=== PATIENT | male | born 1955 | race Caucasian/White ===

== ENCOUNTER → 2018-02-03 | Outpatient (CLI) | payer BC ==
[2018-02-03 14:57] LABS: HCT 47.7 % (39.0-53.0); HGB 15.4 gm/dL (13.0-17.5); MCH 27.3 pg (25.0-35.0); MCHC 32.2 g/dL (31.0-37.0); MCV 84.7 fL (80.0-100.0); Mean Platelet Volume 6.7; Platelet Count 230 k/uL (150-450); RBC 5.63 m/uL (4.30-5.90); RDW 15.1 % (11.5-15.5); WBC 6.8 k/uL (3.8-10.6)
[2018-02-03 15:07] LABS: Anion Gap 13 mmol/L; Blood Urea Nitrogen 19 mg/dL (9-20); Carbon Dioxide 24 mmol/L (22-30); Chloride 100 mmol/L (98-107); Potassium 4.9 mmol/L (3.5-5.1); Sodium 137 mmol/L (137-145)
== END ==
LOC: LABPAT 13:29
PROVIDERS: ATTEND Internal Medicine Interventional Cardiology
DX: Z01.812 Encounter for preprocedural laboratory examination (principal); I25.10 Atherosclerotic heart disease of native coronary artery without angina pectoris; I10 Essential (primary) hypertension; E78.1 Pure hyperglyceridemia
CPT/HCPCS: 36415; 80051; 82565; 84520; 85027

== ENCOUNTER → 2018-02-20 | Day surgery (SDC) | payer BC, MEDICARE ==
[2018-02-09 18:28] VITALS: BMI 29.4
[~2018-02-20] MED LIST: ALPRAZolam 0.25 MG TAB PO PRN; ALPRAZolam 0.5 MG TAB PO PRN; ASPIRIN 325 MG TAB PO STA; ATORVASTATIN 80 MG TAB PO STA; HYDROmorphone 1 MG/ML 1 ML SYRINGE IVP ONE; INSULIN ASPART 100 UNIT/ML 1 ML 10 ML VIAL SQ SCH; IOPAMIDOL-370 125ML BTL INJ ONE; METOPROLOL TARTRATE 5 MG/5 ML VIAL IVP ONE; MIDAZOLAM 2 MG/2 ML VIAL IV ONE; NITROGLYCERIN SL TABS 0.4 MG TAB SUBLINGUAL PRN; RX INFO: IV CONTRAST WAS GIVEN 1 EACH MISC MISCELLANE PRN; SODIUM CHLORIDE 0.9% 1,000 ML IV SCH; SODIUM CHLORIDE 0.9% 1,000 ML in EMPTY BAG 1 BAG IV ONE; fentaNYL (PF) 50 MCG/ML 2 ML AMP IV ONE
[2018-02-20 10:59] VITALS: RESP 18; TEMP 97.8
[2018-02-20 11:06] LABS: Glucose,Whole Blood 227 mg/dL (75-99)
[2018-02-20] MEDS: LIDOCAINE 1% INJ 10MG/ML (20 ML MDV) SQ ONE ×2 (13:18→13:41)
--- NOTE | 2018-02-20 17:04 | CC ---
CARDIAC CATHETERIZATION REPORT DATE OF SERVICE: February 20, 2018 PERFORMING PHYSICIAN: Federico Estrada MD, socially responsible investment adviser. PROCEDURE PERFORMED: 1. Selective right and left coronary angiogram. 2. Left heart catheterization. INDICATION: This is a pleasant 62-year-old gentleman with known history of coronary artery disease as well as peripheral arterial disease as well as diabetes, hypertension, dyslipidemia, who underwent recently an echocardiogram showed cardiomyopathy with EF of 40%. Subsequently underwent a myocardial perfusion imaging stress test and that showed moderate area of ischemia involving the lateral wall of the LV. Because of that, he was scheduled today to undergo a heart catheterization. APPROACH: Right brachial artery. COMPLICATION: None. LEVEL OF SEDATION: Moderate with sedation length of 36 minutes. PROCEDURE DESCRIPTION: After obtaining an informed consent, the patient was brought to the cardiac brick and blocker aid labor. Initially I attempted accessing the right radial artery but I was not able to feel a good pulse. At that time, I did access the right brachial artery using micropuncture technique, under ultrasound guidance, the micropuncture wire passed easily. Then I did place a 5-Slovenian sheath in the right brachial artery. I gave the patient 8000 units of heparin IV. I did after that selective right and left coronary angiogram using JR4 and JL3.5 catheter. Left heart catheterization was performed using 5-Slovenian pigtail catheter. The procedure was completed without any complication. SELECTIVE CORONARY ANGIOGRAM: 1. The right coronary artery is chronically occluded in the stented segment. The RCA fills by collaterals from the left coronary system. 2. The left main is angiographically normal. It bifurcates into the circumflex and left anterior descending artery. 3. The left circumflex is a large caliber vessel and it is a nondominant vessel. The proximal circumflex appeared to be angiographically normal and gives rise into a large OM branch which appeared to be angiographically normal. The mid circumflex is chronically occluded. There was ipsilateral collaterals [id number] collateral filling the distal circumflex and distal right coronary artery. 4. The left anterior descending coronary artery: The proximal LAD appeared to be angiographically normal. It gives rise into a large diagonal branch which appeared to be angiographically normal. The mid LAD and distal LAD appear to have mild disease only. CONCLUSION: 1. Chronic total occlusion of the mid right coronary artery and mid left circumflex. These finding are known from before. 2. Mild disease involving the left anterior descending artery. POSTPROCEDURE MANAGEMENT: Given the unchanging above findings, I did recommend maximized medical treatment and follow up with the patient. MMODL / IJN: [id number] /
--- NOTE | 2018-02-20 17:13 | LTR ---
February 20, 2018 To: Dr. Juanito Gibbs Re: Kurt Yeager (53) Dear. Dr. Gibbs, Mr. Kurt Yeager underwent heart catheterization and was found to have chronic total occlusion of the right coronary artery and chronic total occlusion of the left circumflex. Both findings are known from before. The LAD appears to have mild disease only. Given the unchanged findings, I did recommend maximizing medical treatment and followup with the patient. I want to thank you for allowing me to participate in his care. Please do not hesitate to call if you have any question or concern. Sincerely, Federico Estrada M.D. MARGE / ZEESHAN: [id number] /
[2018-02-20 18:55] VITALS: BP 135/90; PULSE 82
== END ==
LOC: CATHCVL 10:16
PROVIDERS: ATTEND Internal Medicine Interventional Cardiology
DX: I25.110 Atherosclerotic heart disease of native coronary artery with unstable angina pectoris (principal); I25.82 Chronic total occlusion of coronary artery; R94.39 Abnormal result of other cardiovascular function study; E11.51 Type 2 diabetes mellitus with diabetic peripheral angiopathy without gangrene; I10 Essential (primary) hypertension; I48.91 Unspecified atrial fibrillation; E78.5 Hyperlipidemia, unspecified; E78.1 Pure hyperglyceridemia; E78.00 Pure hypercholesterolemia, unspecified; L97.829 Non-pressure chronic ulcer of other part of left lower leg with unspecified severity; Z89.611 Acquired absence of right leg above knee
CPT/HCPCS: 93458; 85347; C1769 ×2; C1894; J2250; J2001; J3010; J1170; J1644; Q9967

== ENCOUNTER → 2018-03-17 | Outpatient (CLI) | payer MEDICARE ==
--- NOTE | 2018-03-17 10:54 | US ---
EXAMINATION TYPE: US scrotum with doppler. Grayscale and color Doppler Duplex imaging performed of jaymie amezcua scrotum. DATE OF EXAM: 03/17/2018 COMPARISON: NONE CLINICAL HISTORY: R39.89 Enlarged Testicular. Patient has AK amputation with prosthesis; stated has r ight testicular swelling x 3 weeks post cardiac/peripheral catheterization; PVOD, CAD EXAM MEASUREMENTS: TESTICLES: Right Testicle: 4.0 x 2.8 x 3.1 cm Left Testicle: 4.2 x 2.2 x 2.2 cm EPIDIDYMIS HEAD: Right Epididymis: 0.9 x 0.9 x 2.2 cm Left Epididymis: 2.3 x 2.7 x 1.8 cm PW and color flow Doppler was performed to assess for testicular vascularity; good bilateral color f low and waveforms are seen. There is no evidence of testicular torsion. Presence of hydroceles: yes, in right scrotal sac = 4.0 x 4.5 x 3.6cm and in left scrotal sac = 3.8 x 2.7 x 1.4cm Presence of varicoceles: prominent left epididymal head vessels but less than 2.5mm. Prominent epididymis is noted bilaterally. IMPRESSION: 1. Consider right-sided epididymitis. 2. Right greater than left hydroceles. 3. Left-sided varicocele.
== END | disposition home or self-care (01) ==
LOC: RADUSWWP 10:06
PROVIDERS: ATTEND Family Medicine
DX: N43.3 Hydrocele, unspecified (principal); I86.1 Scrotal varices
CPT/HCPCS: 76870; 93975

== ENCOUNTER 2019-12-13 06:38 | Day surgery (SDC) | payer MEDICARE ==
[2019-12-10 09:09] VITALS: BMI 30.5
[~2019-12-13 06:38] MED LIST changes: -ALPRAZolam 0.25 MG TAB PO PRN; -ALPRAZolam 0.5 MG TAB PO PRN; -ASPIRIN 325 MG TAB PO STA; -ATORVASTATIN 80 MG TAB PO STA; -HYDROmorphone 1 MG/ML 1 ML SYRINGE IVP ONE; -INSULIN ASPART 100 UNIT/ML 1 ML 10 ML VIAL SQ SCH; -IOPAMIDOL-370 125ML BTL INJ ONE; +LACTATED RINGERS 1,000 ML IV SCH; +LIDOCAINE 1% (10MG/ML) FOR IV START INTRADERMA PRN; -METOPROLOL TARTRATE 5 MG/5 ML VIAL IVP ONE; -MIDAZOLAM 2 MG/2 ML VIAL IV ONE; -NITROGLYCERIN SL TABS 0.4 MG TAB SUBLINGUAL PRN; -RX INFO: IV CONTRAST WAS GIVEN 1 EACH MISC MISCELLANE PRN; -SODIUM CHLORIDE 0.9% 1,000 ML IV SCH; -SODIUM CHLORIDE 0.9% 1,000 ML in EMPTY BAG 1 BAG IV ONE; -fentaNYL (PF) 50 MCG/ML 2 ML AMP IV ONE
[2019-12-13 06:58] VITALS: TEMP 97.8
[2019-12-13] MEDS ORDERED: LACTATED RINGERS 1,000 ML IV ONE (06:59)
[2019-12-13 07:08] LABS: Glucose,Whole Blood 151 mg/dL (75-99)
[2019-12-13] MEDS ORDERED: PROPOFOL 10 MG/ML 20 ML VIAL IV ONE (07:41)
--- NOTE | 2019-12-13 08:10 | P.PCN ---
Date of Procedure: 12/13/19 Description of Procedure: BRIEF HISTORY: Patient is a 64-year-old female presenting for outpatient colonoscopy for screening for malignant neoplasm of the colon. Patient has a history of colon polyps in the past. He denies any change in bowel habits, blood per rectum or abdominal pain. PROCEDURE PERFORMED: Colonoscopy with polypectomy. PREOPERATIVE DIAGNOSIS: Screening for malignant neoplasm of the colon, last colonoscopy 5 years ago, personal history of colon polyps. ESTIMATED BLOOD LOSS: Minimal. IV sedation per Anesthesia. PROCEDURE: After informed consent was obtained, the patient, was brought into the endoscopy unit. IV sedation was administered by Anesthesia under continuous monitoring. Digital rectal examination was normal. Initially the Olympus CF-190 flexible video colonoscope was then inserted in the rectum, gradually advanced into the cecum without any difficulty. Careful examination was performed as the scope was gradually being withdrawn. Ileocecal valve and the appendiceal orifice were visualized and appeared normal. Prep was excellent. Mucosa of the cecum, ascending colon, transverse colon, descending colon, sigmoid colon, and rectum appeared normal. Multiple scattered diverticula throughout the colon. 2 diminutive sigmoid polyps removed with cold forcep polypectomy. Retroflexion was performed in the rectum and no lesions were seen, low-grade internal hemorrhoids. The patient tolerated the procedure well. IMPRESSION: 2 diminutive sigmoid polyps removed with cold forcep polypectomy. Mild sigmoid diverticulosis. Internal hemorrhoids. RECOMMENDATIONS: Findings of this examination were discussed with the patient and his . Okay to resume diet. Okay to resume medications. Await pathology from polypectomies. Would recommend repeat colonoscopy in 7 years for colon polyps pending pathology from polypectomies.
[2019-12-13 08:36] VITALS: BP 139/81; PULSE 83; RESP 16
== END 2019-12-13 08:39 | disposition home or self-care (01) ==
LOC: ORWHC2ENDO 06:38
PROVIDERS: ATTEND Internal Medicine
DX: Z12.11 Encounter for screening for malignant neoplasm of colon (principal); K63.5 Polyp of colon; K57.30 Diverticulosis of large intestine without perforation or abscess without bleeding; K64.8 Other hemorrhoids; Z86.010 Personal history of colon polyps; Z87.891 Personal history of nicotine dependence; I25.10 Atherosclerotic heart disease of native coronary artery without angina pectoris; I10 Essential (primary) hypertension; E78.5 Hyperlipidemia, unspecified; E11.51 Type 2 diabetes mellitus with diabetic peripheral angiopathy without gangrene; I25.2 Old myocardial infarction; Z98.890 Other specified postprocedural states; Z79.01 Long term (current) use of anticoagulants; Z79.02 Long term (current) use of antithrombotics/antiplatelets; Z79.82 Long term (current) use of aspirin; Z79.4 Long term (current) use of insulin; Z79.1 Long term (current) use of non-steroidal anti-inflammatories (NSAID); Z79.899 Other long term (current) drug therapy; I48.91 Unspecified atrial fibrillation; Z88.8 Allergy status to other drugs, medicaments and biological substances
CPT/HCPCS: 88305; 45380; J2704

== ENCOUNTER 2021-08-05 20:25 | Emergency (ER) | payer MEDICARE ==
[2021-08-05 21:48] VITALS: BP 159/88; PULSE 85; RESP 18; TEMP 98.2
[2021-08-05] MEDS ORDERED: LIDOCAINE 1% PF 10 MG/ML (5 ML AMP) SQ ONE (22:39)
[2021-08-05] MEDS ORDERED: DIPH,PERTUS(ACELL)TETVAC-LF 0.5 ML VIAL IM ONE (22:40)
--- NOTE | 2021-08-05 23:25 | ED ---
General Adult HPI - General Chief complaint: Wound/Laceration Stated complaint: finger lac Time Seen by Provider: 08/05/21 22:44 Source: patient, RN notes reviewed Mode of arrival: wheelchair Limitations: no limitations - History of Present Illness Initial comments: Patient is a 66-year-old male presents to the emergency room after cutting the tip of his left second digit on a table saw earlier today. He has a past medical history significant for diabetes, recurrent vascular ulcers with an AKA. He has a left lower extremity prosthesis. 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 He is unsure when his last tetanus was. He denies any other complaints or concerns at this time. - Related Data Home Medications Medication Instructions Recorded Confirmed Atorvastatin [Lipitor] 40 mg PO DAILY 11/07/13 12/12/19 lisinopriL [Zestril] 2.5 mg PO 1200 07/24/14 12/12/19 Pentoxifylline [TRENtal] 400 mg PO TID 02/09/18 12/12/19 Gabapentin [Neurontin] 600 mg PO DAILY PRN 12/10/19 12/12/19 Ibuprofen 400 mg PO DIRECTED PRN 12/10/19 12/12/19 Rivaroxaban [Xarelto] 20 mg PO DAILY 12/10/19 12/12/19 Spironolactone 12.5 mg PO DAILY 12/10/19 12/12/19 carvediloL [Coreg] 6.25 mg PO BID 12/10/19 12/12/19 metFORMIN HCL [Glucophage] 1,000 mg PO BID 12/10/19 12/12/19 Insulin NPH Hum/Reg Insulin Hm 35 unit SQ QAM 12/12/19 12/12/19 [NovoLIN 70-30 100 UNIT/ML VIAL] Insulin NPH Hum/Reg Insulin Hm 17 unit SQ HS 12/12/19 12/12/19 [Novolin 70-30 Flexpen] Previous Rx's Medication Instructions Recorded Aspirin EC [Ecotrin Low Dose] 81 mg PO DAILY #30 tablet. 10/06/13 Sulfamethox-Tmp 800-160Mg [Bactrim 1 tab PO Q12HR 5 Days #10 tab 08/05/21 DS 800-160 mg] Allergies Allergy/AdvReac Type Severity Reaction Status Date / Time empagliflozin AdvReac Unknown joints ache Verified 08/05/21 21:48 [From Jardiance] Review of Systems ROS Statement: Those systems with pertinent positive or pertinent negative responses have been documented in the HPI. ROS Other: All systems not noted in ROS Statement are negative. Past Medical History Past Medical History: Diabetes Mellitus, Deep Vein Thrombosis (DVT), Hyperlipidemia, Hypertension, Myocardial Infarction ([place]), Sleep Apnea/CPAP/BIPAP, Vascular Disorder Additional Past Medical History / Comment(s): HX OF DVT'S 2013 (legs & arm)., PAD, Hx DIABETIC ULCERS, LEFT ANKLE WOUND THAT IS HEALING, HX OF SLEEP APNEA(RESOLVED WITH WT LOSS)., RIGHT AKA WITH PHANTHOM FOOT PAIN., WEARS PRO STHESIS. Last Myocardial Infarction Date:: 2001 History of Any Multi-Drug Resistant Organisms: None Reported Past Surgical History: Heart Catheterization With Stent, Hernia Repair Additional Past Surgical History / Comment(s): right FEMPOP BYPASS by Dr. Orozco on 11/15/13, STENTS TO MARIANELA GROINS DONE AT [facility] in 2006, RIGHT ABOVE KNEE AMPUTATION 11/2013. AMPUTATION 4TH TOES LT FOOT Past Anesthesia/Blood Transfusion Reactions: No Reported Reaction Date of Last Stent Placement:: 2001 & 2006 Past Psychological History: No Psychological Hx Reported Smoking Status: Former smoker Past Alcohol Use History: Rare Past Drug Use History: None Reported - Past Family History Father Family Medical History: CVA/TIA, Diabetes Mellitus, Vascular Disorder Additional Family Medical History / Comment(s): leg amputation, in long term d/t diabetic cx. Mother Family Medical History: Cancer, Coronary Artery Disease (CAD) Additional Family Medical History / Comment(s): LYMPHOMA Sister(s) Family Medical History: Cancer General Exam Limitations: no limitations General appearance: alert, in no apparent distress Head exam: Present: atraumatic, normocephalic, normal inspection Eye exam: Present: normal appearance, PERRL, EOMI. Absent: scleral icterus, conjunctival injection, periorbital swelling ENT exam: Present: normal exam, mucous membranes moist Left Hand Wrist exam: Present: full ROM, tenderness, laceration. Absent: nail avulsion Vascular: Absent: vascular compromise Course Vital Signs 08/05/21 21:44 Temperature 98.2 F Pulse Rate 85 Respiratory 18 Rate Blood Pressure 159/88 O2 Sat by Pulse 96 Oximetry Procedures - Laceration Laceration #1 Consent Obtained: verbal consent Indication: laceration Site: other (left second digit) Description: linear Depth: simple, single layer Anesthetic Used: lidocaine 1% Anesthesia Technique: local infiltration Pre-repair: irrigated extensively Type of Sutures: nylon Size of Sutures: 4-0 Number of Sutures: 3 Technique: simple, interrupted Complications: bleeding (Minimal) Patient Tolerated Procedure: well, no complications Medical Decision Making - Medical Decision Making No indication for diagnostic imaging. Sutures 3 placed to the distal tip of left second digit. Tolerated well. Tetanus will be given due to unknown last tetanus. Will give empiric antibiotics due to extensive past medical history and diabetic history. Case reviewed with Dr. Yepez Disposition Clinical Impression: Laceration Disposition: HOME SELF-CARE Condition: Fair Instructions (If sedation given, give patient instructions): Laceration (ED), Care For Your Stitches (ED) Additional Instructions: Please keep wound clean and dry. If needed keep covered. Complete course of empiric antibiotics and monitor for signs and symptoms of infection. Please have sutures removed in 7-10 days. Utilize Tylenol as needed for pain. Avoid ibuprofen with Pradaxa. Please return to the Emergency Department if symptoms worsen or any other concerns. Prescriptions: Sulfamethox-Tmp 800-160Mg [Bactrim DS 800-160 mg] 1 tab PO Q12HR 5 Days #10 tab Is patient prescribed a controlled substance at d/c from ED?: No Referrals: Ember Almonte DO [Primary Care Provider] - 1-2 days Time of Disposition: 23:30
== END 2021-08-05 23:33 | disposition home or self-care (01) ==
LOC: EC 20:25
DX: S61.211A Laceration without foreign body of left index finger without damage to nail, initial encounter (principal); E11.9 Type 2 diabetes mellitus without complications; I10 Essential (primary) hypertension; I25.2 Old myocardial infarction; E78.5 Hyperlipidemia, unspecified; Z86.718 Personal history of other venous thrombosis and embolism; Z87.891 Personal history of nicotine dependence; Z79.4 Long term (current) use of insulin; Z79.84 Long term (current) use of oral hypoglycemic drugs; Z79.01 Long term (current) use of anticoagulants; Z79.82 Long term (current) use of aspirin; Z79.899 Other long term (current) drug therapy; W27.0XXA Contact with workbench tool, initial encounter
CPT/HCPCS: 12001; 99282

== ENCOUNTER 2021-09-19 15:47 | Emergency (ER) | payer MEDICARE ==
--- NOTE | 2021-09-19 16:05 | ED ---
General Adult HPI - General Chief complaint: Urogenital Stated complaint: blood in urine Time Seen by Provider: 09/19/21 15:52 Source: patient, RN notes reviewed Mode of arrival: ambulatory Limitations: no limitations - History of Present Illness Initial comments: Patient is a pleasant 66-year-old male presenting to the emergency department with concerns with hematuria. Onset of symptoms was this morning. Patient has had around 3 episodes today. No dysuria. No frequency. No abdominal or flank pain. No history of similar symptoms previously. Patient does take several to secondary to history of previous DVTs. No chest pain or dyspnea. - Related Data Home Medications Medication Instructions Recorded Confirmed Atorvastatin [Lipitor] 40 mg PO DAILY 11/07/13 12/12/19 lisinopriL [Zestril] 2.5 mg PO 1200 07/24/14 12/12/19 Pentoxifylline [TRENtal] 400 mg PO TID 02/09/18 12/12/19 Gabapentin [Neurontin] 600 mg PO DAILY PRN 12/10/19 12/12/19 Ibuprofen 400 mg PO DIRECTED PRN 12/10/19 12/12/19 Rivaroxaban [Xarelto] 20 mg PO DAILY 12/10/19 12/12/19 Spironolactone 12.5 mg PO DAILY 12/10/19 12/12/19 carvediloL [Coreg] 6.25 mg PO BID 12/10/19 12/12/19 metFORMIN HCL [Glucophage] 1,000 mg PO BID 12/10/19 12/12/19 Insulin NPH Hum/Reg Insulin Hm 35 unit SQ QAM 12/12/19 12/12/19 [NovoLIN 70-30 100 UNIT/ML VIAL] Insulin NPH Hum/Reg Insulin Hm 17 unit SQ HS 12/12/19 12/12/19 [Novolin 70-30 Flexpen] Previous Rx's Medication Instructions Recorded Aspirin EC [Ecotrin Low Dose] 81 mg PO DAILY #30 tablet. 10/06/13 Sulfamethox-Tmp 800-160Mg [Bactrim 1 tab PO Q12HR 5 Days #10 tab 08/05/21 DS 800-160 mg] Cephalexin [Keflex] 500 mg PO TID #21 cap 09/19/21 Allergies Allergy/AdvReac Type Severity Reaction Status Date / Time empagliflozin AdvReac Unknown joints ache Verified 09/19/21 15:51 [From Jardiance] Review of Systems ROS Statement: Those systems with pertinent positive or pertinent negative responses have been documented in the HPI. ROS Other: All systems not noted in ROS Statement are negative. Constitutional: Denies: fever Eyes: Denies: eye pain ENT: Denies: ear pain Respiratory: Denies: cough, dyspnea Cardiovascular: Denies: chest pain Endocrine: Denies: fatigue Gastrointestinal: Denies: abdominal pain, vomiting Genitourinary: Reports: hematuria. Denies: urgency, dysuria, frequency, discharge, testicular pain, testicular mass Musculoskeletal: Denies: back pain Past Medical History Past Medical History: Diabetes Mellitus, Deep Vein Thrombosis (DVT), Hyperlipidemia, Hypertension, Myocardial Infarction ([place]), Sleep Apnea/CPAP/BIPAP, Vascular Disorder Additional Past Medical History / Comment(s): HX OF DVT'S 2013 (legs & arm)., PAD, Hx DIABETIC ULCERS, LEFT ANKLE WOUND THAT IS HEALING, HX OF SLEEP APNEA(RESOLVED WITH WT LOSS)., RIGHT AKA WITH PHANTHOM FOOT PAIN., WEARS PROSTHESIS. Last Myocardial Infarction Date:: 2001 History of Any Multi-Drug Resistant Organisms: None Reported Past Surgical History: Heart Catheterization With Stent, Hernia Repair Additional Past Surgical History / Comment(s): right FEMPOP BYPASS by Dr. Orozco on 11/15/13, STENTS TO MARIANELA GROINS DONE AT [facility] in 2006, RIGHT ABOVE KNEE AMPUTATION 11/2013. AMPUTATION 4TH TOES LT FOOT Past Anesthesia/Blood Transfusion Reactions: No Reported Reaction Date of Last Stent Placement:: 2001 & 2006 Past Psychological History: No Psychological Hx Reported Smoking Status: Former smoker Past Alcohol Use History: Rare Past Drug Use History: None Reported - Past Family History Father Family Medical History: CVA/TIA, Diabetes Mellitus, Vascular Disorder Additional Family Medical History / Comment(s): leg amputation, in senior living d/t diabetic cx. Mother Family Medical History: Cancer, Coronary Artery Disease (CAD) Additional Family Medical History / Comment(s): LYMPHOMA Sister(s) Family Medical History: Cancer General Exam Limitations: no limitations General appearance: alert, in no apparent distress Head exam: Present: normocephalic Eye exam: Present: normal appearance Neck exam: Present: normal inspection Respiratory exam: Present: normal lung sounds bilaterally Cardiovascular Exam: Present: regular rate, normal rhythm GI/Abdominal exam: Present: soft. Absent: tenderness exam: Present: normal inspection. Absent: testicular tenderness, urethral d ischarge, scrotal swelling Extremities exam: Present: other (Right leg amputation) Neurological exam: Present: alert Psychiatric exam: Present: normal affect, normal mood Skin exam: Present: normal color Course Vital Signs 09/19/21 15:49 Temperature 97.2 F L Pulse Rate 94 Respiratory 20 Rate Blood Pressure 137/76 O2 Sat by Pulse 96 Oximetry Medical Decision Making - Medical Decision Making Patient reevaluated. Patient and family updated - Lab Data Result diagrams: 09/19/21 16:12 09/19/21 16:12 Lab Results 09/19/21 09/19/21 09/19/21 Range/Units 16:12 16:12 16:12 WBC 4.7 (3.8-10.6) k/uL RBC 5.21 (4.30-5.90) m/uL Hgb 15.3 (13.0-17.5) gm/dL Hct 45.9 (39.0-53.0) % MCV 88.0 (80.0-100.0) fL MCH 29.4 (25.0-35.0) pg MCHC 33.4 (31.0-37.0) g/dL RDW 14.1 (11.5-15.5) % Plt Count 167 (150-450) k/uL MPV 7.6 Neutrophils % 48 % Lymphocytes % 41 % Monocytes % 6 % Eosinophils % 2 % Basophils % 1 % Neutrophils # 2.2 (1.3-7.7) k/uL Lymphocytes # 1.9 (1.0-4.8) k/uL Monocytes # 0.3 (0-1.0) k/uL Eosinophils # 0.1 (0-0.7) k/uL Basophils # 0.1 (0-0.2) k/uL PT 10.6 (9.0-12.0) sec INR 1.0 (<1.2) APTT 25.5 (22.0-30.0) sec Sodium (137-145) mmol/L Potassium (3.5-5.1) mmol/L Chloride (98-107) mmol/L Carbon Dioxide (22-30) mmol/L Anion Gap mmol/L BUN (9-20) mg/dL Creatinine (0.66-1.25) mg/dL Est GFR (CKD-EPI)AfAm (>60 ml/min/1.73 sqM) Est GFR (CKD-EPI)NonAf (>60 ml/min/1.73 sqM) Glucose (74-99) mg/dL Calcium (8.4-10.2) mg/dL Total Bilirubin (0.2-1.3) mg/dL AST (17-59) U/L ALT (4-49) U/L Alkaline Phosphatase (38-126) U/L Total Protein (6.3-8.2) g/dL Albumin (3.5-5.0) g/dL Urine Color Red Urine Appearance Turbid (Clear) Urine pH 5.5 (5.0-8.0) Ur Specific [place] 1.021 (1.001-1.035) Urine Protein 2+ H (Negative) Urine Glucose (UA) 1+ H (Negative) Urine Ketones Trace H (Negative) Urine Blood Large H (Negative) Urine Nitrite Negative (Negative) Urine Bilirubin Negative (Negative) Urine Urobilinogen <2.0 (<2.0) mg/dL Ur Leukocyte Esterase Trace H (Negative) Urine RBC >182 H (0-5) /hpf 09/19/21 Range/Units 16:12 WBC (3.8-10.6) k/uL RBC (4.30-5.90) m/uL Hgb (13.0-17.5) gm/dL Hct (39.0-53.0) % MCV (80.0-100.0) fL MCH (25.0-35.0) pg MCHC (31.0-37.0) g/dL RDW (11.5-15.5) % Plt Count (150-450) k/uL MPV Neutrophils % % Lymphocytes % % Monocytes % % Eosinophils % % Basophils % % Neutrophils # (1.3-7.7) k/uL Lymphocytes # (1.0-4.8) k/uL Monocytes # (0-1.0) k/uL Eosinophils # (0-0.7) k/uL Basophils # (0-0.2) k/uL PT (9.0-12.0) sec INR (<1.2) APTT (22.0-30.0) sec Sodium 140 (137-145) mmol/L Potassium 4.3 (3.5-5.1) mmol/L Chloride 107 (98-107) mmol/L Carbon Dioxide 22 (22-30) mmol/L Anion Gap 11 mmol/L BUN 14 (9-20) mg/dL Creatinine 0.72 (0.66-1.25) mg/dL Est GFR (CKD-EPI)AfAm >90 (>60 ml/min/1.73 sqM) Est GFR (CKD-EPI)NonAf >90 (>60 ml/min/1.73 sqM) Glucose 219 H (74-99) mg/dL Calcium 9.5 (8.4-10.2) mg/dL Total Bilirubin 0.4 (0.2-1.3) mg/dL AST 21 (17-59) U/L ALT 24 (4-49) U/L Alkaline Phosphatase 64 (38-126) U/L Total Protein 6.6 (6.3-8.2) g/dL Albumin 4.0 (3.5-5.0) g/dL Urine Color Urine Appearance (Clear) Urine pH (5.0-8.0) Ur Specific [place] (1.001-1.035) Urine Protein (Negative) Urine Glucose (UA) (Negative) Urine Ketones (Negative) Urine Blood (Negative) Urine Nitrite (Negative) Urine Bilirubin (Negative) Urine Urobilinogen (<2.0) mg/dL Ur Leukocyte Esterase (Negative) Urine RBC (0-5) /hpf - Radiology Data Radiology results: image reviewed (KUB shows possible left renal calculi) Disposition Clinical Impression: Hematuria Disposition: HOME SELF-CARE Condition: Stable Instructions (If sedation given, give patient instructions): Hematuria (ED) Additional Instructions: Please follow-up with primary care physician Tuesday. Have primary care physician further direct use of Xarelto. Hold Xarelto through the weekend. Please also follow-up with urology in the next couple days for recheck, number provided. Return for other areas of bleeding, pain, fever, unable to pass urine, worsening symptoms or other concerns. Prescription for antibiotics sent to pharmacy Prescriptions: Cephalexin [Keflex] 500 mg PO TID #21 cap Is patient prescribed a controlled substance at d/c from ED?: No Referrals: Ember Almonte DO [Primary Care Provider] - 1-2 days Paras Arango MD [STAFF PHYSICIAN] - 1-2 days Time of Disposition: 17:39
[2021-09-19 16:31] LABS: Basophils # (A) 0.1 k/uL (0-0.2); Basophils % (A) 1 %; Eosinophils # (A) 0.1 k/uL (0-0.7); Eosinophils % (A) 2 %; HCT 45.9 % (39.0-53.0); HGB 15.3 gm/dL (13.0-17.5); Lymphocytes # (A) 1.9 k/uL (1.0-4.8); Lymphocytes % (A) 41 %; MCH 29.4 pg (25.0-35.0); MCHC 33.4 g/dL (31.0-37.0); Mean Platelet Volume 7.6; Monocytes # (A) 0.3 k/uL (0-1.0); Monocytes % (A) 6 %; Neutrophils # (A) 2.2 k/uL (1.3-7.7); Neutrophils % (A) 48 %; Platelet Count 167 k/uL (150-450); RBC 5.21 m/uL (4.30-5.90); RDW 14.1 % (11.5-15.5); WBC 4.7 k/uL (3.8-10.6)
[2021-09-19 16:42] LABS: Partial Thromboplastin Time 25.5 sec (22.0-30.0); Prothrombin Time 10.6 sec (9.0-12.0)
[2021-09-19 16:49] LABS: ALT 24 U/L (4-49); AST 21 U/L (17-59); African American GFR (CKD) >90 (>60 ml/min/1.73 sqM); Alkaline Phosphatase 64 U/L (38-126); Anion Gap 11 mmol/L; Blood Urea Nitrogen 14 mg/dL (9-20); Calcium 9.5 mg/dL (8.4-10.2); Carbon Dioxide 22 mmol/L (22-30); Chloride 107 mmol/L (98-107); Glucose 219 mg/dL (74-99); Non-African American GFR(CKD) >90 (>60 ml/min/1.73 sqM); Potassium 4.3 mmol/L (3.5-5.1); Sodium 140 mmol/L (137-145); Total Bilirubin 0.4 mg/dL (0.2-1.3); Total Protein 6.6 g/dL (6.3-8.2)
--- NOTE | 2021-09-19 17:09 | XR ---
EXAMINATION TYPE: XR KUB DATE OF EXAM: 09/19/2021 COMPARISON: 11/18/2013 HISTORY: Abdominal pain TECHNIQUE: FINDINGS: 2 views upright were obtained. No sign of intestinal obstruction or pneumoperitoneum. Fecal pattern is normal. No evidence of a mass. There is possible 4 mm calculus over the left kidney. IMPRESSION: Nonacute abdomen. Possible left renal calculus.
[2021-09-19 17:10] LABS: RBC,Urine >182 /hpf (0-5)
[2021-09-19 17:21] LABS: Appearance,Urine Turbid (Clear); Bilirubin,Urine Negative (Negative); Blood,Urine Large (Negative); Color,Urine Red; Glucose,Urine (UA) 1+ (Negative); Ketones,Urine Trace (Negative); Leukocyte Esterase,Urine Trace (Negative); Nitrite,Urine Negative (Negative); PH, Urine 5.5 (5.0-8.0); Protein,Urine 2+ (Negative); Specific Gravity,Urine 1.021 (1.001-1.035); Urobilinogen,Urine <2.0 mg/dL (<2.0)
[2021-09-19 17:58] VITALS: BP 139/68; PULSE 79; RESP 16; TEMP 98
== END 2021-09-19 17:58 | disposition home or self-care (01) ==
LOC: EC 15:47
DX: R31.9 Hematuria, unspecified (principal); E11.9 Type 2 diabetes mellitus without complications; Z87.891 Personal history of nicotine dependence; Z88.8 Allergy status to other drugs, medicaments and biological substances
CPT/HCPCS: 36415; 74018; 80053; 81001; 85025; 85610; 85730; 99283

== ENCOUNTER → 2021-10-14 | Outpatient (CLI) | payer MEDICARE ==
[2021-10-14 14:07] LABS: African American GFR (CKD) >90 (>60 ml/min/1.73 sqM); Blood Urea Nitrogen 15 mg/dL (9-20); Non-African American GFR(CKD) >90 (>60 ml/min/1.73 sqM)
--- NOTE | 2021-10-14 17:31 | CT ---
EXAMINATION TYPE: CT urogram wo/w con DATE OF EXAM: 10/14/2021 COMPARISON: None HISTORY: Gross hematuria CT DLP: 4191 mGycm Automated exposure control for dose reduction was used. Contrast: None Technique: Axial images 3 mm thick sections. Early and delayed post contrast imaging is performed. Th ree-D reconstructed images performed by the technologist are reviewed. FINDINGS: Renal calyces infundibula and renal pelves appear normal. Ureters were visualized following normal ca liber course and contour to the urinary bladder. The urinary bladder may have a defect near the inser tion of the left ureter. Diffuse wall thickening is present with a more focal nodular thickening. Add itional workup for urinary bladder wall neoplasm is recommended. Note is made of a 0.8 cm nonobstructing inferior pole left renal stone. Limited CT sections are obtained from the lung bases which are clear CT ABDOMEN: Liver has mild fatty infiltration. Spleen and pancreas as visualized are unremarkable. Th e gallbladder is unremarkable. Adrenal glands are normal. Kidneys appear normal without masses cysts or hydronephrosis. Vascular calcifications within the aorta. There is an aortic stent anterior to the aorta which extends to the femoral arteries. Prostate is prominent. Lateral wall abnormality is les s well-visualized on the axial plane images. IMPRESSION: 1. 4.0 X 1.3 CM NODULAR WALL THICKENING ALONG THE LEFT LATERAL URINARY BLADDER WALL NEAR THE INSERTIO N OF THE URETER SUSPICIOUS FOR UNDERLYING MASS. ADDITIONAL WORKUP FOR NEOPLASM IS RECOMMENDED. 2. NONOBSTRUCTING 0.8 CM INFERIOR POLE LEFT RENAL STONE
== END | disposition home or self-care (01) ==
LOC: RADCTMAIN 13:05
PROVIDERS: ATTEND Urology
DX: N32.89 Other specified disorders of bladder (principal); R31.0 Gross hematuria
CPT/HCPCS: 82565; 84520; 74178; 36415; 74400; Q9967

== ENCOUNTER → 2021-11-30 | Outpatient (CLI) | payer MEDICARE ==
--- NOTE | 2021-11-30 15:18 | NM ---
EXAMINATION TYPE: NM bone scan whole body DATE OF EXAM: 11/30/2021 COMPARISON: NONE HISTORY: Bladder cancer. Delayed whole-body scanning was performed following the injection of 22.7 mCi Tc 99m MDP. Images acq uired 3 hours post injection. FINDINGS: There is increased uptake within the bilateral shoulder, sacroiliac joints , left knee, and left ankl e/foot consistent with degenerative changes. Focal increased uptake within the sternum severity relat ed to degenerative changes. No other photopenic areas or areas of increased activity are identified. Physiologic radiotracer activity is demonstrated within the kidneys and bladder. IMPRESSION: No definitive uptake to suggest metastatic disease.
== END | disposition home or self-care (01) ==
LOC: RADNMMAIN 09:35
PROVIDERS: ATTEND Urology
DX: C67.9 Malignant neoplasm of bladder, unspecified (principal)
CPT/HCPCS: 78306; A9503

== ENCOUNTER 2022-05-07 08:57 | Day surgery (SDC) | payer MEDICARE ==
[~2022-05-07 08:57] MED LIST changes: +ACETAMINOPHEN TAB 500 MG TAB PO PRN; +HEPARIN SODIUM,PORCINE/PF 5,000 UNIT/0.5 ML SYRINGE SQ PRN; -LACTATED RINGERS 1,000 ML IV SCH; -LIDOCAINE 1% (10MG/ML) FOR IV START INTRADERMA PRN
[2022-05-07] MEDS ORDERED: LACTATED RINGERS 1,000 ML IV ONE (09:17)
[2022-05-07 09:34] VITALS: TEMP 97.5
[2022-05-07 09:34] LABS: Glucose,Whole Blood 285 mg/dL (70-110)
--- NOTE | 2022-05-07 09:42 | P.GSHP ---
History of Present Illness H&P Date: 05/07/22 Chief Complaint: Bladder cancer 66-year-old male here for Port-A-Cath removal. Patient with history of bladder cancer. He required Port-A-Cath placement earlier this year. Unfortunately the patient's catheter developed a fibrin sheath limiting the usage of the catheter. He is no longer utilizing the port and oncology is advising removal. Past Medical History Past Medical History: Cancer, Diabetes Mellitus, Deep Vein Thrombosis (DVT), Hyperlipidemia, Hypertension, Myocardial Infarction ([place]), Sleep Apnea/CPAP/BIPAP, Vascular Disorder Additional Past Medical History / Comment(s): HX OF DVT'S 2013 (legs & arm)., PAD, Hx DIABETIC ULCERS, LEFT ANKLE WOUND THAT IS HEALING, HX OF SLEEP APNEA(RESOLVED WITH WT LOSS)., RIGHT AKA , WEARS PROSTHESIS. bladder cancer get injections to his eyes for diabetic retinopathy approx q 6 weeks Last Myocardial Infarction Date:: 2001 History of Any Multi-Drug Resistant Organisms: None Reported Past Surgical History: Bladder Surgery, Heart Catheterization With Stent, Hernia Repair Additional Past Surgical History / Comment(s): right FEMPOP BYPASS by Dr. Orozco on 11/15/13, STENTS TO MARIANELA GROINS DONE AT [facility] in 2006, RIGHT ABOVE KNEE AMPUTATION 11/2013. AMPUTATION 4TH TOES LT FOOT, "BLADDER SCRAPING" X2 AT [facility], URETHRAL STENT PLACMENT AND REMOVAL. amputation revision feb 2021 Past Anesthesia/Blood Transfusion Reactions: No Reported Reaction Additional Past Anesthesia/Blood Transfusion Reaction / Comment(s): PT STATES HE FELT REALLY "POORLY" AFTER ONE OF HIS RECENT SURGERIES AT [facility] Date of Last Stent Placement:: 2001 & 2006 Smoking Status: Former smoker - Past Family History Father Family Medical History: CVA/TIA, Diabetes Mellitus, Vascular Disorder Additional Family Medical History / Comment(s): leg amputation, in residential d/t diabetic cx. Mother Family Medical History: Cancer, Coronary Artery Disease (CAD) Additional Family Medical History / Comment(s): LYMPHOMA Sister(s) Family Medical History: Cancer Medications and Allergies Home Medications Medication Instructions Recorded Confirmed Type Aspirin EC [Ecotrin Low Dose] 81 mg PO DAILY #30 tablet. 10/06/13 05/07/22 Rx Atorvastatin [Lipitor] 40 mg PO DAILY 11/07/13 05/07/22 History lisinopriL [Zestril] 2.5 mg PO DAILY 07/24/14 05/07/22 History Pentoxifylline [TRENtal] 400 mg PO TID 02/09/18 05/07/22 History Gabapentin [Neurontin] 300 mg PO QID PRN 12/10/19 05/07/22 History Ibuprofen 200 mg PO BID 12/10/19 05/07/22 History Rivaroxaban [Xarelto] 20 mg PO DAILY 12/10/19 05/07/22 History Spironolactone 12.5 mg PO DAILY 12/10/19 05/07/22 History carvediloL [Coreg] 12.5 mg PO BID 12/10/19 05/07/22 History metFORMIN HCL [Glucophage] 1,000 mg PO BID 12/10/19 05/07/22 History Insulin NPH Hum/Reg Insulin Hm 50 unit SQ BID 12/12/19 05/07/22 History [Novolin 70-30 Flexpen] Loratadine 10 mg PO DAILY 03/11/22 05/07/22 History Allergies Allergy/AdvReac Type Severity Reaction Status Date / Time empagliflozin AdvReac Unknown joints ache Verified 05/07/22 09:22 [From Jardiance] Surgical - Exam Vital Signs Temp Pulse Resp BP Pulse Ox 97.5 F L 106 H 15 168/77 98 05/07/22 09:32 05/07/22 09:32 05/07/22 09:32 05/07/22 09:32 05/07/22 09:32 Physical exam: General: Well-developed, well-nourished HEENT: Normocephalic, sclerae nonicteric Abdomen: Nontender, nondistended Extremities: No edema Neuro: Alert and oriented Results - Labs Abnormal Lab Results - Last 24 Hours (Table) 05/07/22 Range/Units 09:32 POC Glucose (mg/dL) 285 H (70-110) mg/dL Assessment and Plan (1) Bladder cancer Narrative/Plan: Will proceed with Port-A-Cath removal at this time. Current Visit: No Status: Acute Code(s): C67.9 - MALIGNANT NEOPLASM OF BLADDER, UNSPECIFIED SNOMED Code(s): 553951129
[2022-05-07] MEDS ORDERED: LIDOCAINE 1% INJ 10MG/ML (5 ML VIAL-PF) SQ ONE ×2 (10:44→11:10)
[2022-05-07] MEDS ORDERED: MIDAZOLAM 2 MG/2 ML VIAL ONE (10:50)
[2022-05-07] MEDS ORDERED: PROPOFOL 10 MG/ML 20 ML VIAL IV ONE (10:50)
[2022-05-07] MEDS ORDERED: fentaNYL (PF) 50 MCG/ML 2 ML AMP ONE (10:50)
[2022-05-07] MEDS ORDERED: NALOXONE 0.4 MG/ML 1 ML VIAL IV PRN (11:36)
--- NOTE | 2022-05-07 11:39 | P.OP ---
Date of Procedure: 05/07/22 Procedure(s) Performed: PREOPERATIVE DIAGNOSIS: Bladder cancer POSTOPERATIVE DIAGNOSIS: Same PROCEDURE: Port-A-Cath removal SURGEON: Tammy EBL: Minimal ANESTHESIA: Sedation COMPLICATIONS: None OPERATIVE PROCEDURE: Patient was placed in the supine position. The patient was sedated per anesthesia that time. The chest was prepped and draped in the usual sterile fashion. The skin was localized with Marcaine solution. The previous incision was re-incised using a scalpel. The port was easily excised using accommodation of blunt dissection sharp dissection and electrocautery. The subcutaneous tissues were reapproximated using 3-0 Vicryl sutures. The skin was reapproximated using 4-0 Monocryl sutures. Skin glue was then applied. DISPOSITION: Stable to recovery room
[2022-05-07 11:44] LABS: Glucose,Whole Blood 259 mg/dL (70-110)
[2022-05-07 11:57] VITALS: BP 147/88; PULSE 94; RESP 20
== END 2022-05-07 12:13 | disposition home or self-care (01) ==
LOC: OR 08:57
PROVIDERS: ATTEND Surgery
DX: C67.9 Malignant neoplasm of bladder, unspecified (principal); Z45.2 Encounter for adjustment and management of vascular access device; E11.9 Type 2 diabetes mellitus without complications; E78.5 Hyperlipidemia, unspecified; I10 Essential (primary) hypertension; I25.2 Old myocardial infarction; G47.30 Sleep apnea, unspecified; I25.10 Atherosclerotic heart disease of native coronary artery without angina pectoris; Z89.611 Acquired absence of right leg above knee; Z98.890 Other specified postprocedural states; Z86.718 Personal history of other venous thrombosis and embolism; Z85.51 Personal history of malignant neoplasm of bladder; Z95.5 Presence of coronary angioplasty implant and graft; Z87.891 Personal history of nicotine dependence; Z82.3 Family history of stroke; Z83.3 Family history of diabetes mellitus; Z82.49 Family history of ischemic heart disease and other diseases of the circulatory system; Z88.8 Allergy status to other drugs, medicaments and biological substances; Z79.82 Long term (current) use of aspirin; Z79.1 Long term (current) use of non-steroidal anti-inflammatories (NSAID); Z79.01 Long term (current) use of anticoagulants; Z79.84 Long term (current) use of oral hypoglycemic drugs; Z79.4 Long term (current) use of insulin; Z79.899 Other long term (current) drug therapy
CPT/HCPCS: 36590; J2250; J0690; J2001; J3010; J2704; J1644

== ENCOUNTER 2022-06-24 15:13 | Inpatient (IN) | payer MEDICARE ==
[2022-06-24] MEDS ORDERED: SODIUM CHLORIDE 0.9% 1,000 ML IV STA ×3 (15:48→17:10)
[2022-06-24] MEDS ORDERED: MORPHINE SULFATE 4 MG/ML SYRINGE IV STA (15:48)
[2022-06-24] MEDS ORDERED: ONDANSETRON 4 MG/2 ML VIAL IVP STA (15:48)
[2022-06-24] MEDS ORDERED: KETOROLAC 15 MG/ML 1 ML VIAL IVP STA (15:49)
[2022-06-24] MEDS ORDERED: ACETAMINOPHEN IV (For NPO) 1,000 MG in EMPTY BAG 1 BAG IVPB STA (15:49)
--- NOTE | 2022-06-24 15:49 | ED ---
Weakness HPI - General Chief complaint: Arrhythmia/Palpitations Stated complaint: Weakness Time Seen by Provider: 06/24/22 15:16 Source: patient, EMS, RN notes reviewed, old records reviewed Mode of arrival: EMS Limitations: no limitations - History of Present Illness Initial comments: This is a 66-year-old male to the emergency department for evaluation. Patient comes in significant distress tachycardic lightheaded dizzy and generalized lower extremity swelling. Back pain with nausea vomiting and diarrhea for the last 4 days, increasing. Patient feels weak lightheaded dizzy and feels like he has palpitations. Patient feels significantly diaphoretic, sweaty, and like he may pass out. Patient has multiple medical issues with chronic comorbid medical conditions. MD Complaint: generalized weakness, lack of energy -: days(s) Location: generalized Severity: severe Severity scale (1-10): 9 Consistency: constant Improves with: none Worsens with: none Context: recent illness, history of similar Associated Symptoms: confusion, diaphoresis, loss of appetite, nausea/vomiting - Related Data Home Medications Medication Instructions Recorded Confirmed Atorvastatin [Lipitor] 40 mg PO DAILY 11/07/13 06/24/22 lisinopriL [Zestril] 2.5 mg PO DAILY 07/24/14 06/24/22 Pentoxifylline [TRENtal] 400 mg PO TID 02/09/18 06/24/22 Gabapentin [Neurontin] 300 mg PO QID PRN 12/10/19 06/24/22 Ibuprofen 200 mg PO BID 12/10/19 06/24/22 Rivaroxaban [Xarelto] 20 mg PO DAILY 12/10/19 06/24/22 carvediloL [Coreg] 12.5 mg PO BID 12/10/19 06/24/22 Insulin NPH Hum/Reg Insulin Hm 50 unit SQ BID 12/12/19 06/24/22 [Novolin 70-30 Flexpen] Loratadine 10 mg PO DAILY 03/11/22 06/24/22 Acetaminophen Tab [Tylenol Tab] 1,000 mg PO Q6HR PRN 06/24/22 06/24/22 Phenazopyridine [Pyridium] 200 mg PO TID PRN 06/24/22 06/24/22 Prevalite 1 scoop PO DAILY 06/24/22 06/24/22 Spironolactone [Aldactone] 12.5 mg PO DAILY 06/24/22 06/24/22 Tamsulosin HCl [Flomax] 0.4 mg PO DAILY 06/24/22 06/24/22 metFORMIN HCL ER [Glucophage XR] 1,000 mg PO BID 06/24/22 06/24/22 oxyBUTYnin chloride [Ditropan XL] 10 mg PO DAILY 06/24/22 06/24/22 Previous Rx's Medication Instructions Recorded Aspirin EC [Ecotrin Low Dose] 81 mg PO DAILY #30 tablet. 10/06/13 Allergies Allergy/AdvReac Type Severity Reaction Status Date / Time empagliflozin AdvReac Unknown joints ache Verified 06/24/22 18:04 [From Jardiance] Review of Systems ROS Statement: Those systems with pertinent positive or pertinent negative responses have been documented in the HPI. ROS Other: All systems not noted in ROS Statement are negative. Past Medical History Past Medical History: Cancer, Diabetes Mellitus, Deep Vein Thrombosis (DVT), Hyperlipidemia, Hypertension, Myocardial Infarction ([place]), Sleep Apnea/CPAP/BIPAP, Vascular Disorder Additional Past Medical History / Comment(s): HX OF DVT'S 2013 (legs & arm)., PAD, Hx DIABETIC ULCERS, LEFT ANKLE WOUND THAT IS HEALING, HX OF SLEEP APNEA(RES OLVED WITH WT LOSS)., RIGHT AKA , WEARS PROSTHESIS. bladder cancer get injections to his eyes for diabetic retinopathy approx q 6 weeks Last Myocardial Infarction Date:: 2001 History of Any Multi-Drug Resistant Organisms: None Reported Past Surgical History: Bladder Surgery, Heart Catheterization With Stent, Hernia Repair Additional Past Surgical History / Comment(s): right FEMPOP BYPASS by Dr. 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 AMPUTATION 4TH TOES LT FOOT, "BLADDER SCRAPING" X2 AT [facility], URETHRAL STENT PLACMENT AND REMOVAL. amputation revision feb 2021 Past Anesthesia/Blood Transfusion Reactions: No Reported Reaction Additional Past Anesthesia/Blood Transfusion Reaction / Comment(s): PT STATES HE FELT REALLY "POORLY" AFTER ONE OF HIS RECENT SURGERIES AT [facility] Date of Last Stent Placement:: 2001 & 2006 Past Psychological History: No Psychological Hx Reported Smoking Status: Former smoker Past Alcohol Use History: None Reported Past Drug Use History: None Reported - Past Family History Father Family Medical History: CVA/TIA, Diabetes Mellitus, Vascular Disorder Additional Family Medical History / Comment(s): leg amputation, in long-term d/t diabetic cx. Mother Family Medical History: Cancer, Coronary Artery Disease (CAD) Additional Family Medical History / Comment(s): LYMPHOMA Sister(s) Family Medical History: Cancer General Exam General appearance: alert, anxious, lethargic, in distress, obese Head exam: Present: atraumatic, normocephalic, normal inspection Eye exam: Present: normal appearance, PERRL, EOMI. Absent: scleral icterus, conjunctival injection, periorbital swelling ENT exam: Present: normal exam, mucous membranes dry Neck exam: Present: normal inspection. Absent: tenderness, meningismus, lymphadenopathy Respiratory exam: Present: normal lung sounds bilaterally. Absent: respiratory distress, wheezes, rales, rhonchi, stridor Cardiovascular Exam: Present: tachycardia, normal heart sounds. Absent: systolic murmur, diastolic murmur, rubs, gallop, clicks GI/Abdominal exam: Present: soft, normal bowel sounds. Absent: distended, tenderness, guarding, rebound, rigid Extremities exam: Present: normal inspection, full ROM, normal capillary refill. Absent: tenderness, pedal edema, joint swelling, calf tenderness Back exam: Present: normal inspection Neurological exam: Present: alert, oriented X3, CN II-XII intact Psychiatric exam: Present: normal affect, normal mood Skin exam: Present: warm, dry, intact, normal color. Absent: rash Course Vital Signs 06/24/22 06/24/22 06/24/22 15:36 15:55 16:00 Temperature 99.6 F Pulse Rate 140 H 137 H 137 H Respiratory 18 30 H 8 L Rate Blood Pressure 105/65 115/83 O2 Sat by Pulse 94 L 98 Oximetry 06/24/22 06/24/22 06/24/22 16:30 17:00 17:30 Temperature Pulse Rate 133 H 123 H 116 H Respiratory 12 Rate Blood Pressure 130/67 O2 Sat by Pulse Oximetry 06/24/22 06/24/22 06/24/22 18:00 18:30 19:00 Temperature Pulse Rate 111 H 103 H 106 H Respiratory 22 24 13 Rate Blood Pressure 109/70 O2 Sat by Pulse 100 Oximetry 06/24/22 06/24/22 06/24/22 19:30 20:00 20:30 Temperature Pulse Rate 106 H 109 H 105 H Respiratory 15 18 18 Rate Blood Pressure 109/70 94/59 92/58 O2 Sat by Pulse 97 97 96 Oximetry 06/24/22 06/24/22 06/24/22 21:00 21:14 22:00 Temperature Pulse Rate 103 H 103 H 104 H Respiratory 20 22 11 L Rate Blood Pressure 92/58 115/86 115/86 O2 Sat by Pulse Oximetry 06/25/22 06/25/22 06/25/22 00:00 01:00 02:36 Temperature Pulse Rate 111 H 118 H 128 H Respiratory 14 16 35 H Rate Blood Pressure 103/42 119/62 158/69 O2 Sat by Pulse 97 100 94 L Oximetry 06/25/22 06/25/22 06/25/22 02:38 02:40 02:47 Temperature Pulse Rate 128 H 128 H 126 H Respiratory 35 H 36 H 34 H Rate Blood Pressure 158/69 158/69 158/69 O2 Sat by Pulse 94 L 96 95 Oximetry 06/25/22 06/25/22 06/25/22 02:48 02:51 02:52 Temperature Pulse Rate 126 H 125 H 125 H Respiratory 34 H 34 H 34 H Rate Blood Pressure 158/69 158/69 158/69 O2 Sat by Pulse 95 92 L 92 L Oximetry 06/25/22 06/25/22 06/25/22 02:56 02:58 03:02 Temperature Pulse Rate 126 H 126 H 129 H Respiratory 37 H 37 H 39 H Rate Blood Pressure 158/69 158/69 165/69 O2 Sat by Pulse 98 98 96 Oximetry 06/25/22 06/25/22 06/25/22 03:04 03:30 03:50 Temperature Pulse Rate 129 H 130 H Respiratory 28 H 39 H 46 H Rate Blood Pressure 165/69 165/69 O2 Sat by Pulse 96 93 L Oximetry 06/25/22 06/25/22 06/25/22 04:00 04:01 04:15 Temperature 103 F H Pulse Rate 129 H 126 H Respiratory 42 H 42 H Rate Blood Pressure 160/98 164/81 O2 Sat by Pulse 92 L 97 Oximetry 06/25/22 06/25/22 06/25/22 05:00 05:15 05:30 Temperature 101.7 F H Pulse Rate 123 H 125 H 123 H Respiratory 20 19 20 Rate Blood Pressure 109/65 151/73 109/65 O2 Sat by Pulse 96 95 95 Oximetry 06/25/22 06/25/22 06/25/22 05:45 06:00 06:21 Temperature 98.5 F Pulse Rate 115 H 117 H Respiratory 20 20 Rate Blood Pressure 116/65 117/73 O2 Sat by Pulse 92 L 66 L Oximetry 06/25/22 06/25/22 06/25/22 07:00 07:39 08:00 Temperature 98.3 F 98.2 F Pulse Rate 123 H 128 H Respiratory 20 20 Rate Blood Pressure 127/62 127/62 O2 Sat by Pulse 100 100 100 Oximetry 06/25/22 06/25/22 06/25/22 08:30 08:50 09:26 Temperature 100.8 F H 105.9 F H 104 F H Pulse Rate 134 H Respiratory 40 H Rate Blood Pressure O2 Sat by Pulse 98 Oximetry 06/25/22 06/25/22 06/25/22 10:41 12:02 12:37 Temperature 101.3 F H 98.4 F 100.9 F H Pulse Rate 121 H Respiratory 28 H Rate Blood Pressure 100/79 O2 Sat by Pulse 98 Oximetry - Reevaluation(s) Reevaluation #1: 06/24/22 19:10 Medical record is reviewed Reevaluation #2: 06/24/22 19:10 Patient has significant improvement here in the ER Reevaluation #3: 06/24/22 19:10 Patient informed results questions answered Reevaluation #4: 06/24/22 19:10 Was pt. sent in by a medical professional or institution? @ -no Did you speak to anyone other than the patient for history? @ -no Did you review nursing and triage notes? @ -agree Were old charts reviewed? @ -no Differential Diagnosis? @ -prior EKG interpreted by me (3pts min.)? @ -yes X-rays interpreted by me (1pt min.)? @ -yes CT interpreted by me (1pt min.)? @ -no U/S interpreted by me (1pt. min.)? @ -no What testing was considered but not performed? (CT, X-rays, U/S, labs)? Why? @ -no What meds were considered but not given? Why? @ -no Did you discuss the management of the patient with other professionals? @ -no Did you reconcile home meds? @ -yes Was smoking cessation discussed for >3mins.? @ -no Was critical care preformed (if so, how long)? @ -yes 31 Were there social determinants of health that impacted care today? How? (Homelessness, low income, unemployed, alcoholism, drug addiction, transportation, low edu. Level, literacy, decrease access to med. care, fpc, rehab)? @ -no Was there de-escalation of care discussed even if they declined? (Discuss DNR or withdrawal of care, Hospice)? @ -no What co-morbidities impacted this encounter? (DM, HTN, Smoking, COPD, CAD, Cancer, CVA, Hep., AIDS, mental health diagnosis, sleep apnea, morbid obesity)? @ -all Was patient admitted / discharged? @ -admit Undiagnosed new problem with uncertain prognosis? @ -no Drug Therapy requiring intensive monitoring for toxicity (Heparin, Nitro, Insulin, Cardizem)? @ -no Were any procedures done? @ -no Diagnosis/symptom? @ -Lactic acidosis, dehydration, weakness, nausea vomiting diarrhea Acute, or Chronic, or Acute on Chronic? @ -Acute Uncomplicated (without systemic symptoms) or Complicated (systemic symptoms)? @ -complicated Side effects of treatment? @ -no Exacerbation, Progression, or Severe Exacerbation] @ -no Poses a threat to life or bodily function? @ -no Reevaluation #5: 06/24/22 19:10 Differential Weakness: Hypoglycemia, shock, sepsis, hyponatremia, anemia, infection, [place], ETOH, adverse medicine reaction, overdose, stroke, this is not meant to be an all-inclusive list. - Consultations Consultation #1: spoke beth lozada for admission EKG Findings - EKG Comments: EKG Findings:: EKG shows atrial tachycardia rate 140 PRR 143 QRS 106 QTc 378 Medical Decision Making - Medical Decision Making 66 male to the emergency department for evaluation patient presents today to the ER for evaluation regards to weakness, tachycardia, nausea vomiting and clive rrhea. Patient is significantly dehydrated with significant lactic acidosis. Patient will be admitted for continued supportive care and hydration - Lab Data Result diagrams: 06/26/22 03:50 06/26/22 03:50 Lab Results 06/24/22 06/24/22 06/24/22 Range/Units 16:13 16:13 16:13 WBC 9.0 (3.8-10.6) k/uL RBC 4.54 (4.30-5.90) m/uL Hgb 13.7 (13.0-17.5) gm/dL Hct 40.3 (39.0-53.0) % MCV 88.9 (80.0-100.0) fL MCH 30.2 (25.0-35.0) pg MCHC 33.9 (31.0-37.0) g/dL RDW 17.3 H (11.5-15.5) % Plt Count 210 (150-450) k/uL MPV 8.0 Neutrophils % 86 % Lymphocytes % 7 % Monocytes % 5 % Eosinophils % 1 % Basophils % 1 % Neutrophils # 7.7 (1.3-7.7) k/uL Lymphocytes # 0.6 L (1.0-4.8) k/uL Monocytes # 0.4 (0-1.0) k/uL Eosinophils # 0.1 (0-0.7) k/uL Basophils # 0.1 (0-0.2) k/uL Poikilocytosis Slight Anisocytosis Slight PT 10.6 (9.0-12.0) sec INR 1.0 (<1.2) APTT 17.7 L (22.0-30.0) sec Sodium (137-145) mmol/L Potassium (3.5-5.1) mmol/L Chloride (98-107) mmol/L Carbon Dioxide (22-30) mmol/L Anion Gap mmol/L BUN (9-20) mg/dL Creatinine (0.66-1.25) mg/dL Est GFR (CKD-EPI)AfAm (>60 ml/min/1.73 sqM) Est GFR (CKD-EPI)NonAf (>60 ml/min/1.73 sqM) Glucose (74-99) mg/dL Lactic Ac Sepsis Rflx Plasma Lactic Acid Jeremiah (0.7-2.0) mmol/L Calcium (8.4-10.2) mg/dL Phosphorus (2.5-4.5) mg/dL Magnesium (1.6-2.3) mg/dL Total Bilirubin (0.2-1.3) mg/dL AST (17-59) U/L ALT (4-49) U/L Alkaline Phosphatase (38-126) U/L CK-MB (CK-2) (0.0-2.4) ng/mL Troponin I (0.000-0.034) ng/mL NT-Pro-B Natriuret Pep pg/mL Total Protein (6.3-8.2) g/dL Albumin (3.5-5.0) g/dL Urine Color Yellow Urine Appearance Cloudy (Clear) Urine pH 5.0 (5.0-8.0) Ur Specific Shiner 1.022 (1.001-1.035) Urine Protein 1+ H (Negative) Urine Glucose (UA) Trace H (Negative) Urine Ketones Trace H (Negative) Urine Blood Negative (Negative) Urine Nitrite Negative (Negative) Urine Bilirubin Negative (Negative) Urine Urobilinogen 2.0 (<2.0) mg/dL Ur Leukocyte Esterase Negative (Negative) Urine RBC 1 (0-5) /hpf Urine WBC 2 (0-5) /hpf Ur Squamous Epith Cells <1 (0-4) /hpf Hyaline Casts 9 H (0-2) /lpf Urine Mucus Rare H (None) /hpf 06/24/22 06/24/22 06/24/22 Range/Units 16:13 16:13 16:13 WBC (3.8-10.6) k/uL RBC (4.30-5.90) m/uL Hgb (13.0-17.5) gm/dL Hct (39.0-53.0) % MCV (80.0-100.0) fL MCH (25.0-35.0) pg MCHC (31.0-37.0) g/dL RDW (11.5-15.5) % Plt Count (150-450) k/uL MPV Neutrophils % % Lymphocytes % % Monocytes % % Eosinophils % % Basophils % % Neutrophils # (1.3-7.7) k/uL Lymphocytes # (1.0-4.8) k/uL Monocytes # (0-1.0) k/uL Eosinophils # (0-0.7) k/uL Basophils # (0-0.2) k/uL Poikilocytosis Anisocytosis PT (9.0-12.0) sec INR (<1.2) APTT (22.0-30.0) sec Sodium 140 (137-145) mmol/L Potassium 4.7 (3.5-5.1) mmol/L Chloride 101 (98-107) mmol/L Carbon Dioxide 19 L (22-30) mmol/L Anion Gap 20 mmol/L BUN 23 H (9-20) mg/dL Creatinine 1.21 (0.66-1.25) mg/dL Est GFR (CKD-EPI)AfAm 71 (>60 ml/min/1.73 sqM) Est GFR (CKD-EPI)NonAf 62 (>60 ml/min/1.73 sqM) Glucose 282 H (74-99) mg/dL Lactic Ac Sepsis Rflx Plasma Lactic Acid Jeremiah 5.4 H* (0.7-2.0) mmol/L Calcium 9.6 (8.4-10.2) mg/dL Phosphorus 2.0 L (2.5-4.5) mg/dL Magnesium 1.4 L (1.6-2.3) mg/dL Total Bilirubin 0.9 (0.2-1.3) mg/dL AST 39 (17-59) U/L ALT 26 (4-49) U/L Alkaline Phosphatase 81 (38-126) U/L CK-MB (CK-2) (0.0-2.4) ng/mL Troponin I 0.042 H* (0.000-0.034) ng/mL NT-Pro-B Natriuret Pep pg/mL Total Protein 7.8 (6.3-8.2) g/dL Albumin 4.7 (3.5-5.0) g/dL Urine Color Urine Appearance (Clear) Urine pH (5.0-8.0) Ur Specific Shiner (1.001-1.035) Urine Protein (Negative) Urine Glucose (UA) (Negative) Urine Ketones (Negative) Urine Blood (Negative) Urine Nitrite (Negative) Urine Bilirubin (Negative) Urine Urobilinogen (<2.0) mg/dL Ur Leukocyte Esterase (Negative) Urine RBC (0-5) /hpf Urine WBC (0-5) /hpf Ur Squamous Epith Cells (0-4) /hpf Hyaline Casts (0-2) /lpf Urine Mucus (None) /hpf 06/24/22 06/24/22 06/24/22 Range/Units 16:13 17:07 17:35 WBC (3.8-10.6) k/uL RBC (4.30-5.90) m/uL Hgb (13.0-17.5) gm/dL Hct (39.0-53.0) % MCV (80.0-100.0) fL MCH (25.0-35.0) pg MCHC (31.0-37.0) g/dL RDW (11.5-15.5) % Plt Count (150-450) k/uL MPV Neutrophils % % Lymphocytes % % Monocytes % % Eosinophils % % Basophils % % Neutrophils # (1.3-7.7) k/uL Lymphocytes # (1.0-4.8) k/uL Monocytes # (0-1.0) k/uL Eosinophils # (0-0.7) k/uL Basophils # (0-0.2) k/uL Poikilocytosis Anisocytosis PT (9.0-12.0) sec INR (<1.2) APTT (22.0-30.0) sec Sodium (137-145) mmol/L Potassium (3.5-5.1) mmol/L Chloride (98-107) mmol/L Carbon Dioxide (22-30) mmol/L Anion Gap mmol/L BUN (9-20) mg/dL Creatinine (0.66-1.25) mg/dL Est GFR (CKD-EPI)AfAm (>60 ml/min/1.73 sqM) Est GFR (CKD-EPI)NonAf (>60 ml/min/1.73 sqM) Glucose (74-99) mg/dL Lactic Ac Sepsis Rflx Y Plasma Lactic Acid Jeremiah (0.7-2.0) mmol/L Calcium (8.4-10.2) mg/dL Phosphorus (2.5-4.5) mg/dL Magnesium (1.6-2.3) mg/dL Total Bilirubin (0.2-1.3) mg/dL AST (17-59) U/L ALT (4-49) U/L Alkaline Phosphatase (38-126) U/L CK-MB (CK-2) 2.4 (0.0-2.4) ng/mL Troponin I (0.000-0.034) ng/mL NT-Pro-B Natriuret Pep 251 pg/mL Total Protein (6.3-8.2) g/dL Albumin (3.5-5.0) g/dL Urine Color Urine Appearance (Clear) Urine pH (5.0-8.0) Ur Specific Shiner (1.001-1.035) Urine Protein (Negative) Urine Glucose (UA) (Negative) Urine Ketones (Negative) Urine Blood (Negative) Urine Nitrite (Negative) Urine Bilirubin (Negative) Urine Urobilinogen (<2.0) mg/dL Ur Leukocyte Esterase (Negative) Urine RBC (0-5) /hpf Urine WBC (0-5) /hpf Ur Squamous Epith Cells (0-4) /hpf Hyaline Casts (0-2) /lpf Urine Mucus (None) /hpf - Radiology Data Radiology results: report reviewed (Chest x-ray shows pulmonary edema), image reviewed Critical Care Time Critical Care Time: Yes Total Critical Care Time: 31 Disposition Clinical Impression: Palpitations, Tachycardia, Nausea and vomiting, Diarrhea, Lactic acidosis, Dehydration, Weakness, Colitis Disposition: ADMITTED IP TO THIS [facility] Condition: Fair Is patient prescribed a controlled substance at d/c from ED?: No Time of Disposition: 19:00
[2022-06-24 16:51] LABS: Albumin 4.7 g/dL (3.5-5.0); Calcium 9.6 mg/dL (8.4-10.2); Magnesium 1.4 mg/dL (1.6-2.3); Potassium 4.7 mmol/L (3.5-5.1); Total Bilirubin 0.9 mg/dL (0.2-1.3); Total Protein 7.8 g/dL (6.3-8.2)
[2022-06-24 17:05] LABS: Prothrombin Time 10.6 sec (9.0-12.0)
[2022-06-24 17:10] LABS: Anisocytosis Slight; Basophils # (A) 0.1 k/uL (0-0.2); Basophils % (A) 1 %; Eosinophils # (A) 0.1 k/uL (0-0.7); Eosinophils % (A) 1 %; HCT 40.3 % (39.0-53.0); HGB 13.7 gm/dL (13.0-17.5); Lymphocytes # (A) 0.6 k/uL (1.0-4.8); Lymphocytes % (A) 7 %; MCH 30.2 pg (25.0-35.0); MCHC 33.9 g/dL (31.0-37.0); MCV 88.9 fL (80.0-100.0); Monocytes # (A) 0.4 k/uL (0-1.0); Monocytes % (A) 5 %; Neutrophils # (A) 7.7 k/uL (1.3-7.7); Neutrophils % (A) 86 %; Platelet Count 210 k/uL (150-450); Poikilocytosis Slight; RBC 4.54 m/uL (4.30-5.90); RDW 17.3 % (11.5-15.5)
[2022-06-24 17:11] LABS: Partial Thromboplastin Time 17.7 sec (22.0-30.0)
--- NOTE | 2022-06-24 17:14 | XR ---
EXAMINATION: XR chest 1V portable DATE AND TIME: 06/24/2022 4:54 PM CLINICAL INDICATION: PHH; cp. TECHNIQUE: AP upright portable COMPARISON: 03/16/2022 FINDINGS: The lungs are hypoinflated compared to the prior study. There is silhouetting of the pulmonary vascul ature of the mid and lower lung zones bilaterally reticular pattern of increased attenuation, finding s which can correlate with a clinical diagnosis of interstitial phase pulmonary edema. In addition, t here are bibasilar ill-defined added opacities which are consistent with atelectasis; concurrent infe ction can only be excluded on clinical grounds. The pleural spaces are negative. The cardiac silhouette is not enlarged. The skeletal structures and soft tissues are negative for acute findings. IMPRESSION: Pulmonary findings as discussed.
[2022-06-24] MEDS ORDERED: NALOXONE 0.4 MG/ML 1 ML VIAL IV PRN (19:02)
[2022-06-24] MEDS ORDERED: ACETAMINOPHEN TAB 325 MG TAB PO PRN (19:02)
[2022-06-24] MEDS ORDERED: ONDANSETRON 4 MG/2 ML VIAL IVP PRN (19:02)
[2022-06-24 19:22] LABS: Appearance,Urine Cloudy (Clear); Bilirubin,Urine Negative (Negative); Blood,Urine Negative (Negative); Color,Urine Yellow; Glucose,Urine (UA) Trace (Negative); Hyaline Casts,Urine 9 /lpf (0-2); Ketones,Urine Trace (Negative); Leukocyte Esterase,Urine Negative (Negative); Mucus,Urine Rare /hpf; Nitrite,Urine Negative (Negative); Protein,Urine 1+ (Negative); RBC,Urine 1 /hpf (0-5); Specific Gravity,Urine 1.022 (1.001-1.035); Squamous Epithelial Cell,Urine <1 /hpf (0-4); WBC,Urine 2 /hpf (0-5)
[2022-06-24] MEDS: SODIUM CHLORIDE 0.9% 1,000 ML IV SCH (19:24)
[2022-06-24] MEDS: MORPHINE SULFATE 4 MG/ML SYRINGE IV PRN (23:58)
[2022-06-25] MEDS: SODIUM CHLORIDE 0.9% 1,000 ML IV SCH ×3 (02:36→10:54)
[2022-06-25 03:36] LABS: Albumin 3.7 g/dL (3.5-5.0); Calcium 7.6 mg/dL (8.4-10.2); Phosphorus 2.2 mg/dL (2.5-4.5); Potassium 5.3 mmol/L (3.5-5.1); Total Bilirubin 0.8 mg/dL (0.2-1.3); Total Protein 6.2 g/dL (6.3-8.2)
[2022-06-25 03:38] LABS: Glucose,Whole Blood 208 mg/dL (70-110)
[2022-06-25] MEDS: MAGNESIUM SULFATE-D5W PMX 1 GM in DEXTROSE/WATER 1 100ML.BAG IVPB SCH ×6 (04:04→23:00)
[2022-06-25 04:05] LABS: ABG Base Excess -5.2 mmol/L; ABG HCO3 19 mmol/L (21-25); ABG Oxygen Saturation 92.8 % (94-97); ABG PCO2 31 mmHg (35-45); ABG PH 7.41 (7.35-7.45); ABG PO2 60 mmHg (83-108); ABG TCO2 20 mmol/L (19-24); Allen Test Performed? Yes
[2022-06-25] MEDS: ACETAMINOPHEN IV (For NPO) 1,000 MG in EMPTY BAG 1 BAG IVPB PRN ×3 (04:05→20:42)
[2022-06-25 04:22] LABS: Anisocytosis Slight; Basophils % (A) 0 %; Eosinophils % (A) 0 %; HCT 34.7 % (39.0-53.0); HGB 11.5 gm/dL (13.0-17.5); Lymphocytes # (A) 0.3 k/uL (1.0-4.8); Lymphocytes % (A) 6 %; MCH 30.3 pg (25.0-35.0); MCV 91.8 fL (80.0-100.0); Mean Platelet Volume 8.1; Monocytes # (A) 0.4 k/uL (0-1.0); Monocytes % (A) 6 %; Neutrophils # (A) 4.8 k/uL (1.3-7.7); Neutrophils % (A) 85 %; Platelet Count 129 k/uL (150-450); Poikilocytosis Slight; RBC 3.78 m/uL (4.30-5.90); RDW 17.4 % (11.5-15.5); WBC 5.6 k/uL (3.8-10.6)
--- NOTE | 2022-06-25 04:25 | XR ---
EXAM: XR Chest, 1 View CLINICAL HISTORY: ITS.REASON XR Reason: Resp distress TECHNIQUE: Frontal view of the chest. COMPARISON: 06/24/2022 FINDINGS: Lungs: Mild bilateral perihilar reticular opacities. No consolidation. Pleural space: Unremarkable. No pneumothorax. Heart: Borderline cardiomegaly. Mediastinum: Unremarkable. Bones/joints: Unremarkable. IMPRESSION: 1. Improved aeration and decreased bibasilar atelectasis compared to prior study. 2. Unchanged mild bilateral perihilar reticular opacities compatible with interstitial pulmonary edema.
--- NOTE | 2022-06-25 04:56 | CT ---
EXAM: CT Head Without Intravenous Contrast CLINICAL HISTORY: AMS TECHNIQUE: Axial computed tomography images of the head/brain without intravenous contrast. CTDI is 47.1 mGy and DLP is 1339.4 mGy-cm. This CT exam was performed using one or more of the following dose reduction techniques: automated exposure control, adjustment of the mA and/or kV according to patient size, and/or use of iterative reconstruction technique. COMPARISON: No relevant prior studies available. FINDINGS: Brain: No acute stroke. No hemorrhage. No abnormal extra-axial fluid collection. No significant white matter disease. Ventricles: No hydrocephalus. No midline shift. Bones/joints: Unremarkable. No acute fracture. Soft tissues: Unremarkable. Sinuses: Unremarkable as visualized. No acute sinusitis. IMPRESSION: No acute abnormality.
--- NOTE | 2022-06-25 05:19 | CT ---
EXAM: CT Abdomen and Pelvis Without Intravenous Contrast CLINICAL HISTORY: Diarrhea with fever TECHNIQUE: Axial computed tomography images of the abdomen and pelvis without intravenous contrast. CTDI is 50 mGy and DLP is 3246 mGy-cm. This CT exam was performed using one or more of the following dose reduction techniques: automated exposure control, adjustment of the mA and/or kV according to patient size, and/or use of iterative reconstruction technique. COMPARISON: 06/21/2022. FINDINGS: Lung bases: Bibasilar atelectasis. Punctate right basilar calcification/granuloma. ABDOMEN: Liver: Unremarkable. Gallbladder and bile ducts: Mildly distended. No calcified stones. No ductal dilation. Pancreas: Unremarkable. No ductal dilation. Spleen: Unremarkable. No splenomegaly. Adrenals: Unremarkable. No mass. Kidneys and ureters: Unremarkable. No obstructing stones. No hydronephrosis. Stomach and bowel: No obstruction or ileus. Sigmoid colon wall thickening. Scattered colonic diverticuli without evidence for diverticulitis. PELVIS: Appendix: No findings to suggest acute appendicitis. Bladder: Partially contracted with marked diffuse wall thickening. No stones. Reproductive: Unremarkable as visualized. ABDOMEN and PELVIS: Intraperitoneal space: No free air. No free fluid. Bones/joints: No acute fracture. Degenerative changes of the spine. Soft tissues: Unremarkable. Vasculature: Redemonstrated distal aortoiliac stents diffuse atherosclerotic allocations. Evaluation limited by lack of intravenous contrast material. No abdominal aortic aneurysm. Lymph nodes: Unremarkable. No enlarged lymph nodes. IMPRESSION: Sigmoid colon wall thickening consistent with colitis. Scattered colonic diverticuli without focal changes to suggest diverticulitis. Contracted gallbladder with marked thickening consistent with cystitis. Well-distended gallbladder without gallstones. Redemonstrated aortoiliac vascular bypass grafts. Lack of intravenous contrast material limits evaluation.
[2022-06-25] MEDS ORDERED: ACETAMINOPHEN IV (For NPO) 1,000 MG in EMPTY BAG 1 BAG IVPB ONE (09:07)
[2022-06-25 09:19] LABS: Glucose,Whole Blood 191 mg/dL (70-110)
--- NOTE | 2022-06-25 10:15 | P.CRDCN ---
History of Present Illness Consult date: 06/25/22 Consult reason: non-Q-wave DC History of present illness: History of present illness: This is a 66-year-old male patient follows with Dr. Estrada in the office with past medical history of coronary artery disease, ischemic cardiomyopathy, peripheral artery disease status post [id number] amputation and history of DVT, hypertension, dyslipidemia, diabetes mellitus type 2. We have been asked to evaluate the patient for non-ST elevated myocardial infarction. Patient is a very poor historian. According to the ER notes, patient was brought into the hospital due to lightheadedness dizziness edema and tachycardia. Patient also had back pain with nausea vomiting and diarrhea for the past 4 days and worsening. Patient denies having any chest pain. Patient was given 3 L of IV fluid, morphine, magnesium IV, IV Tylenol and Toradol in the emergency center. Patient is seen today in the emergency center waiting for a bed on the cardiac stepdown unit. Patient has been febrile with a rectal temperature of 105.9, heart rate in the 120s 130s and blood pressure 127/62, pulse ox 98% on 6 L nasal cannula. EKG sinus tachycardia 109-138 bpm, multiple EKGs reviewed Chest x-ray: Correlate for interstitial phase pulmonary edema Repeat chest x-ray reveals improved aeration and decreased bibasilar atelectasis. Unchanged mild bilateral perihilar reticular opacities compatible with interstitial pulmonary edema CAT scan of the brain revealed no acute abnormalities CAT scan of the abdomen and pelvis revealed sigmoid colon thickening consistent with colitis. Scattered colonic diverticuli without diverticulitis. Contracted gallbladder with marked thickening consistent with cystitis. Well distended gallbladder without stones. Redemonstrated aortoiliac vascular bypass grafts. WBC 5.6, hemoglobin 11.5, platelet count 129. D-dimer 3.97. INR 1. Sodium 133, potassium 5.3, CO2 17, BUN 23 creatinine 1.25. Lactic acid 5.4 now 2.8. Troponin 0.042. ProBNP 251. Recent lipid panel revealed HDL 35, LDL 56. Home cardiac medications: Aspirin 81 mg daily, atorvastatin 40 mg daily, Coreg 12.5 mg twice daily, lisinopril 2.5 mg daily, Xarelto 20 mg daily, Aldactone 12.5 mg daily Cardiac catheterization 02/2018 revealed chronic total occlusion of the mid RCA and mid left circumflex. Mild disease involving the LAD. Echocardiogram 01/2021: EF 25%, mild TR, mild MR Review Of Systems: At the time of my evaluation: Constitutional: Documented fever, reports weakness, reports fatigue noted lethargy. EENT: No headache. Reports dizziness. Lungs: Reports shortness of breath, cough, no sputum production. No wheezing. Cardiovascular: No chest pain, + lower extremity edema. Reports lightheadedness or dizziness. Abdominal: Reported abdominal pain. Reported nausea, vomiting, diarrhea. Musculoskeletal: + muscle weakness. Integumentary: + wounds. Neurologic: No aphasia. No facial droop. Noted change in mentation. Physical examination: Gen: This is a 66-year-old male. He is resting on the ER stretcher, lethargic, no acute respiratory distress noted VS: reviewed HEENT: Head is atraumatic, normocephalic. Pupils equal, round. Sclerae is anicteric. NECK: Supple. No JVD. LUNGS: Clear to auscultation. No wheezes or rhonchi. No intercostal retractions. HEART: Regular rate and rhythm. No murmur. ABDOMEN: Obese, Cutler catheter in place. EXTREMITIES: + pedal edema. Right [id number] amputation, amputation fourth toe left foot, chronic wound to the left medial ankle. NEUROLOGICAL: Patient is awake. Assessment: Sepsis Thrombocytopenia Lactic acidosis Nausea vomiting diarrhea Sinus tachycardia Elevated troponin secondary to sepsis, tachycardia Coronary artery disease Ischemic cardiomyopathy Hypertension Hyperlipidemia History of DVT Peripheral artery disease status post amputations Chronic wound to the left ankle Plan: Continue patient's home cardiac medications Resume patient's home cardiac medications Obtain 2-D echocardiogram and Doppler study to assess cardiac structure and function Further recommendations to follow based upon clinical course Thank you kindly for this consultation. Nurse practitioner note has been reviewed, I agree with documented findings and plan of care. Patient was seen and examined. Past Medical History Past Medical History: Cancer, Diabetes Mellitus, Deep Vein Thrombosis (DVT), Hyperlipidemia, Hypertension, Myocardial Infarction (DC), Sleep Apnea/CPAP/BIPAP, Vascular Disorder Additional Past Medical History / Comment(s): HX OF DVT'S 2013 (legs & arm)., PAD, Hx DIABETIC ULCERS, LEFT ANKLE WOUND THAT IS HEALING, HX OF SLEEP APNEA(RESOLVED WITH WT LOSS)., RIGHT AKA , WEARS PROSTHESIS. bladder cancer get injections to his eyes for diabetic retinopathy approx q 6 weeks Last Myocardial Infarction Date:: 2001 History of Any Multi-Drug Resistant Organisms: None Reported Past Surgical History: Bladder Surgery, Heart Catheterization With Stent, Hernia Repair Additional Past Surgical History / Comment(s): right FEMPOP BYPASS by Dr. Orozco on 11/15/13, STENTS TO MARIANELA GROINS DONE AT [facility] in 2006, RIGHT ABOVE KNEE AMPUTATION 11/2013. AMPUTATION 4TH TOES LT FOOT, "BLADDER SCRAPING" X2 AT [facility], URETHRAL STENT PLACMENT AND REMOVAL. amputation revision feb 2021 Past Anesthesia/Blood Transfusion Reactions: No Reported Reaction Additional Past Anesthesia/Blood Transfusion Reaction / Comment(s): PT STATES HE FELT REALLY "POORLY" AFTER ONE OF HIS RECENT SURGERIES AT [facility] Date of Last Stent Placement:: 2001 & 2006 Past Psychological History: No Psychological Hx Reported Smoking Status: Former smoker Past Alcohol Use History: None Reported Past Drug Use History: None Reported - Past Family History Father Family Medical History: CVA/TIA, Diabetes Mellitus, Vascular Disorder Additional Family Medical History / Comment(s): leg amputation, in longterm d/t diabetic cx. Mother Family Medical History: Cancer, Coronary Artery Disease (CAD) Additional Family Medical History / Comment(s): LYMPHOMA Sister(s) Family Medical History: Cancer Medications and Allergies Home Medications Medication Instructions Recorded Confirmed Type Aspirin EC [Ecotrin Low Dose] 81 mg PO DAILY #30 tablet. 10/06/13 06/24/22 Rx Atorvastatin [Lipitor] 40 mg PO DAILY 11/07/13 06/24/22 History lisinopriL [Zestril] 2.5 mg PO DAILY 07/24/14 06/24/22 History Pentoxifylline [TRENtal] 400 mg PO TID 02/09/18 06/24/22 History Gabapentin [Neurontin] 300 mg PO QID PRN 12/10/19 06/24/22 History Ibuprofen 200 mg PO BID 12/10/19 06/24/22 History Rivaroxaban [Xarelto] 20 mg PO DAILY 12/10/19 06/24/22 History carvediloL [Coreg] 12.5 mg PO BID 12/10/19 06/24/22 History Insulin NPH Hum/Reg Insulin Hm 50 unit SQ BID 12/12/19 06/24/22 History [Novolin 70-30 Flexpen] Loratadine 10 mg PO DAILY 03/11/22 06/24/22 History Acetaminophen Tab [Tylenol Tab] 1,000 mg PO Q6HR PRN 06/24/22 06/24/22 History Oxybutynin Chloride [Ditropan XL] 10 mg PO DAILY 06/24/22 06/24/22 History Phenazopyridine [Pyridium] 200 mg PO TID PRN 06/24/22 06/24/22 History Prevalite 1 scoop PO DAILY 06/24/22 06/24/22 History Spironolactone [Aldactone] 12.5 mg PO DAILY 06/24/22 06/24/22 History Tamsulosin HCl [Flomax] 0.4 mg PO DAILY 06/24/22 06/24/22 History metFORMIN HCL ER [Glucophage XR] 1,000 mg PO BID 06/24/22 06/24/22 History Allergies Allergy/AdvReac Type Severity Reaction Status Date / Time empagliflozin AdvReac Unknown joints ache Verified 06/24/22 18:04 [From Jardiance] Physical Exam Vitals: Vital Signs Temp Pulse Resp BP Pulse Ox 06/25/22 06:21 98.5 F 06/25/22 06:00 117 H 20 117/73 66 L 06/25/22 05:45 115 H 20 116/65 92 L 06/25/22 05:30 123 H 20 109/65 95 06/25/22 05:15 125 H 19 151/73 95 06/25/22 05:00 101.7 F H 123 H 20 109/65 96 06/25/22 04:15 126 H 42 H 164/81 97 06/25/22 04:01 103 F H 06/25/22 04:00 129 H 42 H 160/98 92 L 06/25/22 03:50 46 H 06/25/22 03:30 130 H 39 H 165/69 93 L 06/25/22 03:04 129 H 28 H 165/69 96 06/25/22 03:02 129 H 39 H 165/69 96 06/25/22 02:58 126 H 37 H 158/69 98 06/25/22 02:56 126 H 37 H 158/69 98 06/25/22 02:52 125 H 34 H 158/69 92 L 06/25/22 02:51 125 H 34 H 158/69 92 L 06/25/22 02:48 126 H 34 H 158/69 95 06/25/22 02:47 126 H 34 H 158/69 95 06/25/22 02:40 128 H 36 H 158/69 96 06/25/22 02:38 128 H 35 H 158/69 94 L 06/25/22 02:36 128 H 35 H 158/69 94 L 06/25/22 01:00 118 H 16 119/62 100 06/25/22 00:00 111 H 14 103/42 97 06/24/22 22:00 104 H 11 L 115/86 06/24/22 21:14 103 H 22 115/86 06/24/22 21:00 103 H 20 92/58 06/24/22 20:30 105 H 18 92/58 96 06/24/22 20:00 109 H 18 94/59 97 06/24/22 19:30 106 H 15 109/70 97 06/24/22 19:00 106 H 13 109/70 100 06/24/22 18:30 103 H 24 06/24/22 18:00 111 H 22 06/24/22 17:30 116 H 06/24/22 17:00 123 H 06/24/22 16:30 133 H 12 130/67 06/24/22 16:00 137 H 8 L 115/83 98 06/24/22 15:55 137 H 30 H 06/24/22 15:36 99.6 F 140 H 18 105/65 94 L Intake and Output 06/24/22 06/25/22 06/25/22 22:59 06:59 14:59 Other: Weight 101.151 kg Results 06/25/22 03:03 06/25/22 03:03 Cardiac Enzymes 06/24/22 06/24/22 06/24/22 Range/Units 16:13 16:13 17:35 AST 39 (17-59) U/L CK-MB (CK-2) 2.4 (0.0-2.4) ng/mL Troponin I 0.042 H* (0.000-0.034) ng/mL 06/25/22 Range/Units 03:03 AST 134 H (17-59) U/L CK-MB (CK-2) (0.0-2.4) ng/mL Troponin I (0.000-0.034) ng/mL Coagulation 06/24/22 Range/Units 16:13 PT 10.6 (9.0-12.0) sec APTT 17.7 L (22.0-30.0) sec CBC 06/24/22 06/25/22 Range/Units 16:13 03:03 WBC 9.0 5.6 (3.8-10.6) k/uL RBC 4.54 3.78 L (4.30-5.90) m/uL Hgb 13.7 11.5 L (13.0-17.5) gm/dL Hct 40.3 34.7 L (39.0-53.0) % Plt Count 210 129 L (150-450) k/uL Comprehensive Metabolic Panel 06/24/22 06/25/22 Range/Units 16:13 03:03 Sodium 140 133 L (137-145) mmol/L Potassium 4.7 5.3 H (3.5-5.1) mmol/L Chloride 101 103 (98-107) mmol/L Carbon Dioxide 19 L 17 L (22-30) mmol/L BUN 23 H 23 H (9-20) mg/dL Creatinine 1.21 1.25 (0.66-1.25) mg/dL Glucose 282 H 208 H (74-99) mg/dL Calcium 9.6 7.6 L (8.4-10.2) mg/dL AST 39 134 H (17-59) U/L ALT 26 30 (4-49) U/L Alkaline Phosphatase 81 50 (38-126) U/L Total Protein 7.8 6.2 L (6.3-8.2) g/dL Albumin 4.7 3.7 (3.5-5.0) g/dL Current Medications Generic Name Dose Route Start Last Admin Trade Name Freq PRN Reason Stop Dose Admin Acetaminophen 650 mg 06/24/22 19:02 Acetaminophen Tab 325 Mg Tab PO Q6HR PRN Mild Pain or Fever > 100.5 Sodium Chloride 1,000 mls @ 130 mls/hr 06/24/22 19:15 06/25/22 06:32 Saline 0.9% IV 130 mls/hr .[id number] SHASHI Administration Acetaminophen 1,000 mg/ IV 100 mls @ 400 mls/hr 06/25/22 04:00 06/25/22 04:05 Solution IVPB 06/26/22 04:01 400 mls/hr Q6H PRN Administration Fever >102 Morphine Sulfate 4 mg 06/24/22 19:02 06/24/22 23:58 Morphine Sulfate 4 Mg/Ml Syringe IV 4 mg Q4HR PRN Administration Severe Pain (Scale 7 to 10) Naloxone HCl 0.2 mg 06/24/22 19:02 06/25/22 03:50 Naloxone 0.4 Mg/Ml 1 Ml Vial IV 0.2 mg Q2M PRN Administration Opioid Reversal Ondansetron HCl 4 mg 06/24/22 19:02 Ondansetron 4 Mg/2 Ml Vial IVP Q8HR PRN Nausea And Vomiting Intake and Output 06/24/22 06/25/22 06/25/22 22:59 06:59 14:59 Other: Weight 101.151 kg 06/25/22 03:03 06/25/22 03:03
[2022-06-25] MEDS: PIPERACILLIN-TAZOBACTAM 3.375 GM in SODIUM CHLORIDE 0.9% 100 ML IVPB SCH ×3 (10:53→23:58)
[2022-06-25] MEDS: ATORVASTATIN 40 MG TAB PO SCH (11:38)
[2022-06-25] MEDS: RIVAROXABAN 20 MG TAB PO SCH (11:38)
[2022-06-25] MEDS: MORPHINE SULFATE 4 MG/ML SYRINGE IV PRN (11:39)
--- NOTE | 2022-06-25 12:01 | P.CONS ---
History of Present Illness - Reason for Consult Consult date: 06/25/22 Colitis, febrile, sepsis Requesting physician: Karissa Reyna - Chief Complaint Palpitations, nausea and vomiting - History of Present Illness This is a 66-year-old male with multiple comorbidities who presented to the emergency department yesterday afternoon with complaints of heart racing, dizziness and lightheaded, diaphoresis, back pain nausea and vomiting. Past me dical history includes diabetes mellitus, coronary artery disease, ischemic cardiomyopathy, peripheral arterial disease with chronic wounds with history of hmyma-vsg-mpjz amputation and history of DVTs, hypertension, dyslipidemia, and recent diagnosis of bladder cancer with radiation and chemotherapy which was finished about 6 weeks ago. At this time most of the HPI is obtained from as patient is quite ill appearing. states patient had multiple episodes of vomiting yesterday morning, denied any hematemesis, he then became diaphoretic with complaints of chills and was shaking uncontrollably. Patient's states she did take his temperature but he did not have a fever. She reports that he has chronic diarrhea from his metformin but was recently started on a medication to help with the diarrhea. She states he did have some loose stool yesterday but no more than his normal. She denied any blood in his stool. He had no abdominal pain yesterday at home, however did complain of some abdominal pain yesterday evening in the emergency department and underwent a CAT scan of the abdomen and pelvis without IV contrast that reported sigmoid colon wall thickening consistent with colitis. Scattered colonic diverticuli without focal changes to suggest diverticulitis. Gastroenterology was consulted for colitis. This morning patient was noted to have a max temp of 105.9, he is currently on a cooling blanket. IV antibiotics Flagyl and Zosyn have been ordered. As well as multiple consultants including infectious disease and general surgery. Patient and deny any previous history of colitis. His last colonoscopy was 12/13/[address] Montiel for screening colonoscopy with 2 sigmoid polyps status post polypectomy with recommendation of repeat in 7 years. Currently denying any abdominal pain, he has not had any further nausea or vomiting since he came to the emergency department. Patient appears very ill, weak and lethargic. Workup CAT scan of the abdomen and pelvis without IV contrast that reported sigmoid colon wall thickening consistent with colitis. Scattered colonic diverticuli without focal changes to suggest diverticulitis. Contracted gallbladder with marked thickening consistent with cystitis. Will distended gallbladder without gallstones. Redemonstrated aortoiliac vascular bypass graft. Labs WBC 5.6 hemoglobin 11.5 hematocrit 34 platelet count 129,000 INR 1.0 d-dimer 3.97 sodium 133 potassium 5.3 BUN 23 creatinine 1.25 glucose 208 lactic acid 2.8 magnesium 1.0 total bilirubin 0.8 AST 134 ALT 30 alkaline phosphatase 50 troponin 0.119 Review of Systems REVIEW OF SYSTEMS: CARDIOPULMONARY: No reports of chest pain, however complained of tachycardia. No shortness of breath. Gastrointestinal: No abdominal pain. Nausea and vomiting multiple times yesterday, subsided once he came to the emergency department. None today. No hematemesis, coffee-ground emesis. Chronic loose stools. No rectal bleeding, or melena. GENITOURINARY: No dysuria or hematuria. MUSCULOSKELETAL: Right nuadg-mge-jaez amputation, chronic pain. Left calf pain and swelling. SKIN: No rashes. No jaundice. ENDOCRINE: Fevers and chills.. No excessive weight gain or loss. No polydipsia or polyuria. PSYCHIATRIC: Unremarkable. NEUROLOGY: Dizziness, fatigue. ENT: Vision unremarkable. CONSTITUTIONAL: No recent weight loss. Fever, chills, body aches. Past Medical History Past Medical History: Cancer, Diabetes Mellitus, Deep Vein Thrombosis (DVT), Hyperlipidemia, Hypertension, Myocardial Infarction (MS), Sleep Apnea/CPAP/BIPAP, Vascular Disorder Additional Past Medical History / Comment(s): HX OF DVT'S 2013 (legs & arm)., PAD, Hx DIABETIC ULCERS, LEFT ANKLE WOUND THAT IS HEALING, HX OF SLEEP APNEA(RESOLVED WITH WT LOSS)., RIGHT AKA , WEARS PROSTHESIS. bladder cancer get injections to his eyes for diabetic retinopathy approx q 6 weeks Last Myocardial Infarction Date:: 2001 History of Any Multi-Drug Resistant Organisms: None Reported Past Surgical History: Bladder Surgery, Heart Catheterization With Stent, Hernia Repair Additional Past Surgical History / Comment(s): right FEMPOP BYPASS by Dr. Orozco on 11/15/13, STENTS TO MARIANELA GROINS DONE AT [facility] in 2006, RIGHT ABOVE KNEE AMPUTATION 11/2013. AMPUTATION 4TH TOES LT FOOT, "BLADDER SCRAPING" X2 AT [facility], URETHRAL STENT PLACMENT AND REMOVAL. amputation revision feb 2021 Past Anesthesia/Blood Transfusion Reactions: No Reported Reaction Additional Past Anesthesia/Blood Transfusion Reaction / Comm: PT STATES HE FELT REALLY "POORLY" AFTER ONE OF HIS RECENT SURGERIES AT [facility] Date of Last Stent Placement:: 2001 & 2006 Past Psychological History: No Psychological Hx Reported Smoking Status: Former smoker Past Alcohol Use History: None Reported Past Drug Use History: None Reported - Past Family History Father Family Medical History: CVA/TIA, Diabetes Mellitus, Vascular Disorder Additional Family Medical History / Comment(s): leg amputation, in senior living d/t diabetic cx. Mother Family Medical History: Cancer, Coronary Artery Disease (CAD) Additional Family Medical History / Comment(s): LYMPHOMA Sister(s) Family Medical History: Cancer Medications and Allergies Home Medications Medication Instructions Recorded Confirmed Type Aspirin EC [Ecotrin Low Dose] 81 mg PO DAILY #30 tablet. 10/06/13 06/24/22 Rx Atorvastatin [Lipitor] 40 mg PO DAILY 11/07/13 06/24/22 History lisinopriL [Zestril] 2.5 mg PO DAILY 07/24/14 06/24/22 History Pentoxifylline [TRENtal] 400 mg PO TID 02/09/18 06/24/22 History Gabapentin [Neurontin] 300 mg PO QID PRN 12/10/19 06/24/22 History Ibuprofen 200 mg PO BID 12/10/19 06/24/22 History Rivaroxaban [Xarelto] 20 mg PO DAILY 12/10/19 06/24/22 History carvediloL [Coreg] 12.5 mg PO BID 12/10/19 06/24/22 History Insulin NPH Hum/Reg Insulin Hm 50 unit SQ BID 12/12/19 06/24/22 History [Novolin 70-30 Flexpen] Loratadine 10 mg PO DAILY 03/11/22 06/24/22 History Acetaminophen Tab [Tylenol Tab] 1,000 mg PO Q6HR PRN 06/24/22 06/24/22 History Oxybutynin Chloride [Ditropan XL] 10 mg PO DAILY 06/24/22 06/24/22 History Phenazopyridine [Pyridium] 200 mg PO TID PRN 06/24/22 06/24/22 History Prevalite 1 scoop PO DAILY 06/24/22 06/24/22 History Spironolactone [Aldactone] 12.5 mg PO DAILY 06/24/22 06/24/22 History Tamsulosin HCl [Flomax] 0.4 mg PO DAILY 06/24/22 06/24/22 History metFORMIN HCL ER [Glucophage XR] 1,000 mg PO BID 06/24/22 06/24/22 History Allergies Allergy/AdvReac Type Severity Reaction Status Date / Time empagliflozin AdvReac Unknown joints ache Verified 06/24/22 18:04 [From Jardiance] Physical Exam Vitals: Vital Signs Temp Pulse Resp BP Pulse Ox 06/25/22 10:41 101.3 F H 121 H 28 H 100/79 98 06/25/22 09:26 104 F H 06/25/22 08:50 105.9 F H 134 H 40 H 98 06/25/22 08:30 100.8 F H 06/25/22 08:00 98.2 F 128 H 20 127/62 100 06/25/22 07:39 100 06/25/22 07:00 98.3 F 123 H 20 127/62 100 06/25/22 06:21 98.5 F 06/25/22 06:00 117 H 20 117/73 66 L 06/25/22 05:45 115 H 20 116/65 92 L 06/25/22 05:30 123 H 20 109/65 95 06/25/22 05:15 125 H 19 151/73 95 06/25/22 05:00 101.7 F H 123 H 20 109/65 96 06/25/22 04:15 126 H 42 H 164/81 97 06/25/22 04:01 103 F H 06/25/22 04:00 129 H 42 H 160/98 92 L 06/25/22 03:50 46 H 06/25/22 03:30 130 H 39 H 165/69 93 L 06/25/22 03:04 129 H 28 H 165/69 96 06/25/22 03:02 129 H 39 H 165/69 96 06/25/22 02:58 126 H 37 H 158/69 98 06/25/22 02:56 126 H 37 H 158/69 98 06/25/22 02:52 125 H 34 H 158/69 92 L 06/25/22 02:51 125 H 34 H 158/69 92 L 06/25/22 02:48 126 H 34 H 158/69 95 06/25/22 02:47 126 H 34 H 158/69 95 06/25/22 02:40 128 H 36 H 158/69 96 06/25/22 02:38 128 H 35 H 158/69 94 L 06/25/22 02:36 128 H 35 H 158/69 94 L 06/25/22 01:00 118 H 16 119/62 100 06/25/22 00:00 111 H 14 103/42 97 06/24/22 22:00 104 H 11 L 115/86 06/24/22 21:14 103 H 22 115/86 06/24/22 21:00 103 H 20 92/58 06/24/22 20:30 105 H 18 92/58 96 06/24/22 20:00 109 H 18 94/59 97 06/24/22 19:30 106 H 15 109/70 97 06/24/22 19:00 106 H 13 109/70 100 06/24/22 18:30 103 H 24 06/24/22 18:00 111 H 22 06/24/22 17:30 116 H 06/24/22 17:00 123 H 06/24/22 16:30 133 H 12 130/67 06/24/22 16:00 137 H 8 L 115/83 98 06/24/22 15:55 137 H 30 H 06/24/22 15:36 99.6 F 140 H 18 105/65 94 L Intake and Output 06/24/22 06/25/22 06/25/22 22:59 06:59 14:59 Other: Weight 101.151 kg General appearance: The patient is alert, oriented, appears in no acute distress. HET: Head is normocephalic and atraumatic. Conjunctiva pink. Sclera anicteric. Neck: Supple without lymphadenopathy. Trachea midline. Heart: Regular. Tachycardic. Lungs: Equal expansion. Abdomen: Soft, nontender, nondistended with bowel sounds. No guarding or rigidity. Skin: No rashes. No jaundice. Extremities: Right zhnix-yvg-pvsb amputation. Left lower extremity with edema, venous dermatitis and chronic wound to medial aspect of ankle. Neurological: No focal deficits. Awake and alert. Results CBC & Chem 7: 06/25/22 03:03 06/25/22 03:03 Labs: Abnormal Lab Results - Last 24 Hours (Table) 06/24/22 06/24/22 06/24/22 Range/Units 16:13 16:13 16:13 RBC (4.30-5.90) m/uL Hgb (13.0-17.5) gm/dL Hct (39.0-53.0) % RDW 17.3 H (11.5-15.5) % Plt Count (150-450) k/uL Lymphocytes # 0.6 L (1.0-4.8) k/uL APTT 17.7 L (22.0-30.0) sec D-Dimer (<0.60) mg/L FEU ABG pCO2 (35-45) mmHg ABG pO2 (83-108) mmHg ABG HCO3 (21-25) mmol/L ABG O2 Saturation (94-97) % Sodium (137-145) mmol/L Potassium (3.5-5.1) mmol/L Carbon Dioxide (22-30) mmol/L BUN (9-20) mg/dL Glucose (74-99) mg/dL POC Glucose (mg/dL) (70-110) mg/dL Plasma Lactic Acid Jeremiah (0.7-2.0) mmol/L Calcium (8.4-10.2) mg/dL Phosphorus (2.5-4.5) mg/dL Magnesium (1.6-2.3) mg/dL AST (17-59) U/L Troponin I (0.000-0.034) ng/mL Total Protein (6.3-8.2) g/dL Urine Protein 1+ H (Negative) Urine Glucose (UA) Trace H (Negative) Urine Ketones Trace H (Negative) Hyaline Casts 9 H (0-2) /lpf Urine Mucus Rare H (None) /hpf 06/24/22 06/24/22 06/24/22 Range/Units 16:13 16:13 16:13 RBC (4.30-5.90) m/uL Hgb (13.0-17.5) gm/dL Hct (39.0-53.0) % RDW (11.5-15.5) % Plt Count (150-450) k/uL Lymphocytes # (1.0-4.8) k/uL APTT (22.0-30.0) sec D-Dimer (<0.60) mg/L FEU ABG pCO2 (35-45) mmHg ABG pO2 (83-108) mmHg ABG HCO3 (21-25) mmol/L ABG O2 Saturation (94-97) % Sodium (137-145) mmol/L Potassium (3.5-5.1) mmol/L Carbon Dioxide 19 L (22-30) mmol/L BUN 23 H (9-20) mg/dL Glucose 282 H (74-99) mg/dL POC Glucose (mg/dL) (70-110) mg/dL Plasma Lactic Acid Jeremiah 5.4 H* (0.7-2.0) mmol/L Calcium (8.4-10.2) mg/dL Phosphorus 2.0 L (2.5-4.5) mg/dL Magnesium 1.4 L (1.6-2.3) mg/dL AST (17-59) U/L Troponin I 0.042 H* (0.000-0.034) ng/mL Total Protein (6.3-8.2) g/dL Urine Protein (Negative) Urine Glucose (UA) (Negative) Urine Ketones (Negative) Hyaline Casts (0-2) /lpf Urine Mucus (None) /hpf 06/24/22 06/24/22 06/25/22 Range/Units 19:36 23:05 03:03 RBC 3.78 L (4.30-5.90) m/uL Hgb 11.5 L (13.0-17.5) gm/dL Hct 34.7 L (39.0-53.0) % RDW 17.4 H (11.5-15.5) % Plt Count 129 L (150-450) k/uL Lymphocytes # 0.3 L (1.0-4.8) k/uL APTT (22.0-30.0) sec D-Dimer (<0.60) mg/L FEU ABG pCO2 (35-45) mmHg ABG pO2 (83-108) mmHg ABG HCO3 (21-25) mmol/L ABG O2 Saturation (94-97) % Sodium (137-145) mmol/L Potassium (3.5-5.1) mmol/L Carbon Dioxide (22-30) mmol/L BUN (9-20) mg/dL Glucose (74-99) mg/dL POC Glucose (mg/dL) (70-110) mg/dL Plasma Lactic Acid Jeremiah 3.1 H* 3.8 H* (0.7-2.0) mmol/L Calcium (8.4-10.2) mg/dL Phosphorus (2.5-4.5) mg/dL Magnesium (1.6-2.3) mg/dL AST (17-59) U/L Troponin I (0.000-0.034) ng/mL Total Protein (6.3-8.2) g/dL Urine Protein (Negative) Urine Glucose (UA) (Negative) Urine Ketones (Negative) Hyaline Casts (0-2) /lpf Urine Mucus (None) /hpf 06/25/22 06/25/22 06/25/22 Range/Units 03:03 03:03 03:37 RBC (4.30-5.90) m/uL Hgb (13.0-17.5) gm/dL Hct (39.0-53.0) % RDW (11.5-15.5) % Plt Count (150-450) k/uL Lymphocytes # (1.0-4.8) k/uL APTT (22.0-30.0) sec D-Dimer (<0.60) mg/L FEU ABG pCO2 (35-45) mmHg ABG pO2 (83-108) mmHg ABG HCO3 (21-25) mmol/L ABG O2 Saturation (94-97) % Sodium 133 L (137-145) mmol/L Potassium 5.3 H (3.5-5.1) mmol/L Carbon Dioxide 17 L (22-30) mmol/L BUN 23 H (9-20) mg/dL Glucose 208 H (74-99) mg/dL POC Glucose (mg/dL) 208 H (70-110) mg/dL Plasma Lactic Acid Jeremiah 3.7 H* (0.7-2.0) mmol/L Calcium 7.6 L (8.4-10.2) mg/dL Phosphorus 2.2 L (2.5-4.5) mg/dL Magnesium 1.0 L (1.6-2.3) mg/dL AST 134 H (17-59) U/L Troponin I (0.000-0.034) ng/mL Total Protein 6.2 L (6.3-8.2) g/dL Urine Protein (Negative) Urine Glucose (UA) (Negative) Urine Ketones (Negative) Hyaline Casts (0-2) /lpf Urine Mucus (None) /hpf 06/25/22 06/25/22 06/25/22 Range/Units 04:03 04:15 08:48 RBC (4.30-5.90) m/uL Hgb (13.0-17.5) gm/dL Hct (39.0-53.0) % RDW (11.5-15.5) % Plt Count (150-450) k/uL Lymphocytes # (1.0-4.8) k/uL APTT (22.0-30.0) sec D-Dimer 3.97 H (<0.60) mg/L FEU ABG pCO2 31 L (35-45) mmHg ABG pO2 60 L (83-108) mmHg ABG HCO3 19 L (21-25) mmol/L ABG O2 Saturation 92.8 L (94-97) % Sodium (137-145) mmol/L Potassium (3.5-5.1) mmol/L Carbon Dioxide (22-30) mmol/L BUN (9-20) mg/dL Glucose (74-99) mg/dL POC Glucose (mg/dL) (70-110) mg/dL Plasma Lactic Acid Jeremiah 2.8 H* (0.7-2.0) mmol/L Calcium (8.4-10.2) mg/dL Phosphorus (2.5-4.5) mg/dL Magnesium (1.6-2.3) mg/dL AST (17-59) U/L Troponin I (0.000-0.034) ng/mL Total Protein (6.3-8.2) g/dL Urine Protein (Negative) Urine Glucose (UA) (Negative) Urine Ketones (Negative) Hyaline Casts (0-2) /lpf Urine Mucus (None) /hpf 06/25/22 06/25/22 Range/Units 08:48 09:17 RBC (4.30-5.90) m/uL Hgb (13.0-17.5) gm/dL Hct (39.0-53.0) % RDW (11.5-15.5) % Plt Count (150-450) k/uL Lymphocytes # (1.0-4.8) k/uL APTT (22.0-30.0) sec D-Dimer (<0.60) mg/L FEU ABG pCO2 (35-45) mmHg ABG pO2 (83-108) mmHg ABG HCO3 (21-25) mmol/L ABG O2 Saturation (94-97) % Sodium (137-145) mmol/L Potassium (3.5-5.1) mmol/L Carbon Dioxide (22-30) mmol/L BUN (9-20) mg/dL Glucose (74-99) mg/dL POC Glucose (mg/dL) 191 H (70-110) mg/dL Plasma Lactic Acid Jeremiah (0.7-2.0) mmol/L Calcium (8.4-10.2) mg/dL Phosphorus (2.5-4.5) mg/dL Magnesium (1.6-2.3) mg/dL AST (17-59) U/L Troponin I 0.119 H* (0.000-0.034) ng/mL Total Protein (6.3-8.2) g/dL Urine Protein (Negative) Urine Glucose (UA) (Negative) Urine Ketones (Negative) Hyaline Casts (0-2) /lpf Urine Mucus (None) /hpf Assessment and Plan (1) Colitis Narrative/Plan: 66-year-old male who presented with nausea and vomiting several times yesterday early afternoon, weakness tachycardia fevers and chills. Patient with next temp of 105.9, with lactic acidosis concerns for sepsis underwent a CT of the abdomen and pelvis for complaints of nausea vomiting diarrhea and abdominal pain. CT abdomen and pelvis reported sigmoid colon wall thickening consistent with colitis with scattered colonic diverticuli without focal changes to suggest diverticulitis. No prior history of colitis, colonoscopies up to date with last one being 2019 with findings of colon polyps status post polypectomy. Patient no longer having any abdominal pain, no further nausea vomiting since he's been hospitalized and weighs states diarrhea is chronic with no change and no blood in his stool. No reported hematemesis or coffee-ground emesis. Likely dealing with an infectious colitis, however patient also has CT findings concerning for possible cholecystitis. Either way patient has been started on IV Flagyl and IV Zosyn. Multiple consultants on case. No plans on endoscopic evaluation, continue with symptomatic care. Current Visit: Yes Status: Acute Code(s): K52.9 - NONINFECTIVE GASTROENTERITIS AND COLITIS, UNSPECIFIED SNOMED Code(s): 94509758 (2) Chronic diarrhea Narrative/Plan: Long-standing history of chronic diarrhea from metformin recently started on Prevalite with improvement in symptoms. Current Visit: Yes Status: Acute Code(s): K52.9 - NONINFECTIVE GASTROENTERITIS AND COLITIS, UNSPECIFIED SNOMED Code(s): 662711852 (3) Lactic acidosis Current Visit: Yes Status: Acute Code(s): E87.20 - ACIDOSIS, UNSPECIFIED SNOMED Code(s): 56668303 (4) Nausea and vomiting Current Visit: Yes Status: Acute Code(s): R11.2 - NAUSEA WITH VOMITING, UNSPECIFIED SNOMED Code(s): 26864777 (5) Diabetes Current Visit: No Status: Acute Code(s): E11.9 - TYPE 2 DIABETES MELLITUS WITHOUT COMPLICATIONS SNOMED Code(s): 31013156 (6) HTN (hypertension) Current Visit: No Status: Acute Code(s): I10 - ESSENTIAL (PRIMARY) HYPERTENSION SNOMED Code(s): 48136205 Plan: 1. Continue symptomatic and supportive care 2. Continue with IV antibiotics as ordered 3. Protonix 40 mg daily for GI prophylaxis 4. Antiemetics as needed 5. Clear liquid diet, advance as tolerated 6. Multiple consultants on case, continue with recommendations 7. Continue medical management per primary medical team 8. No plans on endoscopic evaluation at this time Thank you for this consultation, there will be no GI services through the weekend. GI services will return on Tuesday in follow-up. Dr. Radha Das I agree with the dictator's note, documented as a scribe by Tamra Del Toro.
[2022-06-25] MEDS: metroNIDAZOLE-NS PMX 500 MG in SALINE 1 100ML.BAG IVPB SCH ×3 (12:34→23:58)
--- NOTE | 2022-06-25 12:48 | US ---
EXAMINATION TYPE: US venous doppler duplex LE LT DATE OF EXAM: 06/25/2022 12:38 PM COMPARISON: Bilateral ultrasound venous mapping 10/04/2013., Bilateral extremity venous ultrasound 08/15 CLINICAL INDICATION: Male, 66 years old with history of leg pain; SIDE PERFORMED: Left TECHNIQUE: The lower extremity deep venous system is examined utilizing real time linear array sonog val with graded compression, doppler sonography and color-flow sonography. VESSELS IMAGED: Common Femoral Vein Deep Femoral Vein Greater Saphenous Vein * Femoral Vein Popliteal Vein Small Saphenous Vein * Proximal Calf Veins (* superficial vessels) Left Leg: Positive for DVT that appears chronic throughout entire left venous system from groin to p irineo calf veins. There is stranding seen with thready flow and partial compression. IMPRESSION: Redemonstration of chronic deep venous thrombosis throughout the left lower extremity from ultrasound 09/11/2013.
--- NOTE | 2022-06-25 13:50 | P.GSCN ---
History of Present Illness Consult date: 06/25/22 Reason for Consult: colitis, cholecystitis History of present illness: this is a 66-year-old male with multiple medical problems. Patient was admitted through the emergency room was admitted through the emergency room Patient's CAT scan shows evidence of possible chronic cholecystitis as well as possible colitis. Patient denies any significant abdominal pain currently. He has an extensive medical history with multiple vascular procedures. He has a right above-knee amputation. The patient was obtunded earlier this morning. However currently he is appropriate. He denies any significant abdominal pain. He is complaining of the Cutler catheter. He is also complaining of some shoulder pain. Past Medical History Past Medical History: Cancer, Diabetes Mellitus, Deep Vein Thrombosis (DVT), Hyperlipidemia, Hypertension, Myocardial Infarction (ME), Sleep Apnea/CPAP/BIPAP, Vascular Disorder Additional Past Medical History / Comment(s): HX OF DVT'S 2013 (legs & arm)., PAD, Hx DIABETIC ULCERS, LEFT ANKLE WOUND THAT IS HEALING, HX OF SLEEP APNEA(RESOLVED WITH WT LOSS)., RIGHT AKA , WEARS PROSTHESIS. bladder cancer get injections to his eyes for diabetic retinopathy approx q 6 weeks Last Myocardial Infarction Date:: 2001 History of Any Multi-Drug Resistant Organisms: None Reported Past Surgical History: Bladder Surgery, Heart Catheterization With Stent, Hernia Repair Additional Past Surgical History / Comment(s): right FEMPOP BYPASS by Dr. Orozco on 11/15/13, STENTS TO MARIANELA GROINS DONE AT [facility] in 2006, RIGHT ABOVE KNEE AMPUTATION 11/2013. AMPUTATION 4TH TOES LT FOOT, "BLADDER SCRAPING" X2 AT [facility], URETHRAL STENT PLACMENT AND REMOVAL. amputation revision feb 2021 Past Anesthesia/Blood Transfusion Reactions: No Reported Reaction Additional Past Anesthesia/Blood Transfusion Reaction / Comm: PT STATES HE FELT REALLY "POORLY" AFTER ONE OF HIS RECENT SURGERIES AT [facility] Date of Last Stent Placement:: 2001 & 2006 Past Psychological History: No Psychological Hx Reported Smoking Status: Former smoker Past Alcohol Use History: None Reported Past Drug Use History: None Reported - Past Family History Father Family Medical History: CVA/TIA, Diabetes Mellitus, Vascular Disorder Additional Family Medical History / Comment(s): leg amputation, in intermediate d/t diabetic cx. Mother Family Medical History: Cancer, Coronary Artery Disease (CAD) Additional Family Medical History / Comment(s): LYMPHOMA Sister(s) Family Medical History: Cancer Medications and Allergies Home Medications Medication Instructions Recorded Confirmed Type Aspirin EC [Ecotrin Low Dose] 81 mg PO DAILY #30 tablet. 10/06/13 06/24/22 Rx Atorvastatin [Lipitor] 40 mg PO DAILY 11/07/13 06/24/22 History lisinopriL [Zestril] 2.5 mg PO DAILY 07/24/14 06/24/22 History Pentoxifylline [TRENtal] 400 mg PO TID 02/09/18 06/24/22 History Gabapentin [Neurontin] 300 mg PO QID PRN 12/10/19 06/24/22 History Ibuprofen 200 mg PO BID 12/10/19 06/24/22 History Rivaroxaban [Xarelto] 20 mg PO DAILY 12/10/19 06/24/22 History carvediloL [Coreg] 12.5 mg PO BID 12/10/19 06/24/22 History Insulin NPH Hum/Reg Insulin Hm 50 unit SQ BID 12/12/19 06/24/22 History [Novolin 70-30 Flexpen] Loratadine 10 mg PO DAILY 03/11/22 06/24/22 History Acetaminophen Tab [Tylenol Tab] 1,000 mg PO Q6HR PRN 06/24/22 06/24/22 History Oxybutynin Chloride [Ditropan XL] 10 mg PO DAILY 06/24/22 06/24/22 History Phenazopyridine [Pyridium] 200 mg PO TID PRN 06/24/22 06/24/22 History Prevalite 1 scoop PO DAILY 06/24/22 06/24/22 History Spironolactone [Aldactone] 12.5 mg PO DAILY 06/24/22 06/24/22 History Tamsulosin HCl [Flomax] 0.4 mg PO DAILY 06/24/22 06/24/22 History metFORMIN HCL ER [Glucophage XR] 1,000 mg PO BID 06/24/22 06/24/22 History Allergies Allergy/AdvReac Type Severity Reaction Status Date / Time empagliflozin AdvReac Unknown joints ache Verified 06/24/22 18:04 [From Jardiance] Surgical - Exam Vital Signs Temp Pulse Resp BP Pulse Ox 99.6 F 140 H 18 105/65 94 L 06/24/22 15:36 06/24/22 15:36 06/24/22 15:36 06/24/22 15:36 06/24/22 15:36 - General moderate distress - Eyes PERRL - ENT normal pinna - Neck no masses - Respiratory normal expansion - Cardiovascular Rhythm: regular - Abdomen Mildly distended Abdomen: soft, non tender Results - Labs 06/25/22 03:03 06/25/22 03:03 Abnormal Lab Results - Last 24 Hours (Table) 06/24/22 06/24/22 06/24/22 Range/Units 16:13 16:13 16:13 RBC (4.30-5.90) m/uL Hgb (13.0-17.5) gm/dL Hct (39.0-53.0) % RDW 17.3 H (11.5-15.5) % Plt Count (150-450) k/uL Lymphocytes # 0.6 L (1.0-4.8) k/uL APTT 17.7 L (22.0-30.0) sec D-Dimer (<0.60) mg/L FEU ABG pCO2 (35-45) mmHg ABG pO2 (83-108) mmHg ABG HCO3 (21-25) mmol/L ABG O2 Saturation (94-97) % Sodium (137-145) mmol/L Potassium (3.5-5.1) mmol/L Carbon Dioxide (22-30) mmol/L BUN (9-20) mg/dL Glucose (74-99) mg/dL POC Glucose (mg/dL) (70-110) mg/dL Plasma Lactic Acid Jeremiah (0.7-2.0) mmol/L Calcium (8.4-10.2) mg/dL Phosphorus (2.5-4.5) mg/dL Magnesium (1.6-2.3) mg/dL AST (17-59) U/L Troponin I (0.000-0.034) ng/mL C-Reactive Protein (<1.0) mg/dL Total Protein (6.3-8.2) g/dL Urine Protein 1+ H (Negative) Urine Glucose (UA) Trace H (Negative) Urine Ketones Trace H (Negative) Hyaline Casts 9 H (0-2) /lpf Urine Mucus Rare H (None) /hpf 06/24/22 06/24/22 06/24/22 Range/Units 16:13 16:13 16:13 RBC (4.30-5.90) m/uL Hgb (13.0-17.5) gm/dL Hct (39.0-53.0) % RDW (11.5-15.5) % Plt Count (150-450) k/uL Lymphocytes # (1.0-4.8) k/uL APTT (22.0-30.0) sec D-Dimer (<0.60) mg/L FEU ABG pCO2 (35-45) mmHg ABG pO2 (83-108) mmHg ABG HCO3 (21-25) mmol/L ABG O2 Saturation (94-97) % Sodium (137-145) mmol/L Potassium (3.5-5.1) mmol/L Carbon Dioxide 19 L (22-30) mmol/L BUN 23 H (9-20) mg/dL Glucose 282 H (74-99) mg/dL POC Glucose (mg/dL) (70-110) mg/dL Plasma Lactic Acid Jeremiah 5.4 H* (0.7-2.0) mmol/L Calcium (8.4-10.2) mg/dL Phosphorus 2.0 L (2.5-4.5) mg/dL Magnesium 1.4 L (1.6-2.3) mg/dL AST (17-59) U/L Troponin I 0.042 H* (0.000-0.034) ng/mL C-Reactive Protein (<1.0) mg/dL Total Protein (6.3-8.2) g/dL Urine Protein (Negative) Urine Glucose (UA) (Negative) Urine Ketones (Negative) Hyaline Casts (0-2) /lpf Urine Mucus (None) /hpf 06/24/22 06/24/22 06/25/22 Range/Units 19:36 23:05 03:03 RBC 3.78 L (4.30-5.90) m/uL Hgb 11.5 L (13.0-17.5) gm/dL Hct 34.7 L (39.0-53.0) % RDW 17.4 H (11.5-15.5) % Plt Count 129 L (150-450) k/uL Lymphocytes # 0.3 L (1.0-4.8) k/uL APTT (22.0-30.0) sec D-Dimer (<0.60) mg/L FEU ABG pCO2 (35-45) mmHg ABG pO2 (83-108) mmHg ABG HCO3 (21-25) mmol/L ABG O2 Saturation (94-97) % Sodium (137-145) mmol/L Potassium (3.5-5.1) mmol/L Carbon Dioxide (22-30) mmol/L BUN (9-20) mg/dL Glucose (74-99) mg/dL POC Glucose (mg/dL) (70-110) mg/dL Plasma Lactic Acid Jeremiah 3.1 H* 3.8 H* (0.7-2.0) mmol/L Calcium (8.4-10.2) mg/dL Phosphorus (2.5-4.5) mg/dL Magnesium (1.6-2.3) mg/dL AST (17-59) U/L Troponin I (0.000-0.034) ng/mL C-Reactive Protein (<1.0) mg/dL Total Protein (6.3-8.2) g/dL Urine Protein (Negative) Urine Glucose (UA) (Negative) Urine Ketones (Negative) Hyaline Casts (0-2) /lpf Urine Mucus (None) /hpf 06/25/22 06/25/22 06/25/22 Range/Units 03:03 03:03 03:37 RBC (4.30-5.90) m/uL Hgb (13.0-17.5) gm/dL Hct (39.0-53.0) % RDW (11.5-15.5) % Plt Count (150-450) k/uL Lymphocytes # (1.0-4.8) k/uL APTT (22.0-30.0) sec D-Dimer (<0.60) mg/L FEU ABG pCO2 (35-45) mmHg ABG pO2 (83-108) mmHg ABG HCO3 (21-25) mmol/L ABG O2 Saturation (94-97) % Sodium 133 L (137-145) mmol/L Potassium 5.3 H (3.5-5.1) mmol/L Carbon Dioxide 17 L (22-30) mmol/L BUN 23 H (9-20) mg/dL Glucose 208 H (74-99) mg/dL POC Glucose (mg/dL) 208 H (70-110) mg/dL Plasma Lactic Acid Jeremiah 3.7 H* (0.7-2.0) mmol/L Calcium 7.6 L (8.4-10.2) mg/dL Phosphorus 2.2 L (2.5-4.5) mg/dL Magnesium 1.0 L (1.6-2.3) mg/dL AST 134 H (17-59) U/L Troponin I (0.000-0.034) ng/mL C-Reactive Protein (<1.0) mg/dL Total Protein 6.2 L (6.3-8.2) g/dL Urine Protein (Negative) Urine Glucose (UA) (Negative) Urine Ketones (Negative) Hyaline Casts (0-2) /lpf Urine Mucus (None) /hpf 06/25/22 06/25/22 06/25/22 Range/Units 04:03 04:15 08:48 RBC (4.30-5.90) m/uL Hgb (13.0-17.5) gm/dL Hct (39.0-53.0) % RDW (11.5-15.5) % Plt Count (150-450) k/uL Lymphocytes # (1.0-4.8) k/uL APTT (22.0-30.0) sec D-Dimer 3.97 H (<0.60) mg/L FEU ABG pCO2 31 L (35-45) mmHg ABG pO2 60 L (83-108) mmHg ABG HCO3 19 L (21-25) mmol/L ABG O2 Saturation 92.8 L (94-97) % Sodium (137-145) mmol/L Potassium (3.5-5.1) mmol/L Carbon Dioxide (22-30) mmol/L BUN (9-20) mg/dL Glucose (74-99) mg/dL POC Glucose (mg/dL) (70-110) mg/dL Plasma Lactic Acid Jeremiah 2.8 H* (0.7-2.0) mmol/L Calcium (8.4-10.2) mg/dL Phosphorus (2.5-4.5) mg/dL Magnesium (1.6-2.3) mg/dL AST (17-59) U/L Troponin I (0.000-0.034) ng/mL C-Reactive Protein (<1.0) mg/dL Total Protein (6.3-8.2) g/dL Urine Protein (Negative) Urine Glucose (UA) (Negative) Urine Ketones (Negative) Hyaline Casts (0-2) /lpf Urine Mucus (None) /hpf 06/25/22 06/25/22 06/25/22 Range/Units 08:48 09:17 10:32 RBC (4.30-5.90) m/uL Hgb (13.0-17.5) gm/dL Hct (39.0-53.0) % RDW (11.5-15.5) % Plt Count (150-450) k/uL Lymphocytes # (1.0-4.8) k/uL APTT (22.0-30.0) sec D-Dimer (<0.60) mg/L FEU ABG pCO2 (35-45) mmHg ABG pO2 (83-108) mmHg ABG HCO3 (21-25) mmol/L ABG O2 Saturation (94-97) % Sodium (137-145) mmol/L Potassium (3.5-5.1) mmol/L Carbon Dioxide (22-30) mmol/L BUN (9-20) mg/dL Glucose (74-99) mg/dL POC Glucose (mg/dL) 191 H (70-110) mg/dL Plasma Lactic Acid Jeremiah (0.7-2.0) mmol/L Calcium (8.4-10.2) mg/dL Phosphorus (2.5-4.5) mg/dL Magnesium (1.6-2.3) mg/dL AST (17-59) U/L Troponin I 0.119 H* (0.000-0.034) ng/mL C-Reactive Protein 14.3 H (<1.0) mg/dL Total Protein (6.3-8.2) g/dL Urine Protein (Negative) Urine Glucose (UA) (Negative) Urine Ketones (Negative) Hyaline Casts (0-2) /lpf Urine Mucus (None) /hpf 06/25/22 06/25/22 Range/Units 11:39 11:39 RBC (4.30-5.90) m/uL Hgb (13.0-17.5) gm/dL Hct (39.0-53.0) % RDW (11.5-15.5) % Plt Count (150-450) k/uL Lymphocytes # (1.0-4.8) k/uL APTT (22.0-30.0) sec D-Dimer (<0.60) mg/L FEU ABG pCO2 (35-45) mmHg ABG pO2 (83-108) mmHg ABG HCO3 (21-25) mmol/L ABG O2 Saturation (94-97) % Sodium (137-145) mmol/L Potassium (3.5-5.1) mmol/L Carbon Dioxide (22-30) mmol/L BUN (9-20) mg/dL Glucose (74-99) mg/dL POC Glucose (mg/dL) (70-110) mg/dL Plasma Lactic Acid Jeremiah 3.6 H* (0.7-2.0) mmol/L Calcium (8.4-10.2) mg/dL Phosphorus (2.5-4.5) mg/dL Magnesium (1.6-2.3) mg/dL AST (17-59) U/L Troponin I 0.112 H* (0.000-0.034) ng/mL C-Reactive Protein (<1.0) mg/dL Total Protein (6.3-8.2) g/dL Urine Protein (Negative) Urine Glucose (UA) (Negative) Urine Ketones (Negative) Hyaline Casts (0-2) /lpf Urine Mucus (None) /hpf Diabetes panel 06/24/22 06/25/22 Range/Units 16:13 03:03 Sodium 140 133 L (137-145) mmol/L Potassium 4.7 5.3 H (3.5-5.1) mmol/L Chloride 101 103 (98-107) mmol/L Carbon Dioxide 19 L 17 L (22-30) mmol/L BUN 23 H 23 H (9-20) mg/dL Creatinine 1.21 1.25 (0.66-1.25) mg/dL Glucose 282 H 208 H (74-99) mg/dL Calcium 9.6 7.6 L (8.4-10.2) mg/dL AST 39 134 H (17-59) U/L ALT 26 30 (4-49) U/L Alkaline Phosphatase 81 50 (38-126) U/L Total Protein 7.8 6.2 L (6.3-8.2) g/dL Albumin 4.7 3.7 (3.5-5.0) g/dL Calcium panel 06/24/22 06/25/22 Range/Units 16:13 03:03 Calcium 9.6 7.6 L (8.4-10.2) mg/dL Phosphorus 2.0 L 2.2 L (2.5-4.5) mg/dL Albumin 4.7 3.7 (3.5-5.0) g/dL Pituitary panel 06/24/22 06/25/22 Range/Units 16:13 03:03 Sodium 140 133 L (137-145) mmol/L Potassium 4.7 5.3 H (3.5-5.1) mmol/L Chloride 101 103 (98-107) mmol/L Carbon Dioxide 19 L 17 L (22-30) mmol/L BUN 23 H 23 H (9-20) mg/dL Creatinine 1.21 1.25 (0.66-1.25) mg/dL Glucose 282 H 208 H (74-99) mg/dL Calcium 9.6 7.6 L (8.4-10.2) mg/dL Adrenal panel 06/24/22 06/25/22 Range/Units 16:13 03:03 Sodium 140 133 L (137-145) mmol/L Potassium 4.7 5.3 H (3.5-5.1) mmol/L Chloride 101 103 (98-107) mmol/L Carbon Dioxide 19 L 17 L (22-30) mmol/L BUN 23 H 23 H (9-20) mg/dL Creatinine 1.21 1.25 (0.66-1.25) mg/dL Glucose 282 H 208 H (74-99) mg/dL Calcium 9.6 7.6 L (8.4-10.2) mg/dL Total Bilirubin 0.9 0.8 (0.2-1.3) mg/dL AST 39 134 H (17-59) U/L ALT 26 30 (4-49) U/L Alkaline Phosphatase 81 50 (38-126) U/L Total Protein 7.8 6.2 L (6.3-8.2) g/dL Albumin 4.7 3.7 (3.5-5.0) g/dL - Imaging CT scan - abdomen: report reviewed ( sigmoid colon colitis, possible cholecystitis) Assessment and Plan Plan: the patient is lactic acid 3.6. The patient will be admitted to the ICU for fluid resuscitation. Clinically his abdomen is soft. We will follow with you.
[2022-06-25 13:51] LABS: Glucose,Whole Blood 177 mg/dL (70-110)
[2022-06-25] MEDS ORDERED: VANCOMYCIN IV PER PHARMACY 1 EACH MISC MISCELLANE PRN (13:53)
[2022-06-25] MEDS ORDERED: VANCOMYCIN 1,750 MG in SODIUM CHLORIDE 0.9% 500 ML 500 ML IVPB SCH (14:00)
--- NOTE | 2022-06-25 14:06 | P.GSCN ---
History of Present Illness Consult date: 06/25/22 Reason for Consult: Cool left lower extremity Requesting physician: Artemio Stacy History of present illness: This is a 66-year-old male with multiple comorbidities who presented to the emergency department yesterday afternoon with complaints of heart racing, dizziness and lightheaded, diaphoresis, back pain nausea and vomiting. Past medical history includes diabetes mellitus, coronary artery disease, ischemic cardiomyopathy, peripheral arterial disease with chronic wounds with history of [id number] amputation and history of DVTs, hypertension, dyslipidemia, and recent diagnosis of bladder cancer with radiation and chemotherapy which was finished about 6 weeks ago. At this time most of the HPI is obtained from as patient is quite ill appearing. states patient had multiple episodes of vomiting yesterday morning, denied any hematemesis, he then became diaphoretic with complaints of chills and was shaking uncontrollably. Patient's states she did take his temperature but he did not have a fever. She reports that he has chronic diarrhea from his metformin but was recently started on a medication to help with the diarrhea. This morning patient was noted to have a max temp of 105.9, he is currently on a cooling blanket. IV antibiotics Flagyl and Zosyn have been ordered. As well as multiple consultants including infectious disease, cardiology, gastroenterology and general surgery. He has a significant long history of peripheral vascular disease, venous stasis, venous and diabetic wounds for which he has seen Dr. Orozco and Dr. Yates in the past. He had been been referred to [facility] and had been seeing a vascular surgeon there until he retired. Has not established with a new vascular surgeon in the area. Patient admitted for sepsis. Vascular surgery was consulted for cool left lower extremity. Patient did have a positive d-dimer, venous duplex of left lower extremity pending. Prior right [id number] amputation in 2013 well-healed. History of fem-pop bypass and aorto iliac bypass grafts. Has a chronic wound to the left medial aspect of ankle without any redness or drainage. Currently not undergoing any formal wound care. Patient's stated that Dr. Yates recommended a left lower extremity amputation however patient declined and states he would continue to live with wounds. Patient is a NO CODE. He is drifting in and out of sleep and unable to answer anymore questions. CT abdomen and pelvis without contrast reported sigmoid colon wall thickening consistent with colitis. Scattered colonic diverticuli without focal changes to suggest diverticulitis. Contracted gallbladder with marked thickening consistent with cystitis. Well distended gallbladder without gallstones. Redemonstrated aorto biiliac vascular bypass graft. Lack of intravenous contrast material limits evaluation. Review of Systems ROS unobtainable: due to mental status Past Medical History Past Medical History: Cancer, Diabetes Mellitus, Deep Vein Thrombosis (DVT), H yperlipidemia, Hypertension, Myocardial Infarction (UT), Sleep Apnea/CPAP/BIPAP, Vascular Disorder Additional Past Medical History / Comment(s): HX OF DVT'S 2013 (legs & arm)., PAD, Hx DIABETIC ULCERS, LEFT ANKLE WOUND THAT IS HEALING, HX OF SLEEP APNEA(RESOLVED WITH WT LOSS)., RIGHT AKA , WEARS PROSTHESIS. bladder cancer get injections to his eyes for diabetic retinopathy approx q 6 weeks Last Myocardial Infarction Date:: 2001 History of Any Multi-Drug Resistant Organisms: None Reported Past Surgical History: Bladder Surgery, Heart Catheterization With Stent, Hernia Repair Additional Past Surgical History / Comment(s): right FEMPOP BYPASS by Dr. Orozco on 11/15/13, STENTS TO MARIANELA GROINS DONE AT [facility] in 2006, RIGHT ABOVE KNEE AMPUTATION 11/2013. AMPUTATION 4TH TOES LT FOOT, "BLADDER SCRAPING" X2 AT [facility], URETHRAL STENT PLACMENT AND REMOVAL. amputation revision feb 2021 Past Anesthesia/Blood Transfusion Reactions: No Reported Reaction Additional Past Anesthesia/Blood Transfusion Reaction / Comm: PT STATES HE FELT REALLY "POORLY" AFTER ONE OF HIS RECENT SURGERIES AT [facility] Date of Last Stent Placement:: 2001 & 2006 Past Psychological History: No Psychological Hx Reported Smoking Status: Former smoker Past Alcohol Use History: None Reported Past Drug Use History: None Reported - Past Family History Father Family Medical History: CVA/TIA, Diabetes Mellitus, Vascular Disorder Additional Family Medical History / Comment(s): leg amputation, in jail d/t diabetic cx. Mother Family Medical History: Cancer, Coronary Artery Disease (CAD) Additional Family Medical History / Comment(s): LYMPHOMA Sister(s) Family Medical History: Cancer Medications and Allergies Home Medications Medication Instructions Recorded Confirmed Type Aspirin EC [Ecotrin Low Dose] 81 mg PO DAILY #30 tablet. 10/06/13 06/24/22 Rx Atorvastatin [Lipitor] 40 mg PO DAILY 11/07/13 06/24/22 History lisinopriL [Zestril] 2.5 mg PO DAILY 07/24/14 06/24/22 History Pentoxifylline [TRENtal] 400 mg PO TID 02/09/18 06/24/22 History Gabapentin [Neurontin] 300 mg PO QID PRN 12/10/19 06/24/22 History Ibuprofen 200 mg PO BID 12/10/19 06/24/22 History Rivaroxaban [Xarelto] 20 mg PO DAILY 12/10/19 06/24/22 History carvediloL [Coreg] 12.5 mg PO BID 12/10/19 06/24/22 History Insulin NPH Hum/Reg Insulin Hm 50 unit SQ BID 12/12/19 06/24/22 History [Novolin 70-30 Flexpen] Loratadine 10 mg PO DAILY 03/11/22 06/24/22 History Acetaminophen Tab [Tylenol Tab] 1,000 mg PO Q6HR PRN 06/24/22 06/24/22 History Oxybutynin Chloride [Ditropan XL] 10 mg PO DAILY 06/24/22 06/24/22 History Phenazopyridine [Pyridium] 200 mg PO TID PRN 06/24/22 06/24/22 History Prevalite 1 scoop PO DAILY 06/24/22 06/24/22 History Spironolactone [Aldactone] 12.5 mg PO DAILY 06/24/22 06/24/22 History Tamsulosin HCl [Flomax] 0.4 mg PO DAILY 06/24/22 06/24/22 History metFORMIN HCL ER [Glucophage XR] 1,000 mg PO BID 06/24/22 06/24/22 History Allergies Allergy/AdvReac Type Severity Reaction Status Date / Time empagliflozin AdvReac Unknown joints ache Verified 06/24/22 18:04 [From Jardiance] Surgical - Exam Vital Signs Temp Pulse Resp BP Pulse Ox 99.6 F 140 H 18 105/65 94 L 06/24/22 15:36 06/24/22 15:36 06/24/22 15:36 06/24/22 15:36 06/24/22 15:36 General appearance: The patient is alert, lethargic, ill-appearing. Obese. HET: Head is normocephalic and atraumatic. Neck: Supple. Heart: Regular. Lungs: Equal expansion, normal respiratory effort. Abdomen: Soft, nontender, nondistended. Extremities: Right lower extremity with [id number] amputation well healed. Left lower extremity with venous dermatitis, with chronic wound to medial aspect of left ankle, no tunneling or underminig, no drainage. 4th toe amputation, no toenail present on great toe. Left lower exremity warm to touch, foot slightly cooler, with some purple discoloration. Overall good capillary refill. nonpalpable PT and DP pulses and signla. Monophasic femoral and pop liteal signal. Neurological: No focal deficits. patient very lethargic, drifting in and out of sleep. Results - Labs 06/25/22 03:03 06/25/22 03:03 Abnormal Lab Results - Last 24 Hours (Table) 06/24/22 06/24/22 06/24/22 Range/Units 16:13 16:13 16:13 RBC (4.30-5.90) m/uL Hgb (13.0-17.5) gm/dL Hct (39.0-53.0) % RDW 17.3 H (11.5-15.5) % Plt Count (150-450) k/uL Lymphocytes # 0.6 L (1.0-4.8) k/uL APTT 17.7 L (22.0-30.0) sec D-Dimer (<0.60) mg/L FEU ABG pCO2 (35-45) mmHg ABG pO2 (83-108) mmHg ABG HCO3 (21-25) mmol/L ABG O2 Saturation (94-97) % Sodium (137-145) mmol/L Potassium (3.5-5.1) mmol/L Carbon Dioxide (22-30) mmol/L BUN (9-20) mg/dL Glucose (74-99) mg/dL POC Glucose (mg/dL) (70-110) mg/dL Plasma Lactic Acid Jeremiah (0.7-2.0) mmol/L Calcium (8.4-10.2) mg/dL Phosphorus (2.5-4.5) mg/dL Magnesium (1.6-2.3) mg/dL AST (17-59) U/L Troponin I (0.000-0.034) ng/mL C-Reactive Protein (<1.0) mg/dL Total Protein (6.3-8.2) g/dL Urine Protein 1+ H (Negative) Urine Glucose (UA) Trace H (Negative) Urine Ketones Trace H (Negative) Hyaline Casts 9 H (0-2) /lpf Urine Mucus Rare H (None) /hpf 06/24/22 06/24/22 06/24/22 Range/Units 16:13 16:13 16:13 RBC (4.30-5.90) m/uL Hgb (13.0-17.5) gm/dL Hct (39.0-53.0) % RDW (11.5-15.5) % Plt Count (150-450) k/uL Lymphocytes # (1.0-4.8) k/uL APTT (22.0-30.0) sec D-Dimer (<0.60) mg/L FEU ABG pCO2 (35-45) mmHg ABG pO2 (83-108) mmHg ABG HCO3 (21-25) mmol/L ABG O2 Saturation (94-97) % Sodium (137-145) mmol/L Potassium (3.5-5.1) mmol/L Carbon Dioxide 19 L (22-30) mmol/L BUN 23 H (9-20) mg/dL Glucose 282 H (74-99) mg/dL POC Glucose (mg/dL) (70-110) mg/dL Plasma Lactic Acid Jeremiah 5.4 H* (0.7-2.0) mmol/L Calcium (8.4-10.2) mg/dL Phosphorus 2.0 L (2.5-4.5) mg/dL Magnesium 1.4 L (1.6-2.3) mg/dL AST (17-59) U/L Troponin I 0.042 H* (0.000-0.034) ng/mL C-Reactive Protein (<1.0) mg/dL Total Protein (6.3-8.2) g/dL Urine Protein (Negative) Urine Glucose (UA) (Negative) Urine Ketones (Negative) Hyaline Casts (0-2) /lpf Urine Mucus (None) /hpf 06/24/22 06/24/22 06/25/22 Range/Units 19:36 23:05 03:03 RBC 3.78 L (4.30-5.90) m/uL Hgb 11.5 L (13.0-17.5) gm/dL Hct 34.7 L (39.0-53.0) % RDW 17.4 H (11.5-15.5) % Plt Count 129 L (150-450) k/uL Lymphocytes # 0.3 L (1.0-4.8) k/uL APTT (22.0-30.0) sec D-Dimer (<0.60) mg/L FEU ABG pCO2 (35-45) mmHg ABG pO2 (83-108) mmHg ABG HCO3 (21-25) mmol/L ABG O2 Saturation (94-97) % Sodium (137-145) mmol/L Potassium (3.5-5.1) mmol/L Carbon Dioxide (22-30) mmol/L BUN (9-20) mg/dL Glucose (74-99) mg/dL POC Glucose (mg/dL) (70-110) mg/dL Plasma Lactic Acid Jeremiah 3.1 H* 3.8 H* (0.7-2.0) mmol/L Calcium (8.4-10.2) mg/dL Phosphorus (2.5-4.5) mg/dL Magnesium (1.6-2.3) mg/dL AST (17-59) U/L Troponin I (0.000-0.034) ng/mL C-Reactive Protein (<1.0) mg/dL Total Protein (6.3-8.2) g/dL Urine Protein (Negative) Urine Glucose (UA) (Negative) Urine Ketones (Negative) Hyaline Casts (0-2) /lpf Urine Mucus (None) /hpf 06/25/22 06/25/22 06/25/22 Range/Units 03:03 03:03 03:37 RBC (4.30-5.90) m/uL Hgb (13.0-17.5) gm/dL Hct (39.0-53.0) % RDW (11.5-15.5) % Plt Count (150-450) k/uL Lymphocytes # (1.0-4.8) k/uL APTT (22.0-30.0) sec D-Dimer (<0.60) mg/L FEU ABG pCO2 (35-45) mmHg ABG pO2 (83-108) mmHg ABG HCO3 (21-25) mmol/L ABG O2 Saturation (94-97) % Sodium 133 L (137-145) mmol/L Potassium 5.3 H (3.5-5.1) mmol/L Carbon Dioxide 17 L (22-30) mmol/L BUN 23 H (9-20) mg/dL Glucose 208 H (74-99) mg/dL POC Glucose (mg/dL) 208 H (70-110) mg/dL Plasma Lactic Acid Jeremiah 3.7 H* (0.7-2.0) mmol/L Calcium 7.6 L (8.4-10.2) mg/dL Phosphorus 2.2 L (2.5-4.5) mg/dL Magnesium 1.0 L (1.6-2.3) mg/dL AST 134 H (17-59) U/L Troponin I (0.000-0.034) ng/mL C-Reactive Protein (<1.0) mg/dL Total Protein 6.2 L (6.3-8.2) g/dL Urine Protein (Negative) Urine Glucose (UA) (Negative) Urine Ketones (Negative) Hyaline Casts (0-2) /lpf Urine Mucus (None) /hpf 06/25/22 06/25/22 06/25/22 Range/Units 04:03 04:15 08:48 RBC (4.30-5.90) m/uL Hgb (13.0-17.5) gm/dL Hct (39.0-53.0) % RDW (11.5-15.5) % Plt Count (150-450) k/uL Lymphocytes # (1.0-4.8) k/uL APTT (22.0-30.0) sec D-Dimer 3.97 H (<0.60) mg/L FEU ABG pCO2 31 L (35-45) mmHg ABG pO2 60 L (83-108) mmHg ABG HCO3 19 L (21-25) mmol/L ABG O2 Saturation 92.8 L (94-97) % Sodium (137-145) mmol/L Potassium (3.5-5.1) mmol/L Carbon Dioxide (22-30) mmol/L BUN (9-20) mg/dL Glucose (74-99) mg/dL POC Glucose (mg/dL) (70-110) mg/dL Plasma Lactic Acid Jeremiah 2.8 H* (0.7-2.0) mmol/L Calcium (8.4-10.2) mg/dL Phosphorus (2.5-4.5) mg/dL Magnesium (1.6-2.3) mg/dL AST (17-59) U/L Troponin I (0.000-0.034) ng/mL C-Reactive Protein (<1.0) mg/dL Total Protein (6.3-8.2) g/dL Urine Protein (Negative) Urine Glucose (UA) (Negative) Urine Ketones (Negative) Hyaline Casts (0-2) /lpf Urine Mucus (None) /hpf 06/25/22 06/25/22 06/25/22 Range/Units 08:48 09:17 10:32 RBC (4.30-5.90) m/uL Hgb (13.0-17.5) gm/dL Hct (39.0-53.0) % RDW (11.5-15.5) % Plt Count (150-450) k/uL Lymphocytes # (1.0-4.8) k/uL APTT (22.0-30.0) sec D-Dimer (<0.60) mg/L FEU ABG pCO2 (35-45) mmHg ABG pO2 (83-108) mmHg ABG HCO3 (21-25) mmol/L ABG O2 Saturation (94-97) % Sodium (137-145) mmol/L Potassium (3.5-5.1) mmol/L Carbon Dioxide (22-30) mmol/L BUN (9-20) mg/dL Glucose (74-99) mg/dL POC Glucose (mg/dL) 191 H (70-110) mg/dL Plasma Lactic Acid Jeremiah (0.7-2.0) mmol/L Calcium (8.4-10.2) mg/dL Phosphorus (2.5-4.5) mg/dL Magnesium (1.6-2.3) mg/dL AST (17-59) U/L Troponin I 0.119 H* (0.000-0.034) ng/mL C-Reactive Protein 14.3 H (<1.0) mg/dL Total Protein (6.3-8.2) g/dL Urine Protein (Negative) Urine Glucose (UA) (Negative) Urine Ketones (Negative) Hyaline Casts (0-2) /lpf Urine Mucus (None) /hpf 06/25/22 Range/Units 11:39 RBC (4.30-5.90) m/uL Hgb (13.0-17.5) gm/dL Hct (39.0-53.0) % RDW (11.5-15.5) % Plt Count (150-450) k/uL Lymphocytes # (1.0-4.8) k/uL APTT (22.0-30.0) sec D-Dimer (<0.60) mg/L FEU ABG pCO2 (35-45) mmHg ABG pO2 (83-108) mmHg ABG HCO3 (21-25) mmol/L ABG O2 Saturation (94-97) % Sodium (137-145) mmol/L Potassium (3.5-5.1) mmol/L Carbon Dioxide (22-30) mmol/L BUN (9-20) mg/dL Glucose (74-99) mg/dL POC Glucose (mg/dL) (70-110) mg/dL Plasma Lactic Acid Jeremiah 3.6 H* (0.7-2.0) mmol/L Calcium (8.4-10.2) mg/dL Phosphorus (2.5-4.5) mg/dL Magnesium (1.6-2.3) mg/dL AST (17-59) U/L Troponin I (0.000-0.034) ng/mL C-Reactive Protein (<1.0) mg/dL Total Protein (6.3-8.2) g/dL Urine Protein (Negative) Urine Glucose (UA) (Negative) Urine Ketones (Negative) Hyaline Casts (0-2) /lpf Urine Mucus (None) /hpf Diabetes panel 06/24/22 06/25/22 Range/Units 16:13 03:03 Sodium 140 133 L (137-145) mmol/L Potassium 4.7 5.3 H (3.5-5.1) mmol/L Chloride 101 103 (98-107) mmol/L Carbon Dioxide 19 L 17 L (22-30) mmol/L BUN 23 H 23 H (9-20) mg/dL Creatinine 1.21 1.25 (0.66-1.25) mg/dL Glucose 282 H 208 H (74-99) mg/dL Calcium 9.6 7.6 L (8.4-10.2) mg/dL AST 39 134 H (17-59) U/L ALT 26 30 (4-49) U/L Alkaline Phosphatase 81 50 (38-126) U/L Total Protein 7.8 6.2 L (6.3-8.2) g/dL Albumin 4.7 3.7 (3.5-5.0) g/dL Calcium panel 06/24/22 06/25/22 Range/Units 16:13 03:03 Calcium 9.6 7.6 L (8.4-10.2) mg/dL Phosphorus 2.0 L 2.2 L (2.5-4.5) mg/dL Albumin 4.7 3.7 (3.5-5.0) g/dL Pituitary panel 06/24/22 06/25/22 Range/Units 16:13 03:03 Sodium 140 133 L (137-145) mmol/L Potassium 4.7 5.3 H (3.5-5.1) mmol/L Chloride 101 103 (98-107) mmol/L Carbon Dioxide 19 L 17 L (22-30) mmol/L BUN 23 H 23 H (9-20) mg/dL Creatinine 1.21 1.25 (0.66-1.25) mg/dL Glucose 282 H 208 H (74-99) mg/dL Calcium 9.6 7.6 L (8.4-10.2) mg/dL Adrenal panel 06/24/22 06/25/22 Range/Units 16:13 03:03 Sodium 140 133 L (137-145) mmol/L Potassium 4.7 5.3 H (3.5-5.1) mmol/L Chloride 101 103 (98-107) mmol/L Carbon Dioxide 19 L 17 L (22-30) mmol/L BUN 23 H 23 H (9-20) mg/dL Creatinine 1.21 1.25 (0.66-1.25) mg/dL Glucose 282 H 208 H (74-99) mg/dL Calcium 9.6 7.6 L (8.4-10.2) mg/dL Total Bilirubin 0.9 0.8 (0.2-1.3) mg/dL AST 39 134 H (17-59) U/L ALT 26 30 (4-49) U/L Alkaline Phosphatase 81 50 (38-126) U/L Total Protein 7.8 6.2 L (6.3-8.2) g/dL Albumin 4.7 3.7 (3.5-5.0) g/dL Assessment and Plan Assessment: 1. Sepsis 2. Chronic peripheral vascular disease with previous aorto iliac bypass 3. History chronic wounds to left lower extremity 4. Chronic deep vein thrombosis left lower extremity on Xarelto 5. History of chronic wounds to bilateral lower extremities status post right [id number] amputation 6. Lactic acidosis 7. Diabetes mellitus 8. Obesity 9. History coronary artery disease 10. History of cardiomyopathy 11. History of DVTs Plan: 1. Continue symptomatic and supportive care 2. Arterial duplex ordered 3. Further recommendations forthcoming per vascular surgeon Thank you for this consultation, we will continue to follow. The impression and plan of care has been dictated as directed. I performed a history and examination of this patient, discussed the same with the dictator. I agree with the dictator's note ,documented as a scribe. Any additional findings or plans will be noted.
--- NOTE | 2022-06-25 14:19 | XR ---
EXAMINATION TYPE: XR chest 1V portable DATE OF EXAM: 06/25/2022 2:14 PM COMPARISON: Chest radiographs from 06/25/2022 TECHNIQUE: XR chest 1V portable Portable AP radiograph of the chest. CLINICAL INDICATION:Male, 66 years old with history of r/o pneumothorax, post line insertion; FINDINGS: Patient is rotated which was evaluation. Lungs/Pleura: There is no evidence of pleural effusion, focal consolidation, or pneumothorax. Pulmonary vascularity: Unremarkable. Heart/mediastinum: Cardiomediastinal silhouette is prominent in size. Musculoskeletal: No acute osseous pathology. Other findings: None Lines/Tubes: Left internal jugular central venous catheter with distal tip at the superior vena cava brachiocephal ic vein junction. IMPRESSION: Interval placement of left IJ central venous catheter with distal tip in the region of the superior v rachel cava/brachiocephalic vein junction. No pneumothorax.
[2022-06-25] MEDS: DEXTROSE 5% IN WATER 1,000 ML with SODIUM BICARB (1 MEQ/ML) 150 ML IV SCH ×2 (14:30→22:03)
--- NOTE | 2022-06-25 14:53 | P.CNPUL ---
History of Present Illness Consult date: 06/25/22 Chief complaint: Fever/sepsis History of present illness: 66-year-old male patient, extensive medical problems and comorbidities, came into the emergency department yesterday complaining of generalized weakness, dizziness, lightheadedness, diaphoresis, nausea, fever and emesis. At the time of his emergency evaluation, the patient was quite ill and septic looking. He was still febrile. He was spiking a temperature of 105.9. He was started on IV antibiotics and he was given a combination of Zosyn and vancomycin. Cultures were sent. He was given a total of 4 L of IV fluid and following that the patient was moved to the intensive care for further evaluation. The patient has multiple comorbidities as mentioned. The patient has coronary artery disease and severe peripheral vascular disease and the patient has undergone aortobifemoral bypass surgery many years back. 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 There is also chronic ulceration of the tip of his great toe. He has chronic DVTs of the lower extremity and the patient has been maintained on anticoagulation with Xarelto. Patient has hypertension, hyperlipidemia and recent diagnosis of bladder cancer and he was treated with chemotherapy and radiation therapy which she completed approximately 6 weeks ago and I believe this was offered to him through [facility]. The patient was moved to the intensive care unit and he was quite lethargic. He was following commands. He was maintaining his own pressure.. He was normotensive and tachycardic. The WBC count is at 5.6 with a hemoglobin of 11.5 and a platelet count of 129. His sodium level is at 133 with a potassium level of 5.3. BUN is 23 with a creatinine of 1.25 and a serum bicarb is at 17 with an anion gap of 13. Troponins were 0.04 and 0.112 respectively 2. UA showed +1 protein, 2 WBCs. Immediately a triple-lumen catheter was inserted in the patient's was given a chest x-ray that showed interval placement of a left IJ triple-lumen catheter and there was no acute pulmonary abnormalities noted. Doppler of the lower oximetry showed chronic deep vein thrombosis involving left lower extremity. CAT scan of the abdomen and pelvis showed sigmoid colon wall thickening consistent with colitis. There was also scattered colonic diverticuli without focal changes to suggest diverticulitis. The gallbladder was contracted with marked thickening consistent with cholecystitis. There was a well distended gallbladder without any gallstones. The patient also had a cardiac vascular bypass graft. The CAT scan of the brain was unremarkable Review of Systems Constitutional: Reports chills, Reports fatigue, Reports fever, Reports lethargy, Reports weakness, Reports weight gain Eyes: denies as per HPI, denies blurred vision, denies bulging eye, denies decreased vision, denies diplopia, denies discharge, denies dry eye, denies irritation, denies itching, denies pain, denies photophobia, denies loss of peripheral vision, denies loss of vision, denies tunnel vision/blind spots Ears: deny: decreased hearing, ear discharge, earache, tinnitus Ears, nose, mouth and throat: Reports as per HPI Breasts: absent: as per HPI, gynecomastia Cardiovascular: Reports claudication, Reports decreased exercise tolerance, Reports dyspnea on exertion, Reports shortness of breath Respiratory: Reports dyspnea Gastrointestinal: Reports abdominal pain, Reports nausea, Reports vomiting Genitourinary: Reports as per HPI Musculoskeletal: Reports muscle weakness, Reports prior amputations Musculoskeletal: left: ankle swelling, absent: ankle pain, ankle stiffness Integumentary: Reports wounds Neurological: Reports change in mentation Psychiatric: Reports as per HPI Endocrine: Reports as per HPI, Reports fatigue Hematologic/Lymphatic: Reports as per HPI Allergic/Immunologic: Reports as per HPI Past Medical History Past Medical History: Cancer, Diabetes Mellitus, Deep Vein Thrombosis (DVT), Hyperlipidemia, Hypertension, Myocardial Infarction ([place]), Sleep Apnea/CPAP/BIPAP, Vascular Disorder Additional Past Medical History / Comment(s): HX OF DVT'S 2013 (legs & arm)., PAD, Hx DIABETIC ULCERS, LEFT ANKLE WOUND THAT IS HEALING, HX OF SLEEP APNEA(RESOLVED WITH WT LOSS)., RIGHT AKA , WEARS PROSTHESIS. bladder cancer get injections to his eyes for diabetic retinopathy approx q 6 weeks Last Myocardial Infarction Date:: 2001 History of Any Multi-Drug Resistant Organisms: None Reported Past Surgical History: Bladder Surgery, Heart Catheterization With Stent, Hernia Repair Additional Past Surgical History / Comment(s): right FEMPOP BYPASS by Dr. rOozco on 11/15/13, STENTS TO MARIANELA GROINS DONE AT [facility] in 2006, RIGHT ABOVE KNEE AMPUTATION 11/2013. AMPUTATION 4TH TOES LT FOOT, "BLADDER SCRAPING" X2 AT [facility], URETHRAL STENT PLACMENT AND REMOVAL. amputation revision feb 2021 Past Anesthesia/Blood Transfusion Reactions: No Reported Reaction Additional Past Anesthesia/Blood Transfusion Reaction / Comment(s): PT STATES HE FELT REALLY "POORLY" AFTER ONE OF HIS RECENT SURGERIES AT [facility] Date of Last Stent Placement:: 2001 & 2006 Past Psychological History: No Psychological Hx Reported Smoking Status: Former smoker Past Alcohol Use History: None Reported Past Drug Use History: None Reported - Past Family History Father Family Medical History: CVA/TIA, Diabetes Mellitus, Vascular Disorder Additional Family Medical History / Comment(s): leg amputation, in skilled nursing d/t diabetic cx. Mother Family Medical History: Cancer, Coronary Artery Disease (CAD) Additional Family Medical History / Comment(s): LYMPHOMA Sister(s) Family Medical History: Cancer Medications and Allergies Home Medications Medication Instructions Recorded Confirmed Type Aspirin EC [Ecotrin Low Dose] 81 mg PO DAILY #30 tablet. 10/06/13 06/24/22 Rx Atorvastatin [Lipitor] 40 mg PO DAILY 11/07/13 06/24/22 History lisinopriL [Zestril] 2.5 mg PO DAILY 07/24/14 06/24/22 History Pentoxifylline [TRENtal] 400 mg PO TID 02/09/18 06/24/22 History Gabapentin [Neurontin] 300 mg PO QID PRN 12/10/19 06/24/22 History Ibuprofen 200 mg PO BID 12/10/19 06/24/22 History Rivaroxaban [Xarelto] 20 mg PO DAILY 12/10/19 06/24/22 History carvediloL [Coreg] 12.5 mg PO BID 12/10/19 06/24/22 History Insulin NPH Hum/Reg Insulin Hm 50 unit SQ BID 12/12/19 06/24/22 History [Novolin 70-30 Flexpen] Loratadine 10 mg PO DAILY 03/11/22 06/24/22 History Acetaminophen Tab [Tylenol Tab] 1,000 mg PO Q6HR PRN 06/24/22 06/24/22 History Oxybutynin Chloride [Ditropan XL] 10 mg PO DAILY 06/24/22 06/24/22 History Phenazopyridine [Pyridium] 200 mg PO TID PRN 06/24/22 06/24/22 History Prevalite 1 scoop PO DAILY 06/24/22 06/24/22 History Spironolactone [Aldactone] 12.5 mg PO DAILY 06/24/22 06/24/22 History Tamsulosin HCl [Flomax] 0.4 mg PO DAILY 06/24/22 06/24/22 History metFORMIN HCL ER [Glucophage XR] 1,000 mg PO BID 06/24/22 06/24/22 History Allergies Allergy/AdvReac Type Severity Reaction Status Date / Time empagliflozin AdvReac Unknown joints ache Verified 06/24/22 18:04 [From Jardiance] Physical Exam Vitals: Vital Signs Temp Pulse Resp BP Pulse Ox 06/25/22 12:37 100.9 F H 06/25/22 12:02 98.4 F 06/25/22 10:41 101.3 F H 121 H 28 H 100/79 98 06/25/22 09:26 104 F H 06/25/22 08:50 105.9 F H 134 H 40 H 98 06/25/22 08:30 100.8 F H 06/25/22 08:00 98.2 F 128 H 20 127/62 100 06/25/22 07:39 100 06/25/22 07:00 98.3 F 123 H 20 127/62 100 06/25/22 06:21 98.5 F 06/25/22 06:00 117 H 20 117/73 66 L 06/25/22 05:45 115 H 20 116/65 92 L 06/25/22 05:30 123 H 20 109/65 95 06/25/22 05:15 125 H 19 151/73 95 06/25/22 05:00 101.7 F H 123 H 20 109/65 96 06/25/22 04:15 126 H 42 H 164/81 97 06/25/22 04:01 103 F H 06/25/22 04:00 129 H 42 H 160/98 92 L 06/25/22 03:50 46 H 06/25/22 03:30 130 H 39 H 165/69 93 L 06/25/22 03:04 129 H 28 H 165/69 96 06/25/22 03:02 129 H 39 H 165/69 96 06/25/22 02:58 126 H 37 H 158/69 98 06/25/22 02:56 126 H 37 H 158/69 98 06/25/22 02:52 125 H 34 H 158/69 92 L 06/25/22 02:51 125 H 34 H 158/69 92 L 06/25/22 02:48 126 H 34 H 158/69 95 06/25/22 02:47 126 H 34 H 158/69 95 06/25/22 02:40 128 H 36 H 158/69 96 06/25/22 02:38 128 H 35 H 158/69 94 L 06/25/22 02:36 128 H 35 H 158/69 94 L 06/25/22 01:00 118 H 16 119/62 100 06/25/22 00:00 111 H 14 103/42 97 06/24/22 22:00 104 H 11 L 115/86 06/24/22 21:14 103 H 22 115/86 06/24/22 21:00 103 H 20 92/58 06/24/22 20:30 105 H 18 92/58 96 06/24/22 20:00 109 H 18 94/59 97 06/24/22 19:30 106 H 15 109/70 97 06/24/22 19:00 106 H 13 109/70 100 06/24/22 18:30 103 H 24 06/24/22 18:00 111 H 22 06/24/22 17:30 116 H 06/24/22 17:00 123 H 06/24/22 16:30 133 H 12 130/67 06/24/22 16:00 137 H 8 L 115/83 98 06/24/22 15:55 137 H 30 H 06/24/22 15:36 99.6 F 140 H 18 105/65 94 L Intake and Output 06/24/22 06/25/22 06/25/22 22:59 06:59 14:59 Other: Weight 101.151 kg General appearance: The patient is alert, oriented, appears in no acute distress. Patient is currently on 4 L of O2 nasal cannula. Lethargic and encephalopathic Head exam was generally normal. There was no scleral icterus or corneal arcus. Mucous membranes were moist.. Neck: Supple without lymphadenopathy. Trachea midline. Heart: Cardiac exam revealed the PMI to be normally situated and sized. The rhythm was regular and no extrasystoles were noted during several minutes of auscultation. The first and second heart sounds were normal and physiologic splitting of the second heart sound was noted. There were no murmurs, rubs, clicks, or gallops. Lungs: Lungs were clear to auscultation and percussion, and with normal diaphragmatic excursion. No wheezes or rales were noted. Abdomen: Soft, nontender, nondistended with bowel sounds. No guarding or rigidity. Skin: No rashes. No jaundice. Extremities: Right [id number] amputation. Left lower extremity with edema, venous dermatitis and chronic wound to medial aspect of ankle. No active drainage is noted. Pulses in the lower extremity on the left is quite diminished. The extremity is warm. There is evidence of chronic venous stasis Neurological: No focal deficits. Awake and and arousable. Overall, is encephalopathic. Results - Laboratory Findings CBC and BMP: 06/25/22 03:03 06/25/22 03:03 ABG ABG pH 7.41 (7.35-7.45) 06/25/22 04:03 ABG pCO2 31 mmHg (35-45) L 06/25/22 04:03 ABG pO2 60 mmHg (83-108) L 06/25/22 04:03 ABG O2 Saturation 92.8 % (94-97) L 06/25/22 04:03 PT/INR, D-dimer PT 10.6 sec (9.0-12.0) 06/24/22 16:13 INR 1.0 (<1.2) 06/24/22 16:13 D-Dimer 3.97 mg/L FEU (<0.60) H 06/25/22 04:15 Abnormal lab findings: Abnormal Labs 06/24/22 06/24/22 06/24/22 16:13 16:13 16:13 RBC Hgb Hct RDW 17.3 H Plt Count Lymphocytes # 0.6 L APTT 17.7 L D-Dimer ABG pCO2 ABG pO2 ABG HCO3 ABG O2 Saturation Sodium Potassium Carbon Dioxide BUN Glucose POC Glucose (mg/dL) Plasma Lactic Acid Jeremiah Calcium Phosphorus Magnesium AST Troponin I C-Reactive Protein Total Protein Urine Protein 1+ H Urine Glucose (UA) Trace H Urine Ketones Trace H Hyaline Casts 9 H Urine Mucus Rare H 06/24/22 06/24/22 06/24/22 16:13 16:13 16:13 RBC Hgb Hct RDW Plt Count Lymphocytes # APTT D-Dimer ABG pCO2 ABG pO2 ABG HCO3 ABG O2 Saturation Sodium Potassium Carbon Dioxide 19 L BUN 23 H Glucose 282 H POC Glucose (mg/dL) Plasma Lactic Acid Jeremiah 5.4 H* Calcium Phosphorus 2.0 L Magnesium 1.4 L AST Troponin I 0.042 H* C-Reactive Protein Total Protein Urine Protein Urine Glucose (UA) Urine Ketones Hyaline Casts Urine Mucus 06/24/22 06/24/22 06/25/22 19:36 23:05 03:03 RBC 3.78 L Hgb 11.5 L Hct 34.7 L RDW 17.4 H Plt Count 129 L Lymphocytes # 0.3 L APTT D-Dimer ABG pCO2 ABG pO2 ABG HCO3 ABG O2 Saturation Sodium Potassium Carbon Dioxide BUN Glucose POC Glucose (mg/dL) Plasma Lactic Acid Jeremiah 3.1 H* 3.8 H* Calcium Phosphorus Magnesium AST Troponin I C-Reactive Protein Total Protein Urine Protein Urine Glucose (UA) Urine Ketones Hyaline Casts Urine Mucus 06/25/22 06/25/22 06/25/22 03:03 03:03 03:37 RBC Hgb Hct RDW Plt Count Lymphocytes # APTT D-Dimer ABG pCO2 ABG pO2 ABG HCO3 ABG O2 Saturation Sodium 133 L Potassium 5.3 H Carbon Dioxide 17 L BUN 23 H Glucose 208 H POC Glucose (mg/dL) 208 H Plasma Lactic Acid Jeremiah 3.7 H* Calcium 7.6 L Phosphorus 2.2 L Magnesium 1.0 L AST 134 H Troponin I C-Reactive Protein Total Protein 6.2 L Urine Protein Urine Glucose (UA) Urine Ketones Hyaline Casts Urine Mucus 06/25/22 06/25/22 06/25/22 04:03 04:15 08:48 RBC Hgb Hct RDW Plt Count Lymphocytes # APTT D-Dimer 3.97 H ABG pCO2 31 L ABG pO2 60 L ABG HCO3 19 L ABG O2 Saturation 92.8 L Sodium Potassium Carbon Dioxide BUN Glucose POC Glucose (mg/dL) Plasma Lactic Acid Jeremiah 2.8 H* Calcium Phosphorus Magnesium AST Troponin I C-Reactive Protein Total Protein Urine Protein Urine Glucose (UA) Urine Ketones Hyaline Casts Urine Mucus 06/25/22 06/25/22 06/25/22 08:48 09:17 10:32 RBC Hgb Hct RDW Plt Count Lymphocytes # APTT D-Dimer ABG pCO2 ABG pO2 ABG HCO3 ABG O2 Saturation Sodium Potassium Carbon Dioxide BUN Glucose POC Glucose (mg/dL) 191 H Plasma Lactic Acid Jeremiah Calcium Phosphorus Magnesium AST Troponin I 0.119 H* C-Reactive Protein 14.3 H Total Protein Urine Protein Urine Glucose (UA) Urine Ketones Hyaline Casts Urine Mucus 06/25/22 06/25/22 06/25/22 11:39 11:39 13:40 RBC Hgb Hct RDW Plt Count Lymphocytes # APTT D-Dimer ABG pCO2 ABG pO2 ABG HCO3 ABG O2 Saturation Sodium Potassium Carbon Dioxide BUN Glucose POC Glucose (mg/dL) 177 H Plasma Lactic Acid Jeremiah 3.6 H* Calcium Phosphorus Magnesium AST Troponin I 0.112 H* C-Reactive Protein Total Protein Urine Protein Urine Glucose (UA) Urine Ketones Hyaline Casts Urine Mucus - Diagnostic Findings Chest x-ray: image reviewed Assessment and Plan Plan: Acute febrile illness/sepsis currently under investigation. The exact source could be abdominal as the patient's CAT scan of the abdomen showed evidence of colitis without diverticulitis. The gallbladder is also distended and there is evidence of chronic cystitis probably related to radiation therapy to the patient received for bladder cancer. Other sources could be soft tissue/skin. The patient is a chronic wound in the left foot malleolus which is essentially dry and there is no active drainage at this point in time. No evidence of pneumonia. 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 Bladder cancer post-chemo and radiation therapy Plan Continue fluid resuscitation and the patient will be started on a bicarb i nfusion at the rate of 150 mL an hour of sodium bicarb infusion Patient has already received a total of 4 L of normal saline Continue Zosyn and vancomycin combination Obtain blood cultures Obtain urine cultures Obtain a vascular surgery consultation regarding left lower extremity vascular insufficiency and chronic wound Obtain a general surgery consultation regarding colitis Admit this patient to the intensive care unit Continue Xarelto Oxygen to be titrated to maintain a saturation above 90% Condition is critical and we'll continue to follow Time with Patient: Greater than 30
--- NOTE | 2022-06-25 14:54 | P.PCN ---
Date of Procedure: 06/25/22 Preoperative Diagnosis: Sepsis Postoperative Diagnosis: Sepsis Procedure(s) Performed: Central line Anesthesia: local Surgeon: Randell Dailey Estimated Blood Loss (ml): 0 Pathology: none sent Condition: critical Disposition: ICU Operative Findings: Indication: Hemodynamic monitoring/Intravenous access. A time-out was completed verifying correct patient, procedure, site, positioning, and implant(s) or special equipment if applicable. The patient was placed in a dependent position appropriate for central line placement based on the vein to be cannulated. The patients left neck was prepped and draped in sterile fashion. 1% Lidocaine was used to anesthetize the surrounding skin area. A triple lumen 9F Cordis catheter was introduced into the left IJ vein using Seldinger technique. The catheter was threaded smoothly over the guide wire and appropriate blood return was obtained. Each lumen of the catheter was evacuated of air and flushed with sterile saline. The catheter was then sutured in place to the skin and a sterile dressing applied. Perfusion to the extremity distal to the point of catheter insertion was checked and found to be adequate. The patient tolerated the procedure well and there were no complications.
[2022-06-25] MEDS: HYDROmorphone 1 MG/ML 1 ML SYRINGE IVP PRN ×2 (15:49→19:56)
[2022-06-25 16:59] LABS: Calcium 7.1 mg/dL (8.4-10.2); Magnesium 1.2 mg/dL (1.6-2.3); Potassium 4.9 mmol/L (3.5-5.1)
[2022-06-25] MEDS: GABAPENTIN 300 MG CAP PO PRN (17:01)
[2022-06-25] MEDS ORDERED: Magnesium Replacement Protocol 1 EACH MISC MISCELLANE PRN (17:26)
[2022-06-25 17:40] LABS: Glucose,Whole Blood 259 mg/dL (70-110)
[2022-06-25] MEDS ORDERED: DEXTROSE 50% SYRINGE 50 ML IVP PRN ×2 (18:59)
[2022-06-25 19:54] LABS: Glucose,Whole Blood 319 mg/dL (70-110)
[2022-06-25] MEDS: INSULIN ASPART (NovoLOG) 100 UNIT/ML VIAL SQ SCH ×2 (19:55→23:58)
[2022-06-25] MEDS: carvediloL 6.25 MG TAB PO SCH (20:06)
--- NOTE | 2022-06-25 21:51 | P.CONS ---
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 his left foot along the malleolus area patient with recent diagnosis of bladder cancer and has completed radiation and chemotherapy about 6 weeks ago patient presenting to the ER yesterday afternoon for evaluation of dizziness lightheadedness diaphoresis nausea vomiting and heart racing symptom has been going on for few days before presentation to the hospital patient on presentation to the hospital did have a fever of 103 degrees for right subsequently did spike up to 105.9 degrees for right patient was tachycardic tachypneic mildly hypoxic requiring supplemental oxygen currently on 2 L nasal cannula patient was hypotensive requiring multiple fluid boluses pat ient did have a normal white count of lactic acid was elevated did have elevated BUN and creatinine AST was mildly elevated urine has been negative influenza RSV and COVID testing was negative patient did have a CT of abdominal pelvis with evidence of sigmoid colon wall thickening scattered colonic diverticuli without diverticulitis concerning for possible colitis contracted gallbladder with marke d thickening consistent with cystitis patient was started on vancomycin and Zosyn has been admitted to ICU infectious disease was consulted for further management of antibiotic therapy most information has been obtained from review the chart patient is an mildly very good historian has been complaining of not feeling well and diaphoresis mostly no chest pain some shortness of breath no significant cough or sputum production has been complaining of nausea vomiting but not specifically no diarrhea or blood in the stool no urinary symptoms did have some pain in his left lower extremity wound area but no foul-smelling drainage patient mention has been taking care of the wound himself for many mo nths however unable to read exactly what he has been using Review of Systems Positive point and negatives has been mentioned in the HPI, complete review of systems was performed and all other systems are negative Past Medical History Past Medical History: Cancer, Diabetes Mellitus, Deep Vein Thrombosis (DVT), Hyperlipidemia, Hypertension, Myocardial Infarction (MO), Sleep Apnea/CPAP/BIPAP, Vascular Disorder Additional Past Medical History / Comment(s): HX OF DVT'S 2013 (legs & arm)., PAD, Hx DIABETIC ULCERS, LEFT ANKLE WOUND THAT IS HEALING, HX OF SLEEP APNEA(RESOLVED WITH WT LOSS)., RIGHT AKA , WEARS PROSTHESIS. bladder cancer get injections to his eyes for diabetic retinopathy approx q 6 weeks Last Myocardial Infarction Date:: 2001 History of Any Multi-Drug Resistant Organisms: None Reported Past Surgical History: Bladder Surgery, Heart Catheterization With Stent, Hernia Repair Additional Past Surgical History / Comment(s): right FEMPOP BYPASS by Dr. Orozco on 11/15/13, STENTS TO MARIANELA GROINS DONE AT [facility] in 2006, RIGHT ABOVE KNEE AMPUTATION 11/2013. AMPUTATION 4TH TOES LT FOOT, "BLADDER SCRAPING" X2 AT [facility], URETHRAL STENT PLACMENT AND REMOVAL. amputation revision feb 2021 Past Anesthesia/Blood Transfusion Reactions: No Reported Reaction Additional Past Anesthesia/Blood Transfusion Reaction / Comm: PT STATES HE FELT REALLY "POORLY" AFTER ONE OF HIS RECENT SURGERIES AT [facility] Date of Last Stent Placement:: 2001 & 2006 Past Psychological History: No Psychological Hx Reported Smoking Status: Former smoker Past Alcohol Use History: None Reported Past Drug Use History: None Reported - Past Family History Father Family Medical History: CVA/TIA, Diabetes Mellitus, Vascular Disorder Additional Family Medical History / Comment(s): leg amputation, in long-term d/t diabetic cx. Mother Family Medical History: Cancer, Coronary Artery Disease (CAD) Additional Family Medical History / Comment(s): LYMPHOMA Sister(s) Family Medical History: Cancer Medications and Allergies Home Medications Medication Instructions Recorded Confirmed Type Aspirin EC [Ecotrin Low Dose] 81 mg PO DAILY #30 tablet. 10/06/13 06/24/22 Rx Atorvastatin [Lipitor] 40 mg PO DAILY 11/07/13 06/24/22 History lisinopriL [Zestril] 2.5 mg PO DAILY 07/24/14 06/24/22 History Pentoxifylline [TRENtal] 400 mg PO TID 02/09/18 06/24/22 History Gabapentin [Neurontin] 300 mg PO QID PRN 12/10/19 06/24/22 History Ibuprofen 200 mg PO BID 12/10/19 06/24/22 History Rivaroxaban [Xarelto] 20 mg PO DAILY 12/10/19 06/24/22 History carvediloL [Coreg] 12.5 mg PO BID 12/10/19 06/24/22 History Insulin NPH Hum/Reg Insulin Hm 50 unit SQ BID 12/12/19 06/24/22 History [Novolin 70-30 Flexpen] Loratadine 10 mg PO DAILY 03/11/22 06/24/22 History Acetaminophen Tab [Tylenol Tab] 1,000 mg PO Q6HR PRN 06/24/22 06/24/22 History Phenazopyridine [Pyridium] 200 mg PO TID PRN 06/24/22 06/24/22 History Prevalite 1 scoop PO DAILY 06/24/22 06/24/22 History Spironolactone [Aldactone] 12.5 mg PO DAILY 06/24/22 06/24/22 History Tamsulosin HCl [Flomax] 0.4 mg PO DAILY 06/24/22 06/24/22 History metFORMIN HCL ER [Glucophage XR] 1,000 mg PO BID 06/24/22 06/24/22 History oxyBUTYnin chloride [Ditropan XL] 10 mg PO DAILY 06/24/22 06/24/22 History Allergies Allergy/AdvReac Type Severity Reaction Status Date / Time empagliflozin AdvReac Unknown joints ache Verified 06/24/22 18:04 [From Jardiance] Physical Exam Vitals: Vital Signs Temp Pulse Resp BP Pulse Ox 06/25/22 09:26 104 F H 06/25/22 08:50 105.9 F H 134 H 40 H 98 06/25/22 08:30 100.8 F H 06/25/22 08:00 98.2 F 128 H 20 127/62 100 06/25/22 07:39 100 06/25/22 07:00 98.3 F 123 H 20 127/62 100 06/25/22 06:21 98.5 F 06/25/22 06:00 117 H 20 117/73 66 L 06/25/22 05:45 115 H 20 116/65 92 L 06/25/22 05:30 123 H 20 109/65 95 06/25/22 05:15 125 H 19 151/73 95 06/25/22 05:00 101.7 F H 123 H 20 109/65 96 06/25/22 04:15 126 H 42 H 164/81 97 06/25/22 04:01 103 F H 06/25/22 04:00 129 H 42 H 160/98 92 L 06/25/22 03:50 46 H 06/25/22 03:30 130 H 39 H 165/69 93 L 06/25/22 03:04 129 H 28 H 165/69 96 06/25/22 03:02 129 H 39 H 165/69 96 06/25/22 02:58 126 H 37 H 158/69 98 06/25/22 02:56 126 H 37 H 158/69 98 06/25/22 02:52 125 H 34 H 158/69 92 L 06/25/22 02:51 125 H 34 H 158/69 92 L 06/25/22 02:48 126 H 34 H 158/69 95 06/25/22 02:47 126 H 34 H 158/69 95 06/25/22 02:40 128 H 36 H 158/69 96 06/25/22 02:38 128 H 35 H 158/69 94 L 06/25/22 02:36 128 H 35 H 158/69 94 L 06/25/22 01:00 118 H 16 119/62 100 06/25/22 00:00 111 H 14 103/42 97 06/24/22 22:00 104 H 11 L 115/86 06/24/22 21:14 103 H 22 115/86 06/24/22 21:00 103 H 20 92/58 06/24/22 20:30 105 H 18 92/58 96 06/24/22 20:00 109 H 18 94/59 97 06/24/22 19:30 106 H 15 109/70 97 06/24/22 19:00 106 H 13 109/70 100 06/24/22 18:30 103 H 24 06/24/22 18:00 111 H 22 06/24/22 17:30 116 H 06/24/22 17:00 123 H 06/24/22 16:30 133 H 12 130/67 06/24/22 16:00 137 H 8 L 115/83 98 06/24/22 15:55 137 H 30 H 06/24/22 15:36 99.6 F 140 H 18 105/65 94 L Intake and Output 06/24/22 06/25/22 06/25/22 22:59 06:59 14:59 Other: Weight 101.151 kg GENERAL DESCRIPTION: Elderly male lying in bed, no distress. No tachypnea or accessory muscle of respiration use. HEENT: Shows Pallor , no scleral icterus. Oral mucous membrane is dry. NECK: Trachea central, no thyromegaly. LUNGS: Unlabored breathing. Decreased breath sounds at the Base HEART: S1, S2, regular rate and rhythm. No loud murmur ABDOMEN: Soft, mild distention but no significant tenderness EXTREMITIES: Right knee Wound is healed left medial ankle. He did have a wound which is deep and no significant surrounding redness, or foul-smelling drainage SKIN: No rash, no masses palpable. NEUROLOGICAL: The patient is awake, alert, oriented x3, mood and affect normal. Results CBC & Chem 7: 06/26/22 03:50 06/26/22 03:50 Labs: Abnormal Lab Results - Last 24 Hours (Table) 06/24/22 06/24/22 06/24/22 Range/Units 16:13 16:13 16:13 RBC (4.30-5.90) m/uL Hgb (13.0-17.5) gm/dL Hct (39.0-53.0) % RDW 17.3 H (11.5-15.5) % Plt Count (150-450) k/uL Lymphocytes # 0.6 L (1.0-4.8) k/uL APTT 17.7 L (22.0-30.0) sec D-Dimer (<0.60) mg/L FEU ABG pCO2 (35-45) mmHg ABG pO2 (83-108) mmHg ABG HCO3 (21-25) mmol/L ABG O2 Saturation (94-97) % Sodium (137-145) mmol/L Potassium (3.5-5.1) mmol/L Carbon Dioxide (22-30) mmol/L BUN (9-20) mg/dL Glucose (74-99) mg/dL POC Glucose (mg/dL) (70-110) mg/dL Plasma Lactic Acid Jeremiah (0.7-2.0) mmol/L Calcium (8.4-10.2) mg/dL Phosphorus (2.5-4.5) mg/dL Magnesium (1.6-2.3) mg/dL AST (17-59) U/L Troponin I (0.000-0.034) ng/mL Total Protein (6.3-8.2) g/dL Urine Protein 1+ H (Negative) Urine Glucose (UA) Trace H (Negative) Urine Ketones Trace H (Negative) Hyaline Casts 9 H (0-2) /lpf Urine Mucus Rare H (None) /hpf 06/24/22 06/24/22 06/24/22 Range/Units 16:13 16:13 16:13 RBC (4.30-5.90) m/uL Hgb (13.0-17.5) gm/dL Hct (39.0-53.0) % RDW (11.5-15.5) % Plt Count (150-450) k/uL Lymphocytes # (1.0-4.8) k/uL APTT (22.0-30.0) sec D-Dimer (<0.60) mg/L FEU ABG pCO2 (35-45) mmHg ABG pO2 (83-108) mmHg ABG HCO3 (21-25) mmol/L ABG O2 Saturation (94-97) % Sodium (137-145) mmol/L Potassium (3.5-5.1) mmol/L Carbon Dioxide 19 L (22-30) mmol/L BUN 23 H (9-20) mg/dL Glucose 282 H (74-99) mg/dL POC Glucose (mg/dL) (70-110) mg/dL Plasma Lactic Acid Jeremiah 5.4 H* (0.7-2.0) mmol/L Calcium (8.4-10.2) mg/dL Phosphorus 2.0 L (2.5-4.5) mg/dL Magnesium 1.4 L (1.6-2.3) mg/dL AST (17-59) U/L Troponin I 0.042 H* (0.000-0.034) ng/mL Total Protein (6.3-8.2) g/dL Urine Protein (Negative) Urine Glucose (UA) (Negative) Urine Ketones (Negative) Hyaline Casts (0-2) /lpf Urine Mucus (None) /hpf 06/24/22 06/24/22 06/25/22 Range/Units 19:36 23:05 03:03 RBC 3.78 L (4.30-5.90) m/uL Hgb 11.5 L (13.0-17.5) gm/dL Hct 34.7 L (39.0-53.0) % RDW 17.4 H (11.5-15.5) % Plt Count 129 L (150-450) k/uL Lymphocytes # 0.3 L (1.0-4.8) k/uL APTT (22.0-30.0) sec D-Dimer (<0.60) mg/L FEU ABG pCO2 (35-45) mmHg ABG pO2 (83-108) mmHg ABG HCO3 (21-25) mmol/L ABG O2 Saturation (94-97) % Sodium (137-145) mmol/L Potassium (3.5-5.1) mmol/L Carbon Dioxide (22-30) mmol/L BUN (9-20) mg/dL Glucose (74-99) mg/dL POC Glucose (mg/dL) (70-110) mg/dL Plasma Lactic Acid Jeremiah 3.1 H* 3.8 H* (0.7-2.0) mmol/L Calcium (8.4-10.2) mg/dL Phosphorus (2.5-4.5) mg/dL Magnesium (1.6-2.3) mg/dL AST (17-59) U/L Troponin I (0.000-0.034) ng/mL Total Protein (6.3-8.2) g/dL Urine Protein (Negative) Urine Glucose (UA) (Negative) Urine Ketones (Negative) Hyaline Casts (0-2) /lpf Urine Mucus (None) /hpf 06/25/22 06/25/22 06/25/22 Range/Units 03:03 03:03 03:37 RBC (4.30-5.90) m/uL Hgb (13.0-17.5) gm/dL Hct (39.0-53.0) % RDW (11.5-15.5) % Plt Count (150-450) k/uL Lymphocytes # (1.0-4.8) k/uL APTT (22.0-30.0) sec D-Dimer (<0.60) mg/L FEU ABG pCO2 (35-45) mmHg ABG pO2 (83-108) mmHg ABG HCO3 (21-25) mmol/L ABG O2 Saturation (94-97) % Sodium 133 L (137-145) mmol/L Potassium 5.3 H (3.5-5.1) mmol/L Carbon Dioxide 17 L (22-30) mmol/L BUN 23 H (9-20) mg/dL Glucose 208 H (74-99) mg/dL POC Glucose (mg/dL) 208 H (70-110) mg/dL Plasma Lactic Acid Jeremiah 3.7 H* (0.7-2.0) mmol/L Calcium 7.6 L (8.4-10.2) mg/dL Phosphorus 2.2 L (2.5-4.5) mg/dL Magnesium 1.0 L (1.6-2.3) mg/dL AST 134 H (17-59) U/L Troponin I (0.000-0.034) ng/mL Total Protein 6.2 L (6.3-8.2) g/dL Urine Protein (Negative) Urine Glucose (UA) (Negative) Urine Ketones (Negative) Hyaline Casts (0-2) /lpf Urine Mucus (None) /hpf 06/25/22 06/25/22 06/25/22 Range/Units 04:03 04:15 08:48 RBC (4.30-5.90) m/uL Hgb (13.0-17.5) gm/dL Hct (39.0-53.0) % RDW (11.5-15.5) % Plt Count (150-450) k/uL Lymphocytes # (1.0-4.8) k/uL APTT (22.0-30.0) sec D-Dimer 3.97 H (<0.60) mg/L FEU ABG pCO2 31 L (35-45) mmHg ABG pO2 60 L (83-108) mmHg ABG HCO3 19 L (21-25) mmol/L ABG O2 Saturation 92.8 L (94-97) % Sodium (137-145) mmol/L Potassium (3.5-5.1) mmol/L Carbon Dioxide (22-30) mmol/L BUN (9-20) mg/dL Glucose (74-99) mg/dL POC Glucose (mg/dL) (70-110) mg/dL Plasma Lactic Acid Jeremiah 2.8 H* (0.7-2.0) mmol/L Calcium (8.4-10.2) mg/dL Phosphorus (2.5-4.5) mg/dL Magnesium (1.6-2.3) mg/dL AST (17-59) U/L Troponin I (0.000-0.034) ng/mL Total Protein (6.3-8.2) g/dL Urine Protein (Negative) Urine Glucose (UA) (Negative) Urine Ketones (Negative) Hyaline Casts (0-2) /lpf Urine Mucus (None) /hpf 06/25/22 06/25/22 Range/Units 08:48 09:17 RBC (4.30-5.90) m/uL Hgb (13.0-17.5) gm/dL Hct (39.0-53.0) % RDW (11.5-15.5) % Plt Count (150-450) k/uL Lymphocytes # (1.0-4.8) k/uL APTT (22.0-30.0) sec D-Dimer (<0.60) mg/L FEU ABG pCO2 (35-45) mmHg ABG pO2 (83-108) mmHg ABG HCO3 (21-25) mmol/L ABG O2 Saturation (94-97) % Sodium (137-145) mmol/L Potassium (3.5-5.1) mmol/L Carbon Dioxide (22-30) mmol/L BUN (9-20) mg/dL Glucose (74-99) mg/dL POC Glucose (mg/dL) 191 H (70-110) mg/dL Plasma Lactic Acid Jeremiah (0.7-2.0) mmol/L Calcium (8.4-10.2) mg/dL Phosphorus (2.5-4.5) mg/dL Magnesium (1.6-2.3) mg/dL AST (17-59) U/L Troponin I 0.119 H* (0.000-0.034) ng/mL Total Protein (6.3-8.2) g/dL Urine Protein (Negative) Urine Glucose (UA) (Negative) Urine Ketones (Negative) Hyaline Casts (0-2) /lpf Urine Mucus (None) /hpf Assessment and Plan (1) Sepsis Status: Acute Code(s): A41.9 - SEPSIS, UNSPECIFIED ORGANISM SNOMED Code(s): 08222354 Plan: 1patient was in the hospital with sepsis in this patient did have fever tachycardia elevated lactic acid and hypotension requiring multiple fluid boluses symptom has been mostly diaphoresis nausea vomiting some abdominal distention with abnormal CT abdominal pelvis concerning for possible abdominal source with a question of colitis versus cholecystitis and need to cover for the enteric gram-negative to be the likely pathogen, patient also have a chronic nonhealing wound to the left lower extremity however no significant cellulitis on Examination being the possible source less likely meningitis occluded 2-patient with borderline kidney function high risk of nephrotoxicity 3-patient to continue with Zosyn however switch vancomycin to daptomycin to decrease risk of nephrotoxicity while waiting for the culture to finalize and work-up to be completed We will follow on clinical condition and cultures to further adjust medication if needed Thank you for this consultation we will follow the patient along with you Time with Patient: Greater than 30
[2022-06-25 23:50] LABS: Glucose,Whole Blood 387 mg/dL (70-110)
--- NOTE | 2022-06-26 01:32 | CA ---
Transthoracic Echo Report Name: Kurt Yeager Age: 66 Gender: M : 1955 Exam Date: 06/25/2022 11:45 Exam Location: [facility] Ht (in): 72 Wt (lb): 223 Ordering Physician: Artemio Stacy MD Attending/Referring Phys: [id number], Tawanna Title One Teacher Damaso Billingsley RDCS Procedure CPT: Indications: tachycardia Cardiac Hx: HTN; CAD; Paripheral arteriopathy; DM; Technical Quality: Fair Contrast 1: Total Dose (mL): Contrast 2: Total Dose (mL): MEASUREMENTS (Male / Female) Normal Values 2D ECHO LV Diastolic Diameter PLAX 5.0 cm 4.2 - 5.9 / 3.9 - 5.3 cm LV Systolic Diameter PLAX 3.9 cm LV Fractional Shortening PLAX 23.5 % IVS Diastolic Thickness 1.5 cm 0.6 - 1.0 / 0.6 - 0.9 cm IVS Systolic Thickness 1.8 cm LVPW Diastolic Thickness 1.7 cm 0.6 - 1.0 / 0.6 - 0.9 cm LV Relative Wall Thickness 0.6 RV Internal Dim ED PLAX 3.8 cm LVOT Diameter 2.4 cm LA Systolic Diameter LX 2.8 cm 3.0 - 4.0 / 2.7 - 3.8 cm LV Diastolic Volume MOD BP 136.4 cm??? 67 - 155 / 56 - 104 cm??? LV Systolic Volume MOD BP 75.2 cm??? 22 - 58 / 19 - 49 cm??? LV Ejection Fraction MOD BP 44.8 % >= 55 % LV Stroke Volume MOD BP 61.2 cm??? LV Diastolic Volume MOD 4C 151.0 cm??? LV Systolic Volume MOD 4C 86.7 cm??? LV Ejection Fraction MOD 4C 42.6 % LV Stroke Volume MOD 4C 64.3 cm??? LV Diastolic Length 4C 8.6 cm LV Systolic Length 4C 7.5 cm LV Diastolic Volume MOD 2C 114.4 cm??? LV Systolic Volume MOD 2C 64.3 cm??? LV Ejection Fraction MOD 2C 43.8 % LV Stroke Volume MOD 2C 50.1 cm??? LV Diastolic Length 2C 7.9 cm LV Systolic Length 2C 6.9 cm Ascending Aorta Diameter 3.2 cm M-MODE Aortic Root Diameter MM 4.0 cm LA Systolic Diameter MM 3.0 cm LA Ao Ratio MM 0.7 MV E Point Septal Separation 1.9 cm AV Cusp Separation MM 2.0 cm DOPPLER AV Peak Velocity 119.2 cm/s AV Peak Gradient 5.7 mmHg MV Peak Velocity 86.9 cm/s MV Peak Gradient 3.0 mmHg MV Mean Velocity 65.2 cm/s MV Mean Gradient 1.8 mmHg MV Velocity Time Integral 15.9 cm MV Deceleration [place] 622.3 cm/s??? MR Peak Velocity 354.6 cm/s MR Peak Gradient 50.3 mmHg MR Mean Velocity 272.5 cm/s MR Mean Gradient 34.2 mmHg MR Velocity Time Integral 93.0 cm Mitral E Point Velocity 62.4 cm/s Mitral A Point Velocity 91.4 cm/s Mitral E to A Ratio 0.7 MV Deceleration Time 100.3 ms MV E' Velocity 8.5 cm/s Mitral E to MV E' Ratio 7.4 TR Peak Velocity 125.7 cm/s TR Peak Gradient 6.3 mmHg Right Ventricular Systolic Press 16.3 mmHg PV Peak Velocity 70.8 cm/s PV Peak Gradient 2.0 mmHg FINDINGS Left Ventricle Left ventricular ejection fraction is estimated at 30 %. Mild left ventricular dilatation. Mild concentric left ventricular hypertrophy. Grade 1 diastolic dysfunction. Hyperdynamic left ventricular systolic function. Mildly reduced global left ventricular systolic function. [place] hypokinetic. Right Ventricle Mild right ventricular dilatation. Reduced right ventricular global systolic function. Right Atrium Mild right atrial dilatation. Left Atrium Normal left atrial size. Mitral Valve Mild thickening/calcification of the anterior mitral valve leaflet. Mild thickening/calcification of the posterior mitral valve leaflet. Mild mitral annular calcification. Moderate mitral regurgitation. Aortic Valve Trileaflet aortic valve. No aortic valve stenosis or regurgitation. Tricuspid Valve Trace to mild tricuspid regurgitation. Pulmonic Valve Pulmonic valve not well visualized. Trace to mild pulmonic regurgitation. Pericardium Normal pericardium. No pericardial effusion. Aorta Aorta at the level of the sinuses of valsalva (root) normal. CONCLUSIONS Left ventricular ejection fraction 30% Mild increased left ventricular wall thickening Mild mitral calcification Moderate mitral regurgitation Trace to mild tricuspid regurgitation Previewed by: Dr. Timbo Hall DO (Electronically Signed) Final Date: 26 Jun 2022 01:31
[2022-06-26] MEDS ORDERED: INSULIN REGULAR 100 UNIT in SODIUM CHLORIDE 0.9% 100 ML IV SCH (02:00)
[2022-06-26 02:04] LABS: Glucose,Whole Blood 283 mg/dL (70-110)
[2022-06-26] MEDS: ACETAMINOPHEN IV (For NPO) 1,000 MG in EMPTY BAG 1 BAG IVPB PRN (03:06)
[2022-06-26 03:12] LABS: Glucose,Whole Blood 299 mg/dL (70-110)
[2022-06-26] MEDS: HYDROmorphone 1 MG/ML 1 ML SYRINGE IVP PRN ×2 (03:27→08:31)
[2022-06-26 04:20] LABS: Glucose,Whole Blood 303 mg/dL (70-110)
[2022-06-26 04:23] LABS: Anisocytosis Slight; HCT 30.1 % (39.0-53.0); MCH 30.2 pg (25.0-35.0); MCHC 33.2 g/dL (31.0-37.0); MCV 91.1 fL (80.0-100.0); Mean Platelet Volume 8.2; Platelet Count 116 k/uL (150-450); Poikilocytosis Slight; RDW 17.6 % (11.5-15.5); WBC 7.5 k/uL (3.8-10.6)
[2022-06-26 04:28] LABS: Magnesium 2.4 mg/dL (1.6-2.3); Potassium 3.9 mmol/L (3.5-5.1)
[2022-06-26 04:51] LABS: Glucose,Whole Blood 272 mg/dL (70-110)
[2022-06-26 04:59] LABS: Band Neutrophils % 54 %; Lymphocytes # (M) 0.23 k/uL (1.0-4.8); Monocytes # (M) 0.38 k/uL (0-1.0); Neutrophils % (M) 38 %; Nucleated Red Blood Cells 0 /100 WBC (0-0); Total Cells Counted 200
[2022-06-26 05:00] LABS: Toxic Granulation Present
[2022-06-26] MEDS: DEXTROSE 5% IN WATER 1,000 ML with SODIUM BICARB (1 MEQ/ML) 150 ML IV SCH (05:19)
[2022-06-26 05:22] LABS: Calcium 6.3 mg/dL (8.4-10.2)
[2022-06-26 06:02] LABS: Glucose,Whole Blood 222 mg/dL (70-110)
[2022-06-26 07:05] LABS: Glucose,Whole Blood 224 mg/dL (70-110)
--- NOTE | 2022-06-26 08:11 | P.PN ---
Subjective Progress Note Date: 06/26/22 66-year-old male patient, extensive medical problems and comorbidities, came in to the emergency department yesterday complaining of generalized weakness, dizziness, lightheadedness, diaphoresis, nausea, fever and emesis. At the time of his emergency evaluation, the patient was quite ill and septic looking. He was still febrile. He was spiking a temperature of 105.9. He was started on IV antibiotics and he was given a combination of Zosyn and vancomycin. Cultures were sent. He was given a total of 4 L of IV fluid and following that the patient was moved to the intensive care for further evaluation. The patient has multiple comorbidities as mentioned. The patient has coronary artery disease and severe peripheral vascular disease and the patient has undergone aort obifemoral bypass surgery many years back. 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 There is also chronic ulceration of the tip of his great toe. He has chronic DVTs of the lower extremity and the patient has been maintained on anticoagulation with Xarelto. Patient has hypertension, hyperlipidemia and recent diagnosis of bladder cancer and he was treated with chemotherapy and radiation therapy which she completed approximately 6 weeks ago and I believe this was offered to him through [facility]. The patient was moved to the intensive care unit and he was quite lethargic. He was following commands. He was maintaining his own pressure.. He was normotensive and tachycardic. The WBC count is at 5.6 with a hemoglobin of 11.5 and a platelet count of 129. His sodium level is at 133 with a potassium level of 5.3. BUN is 23 with a creatinine of 1.25 and a serum bicarb is at 17 with an anion gap of 13. Troponins were 0.04 and 0.112 respectively 2. UA showed +1 protein, 2 WBCs. Immediately a triple-lumen catheter was inserted in the patient's was given a chest x-ray that showed interval placement of a left IJ triple-lumen catheter and there was no acute pulmonary abnormalities noted. Doppler of the lower oximetry showed chronic deep vein thrombosis involving left lower extremity. CAT scan of the abdomen and pelvis showed sigmoid colon wall thickening consistent with colitis. There was also scattered colonic diverticuli without focal changes to suggest diverticulitis. The gallbladder was contracted with marked thickening consistent with cholecystitis. There was a well distended gallbladder without any gallstones. The patient also had a cardiac vascular bypass graft. The CAT scan of the brain was unremarkable On today's evaluation of 06/26/2022, the patient remains encephalopathic due to his underlying sepsis. He is still arousable yet he cannot hold a full conversation. He is still having episodes of fever with a T-max of 101.8 from this morning. Hemodynamically, he remained stable. Is a bicarb infusion. Most recent BP is 114/75. He is on 4 L of Oxymizer nasal cannula with a pulse ox of 95%. He was given aggressive fluid resuscitation and antibiotics and he remains on a combination of Zosyn and Flagyl and vancomycin The patient had blood cultures sent and that is also still pending for now. Abdomen is soft. A triple-lumen catheter was inserted in his left IJ. This was done without any complications. The chest x-ray showed no evidence of any pneumonia. His left lower extremity needs to be evaluated by vascular surgery. There is areas of blistering and significant bluish/dark discoloration involving the anterior aspect of the left foot going to the sole of the foot with vesicular formation. There is also a dry ulcer over the medial malleolus. There is no active drainage. It however, there is a foul smell emanating from that left lower extremity. Pulses are not obtainable in the left foot, he has a weak popliteal Doppler signal. His pro calcitonin level was quite elevated at 35.8. On today's blood work, the white cell count is at 7.5, hemoglobin is at panel with a platelet count of 116. BUN is 24 with a creatinine of 1.3. Lactic acid levels are still elevated although somewhat improved compared to yesterday. It is currently down to 2.6. BUN is 24 with a creatinine of 1.3. Serum bicarb is up to 22. The serum albumin is at 3.7. Calcium levels have been low at 6.3. In terms of blood sugar control, the patient is receiving insulin drip and this is running at 11 units an hour. Awaiting further input from consultants including vascular surgery and hematology oncology. Objective - Vital Signs Vital signs: Vital Signs Temp 101.3 F H 06/26/22 04:30 Pulse 108 H 06/26/22 07:00 Resp 29 H 06/26/22 07:00 BP 114/75 06/26/22 07:00 Pulse Ox 95 06/26/22 07:00 FiO2 50 06/26/22 04:00 Intake & Output 06/25/22 06/26/22 06/26/22 18:59 06:59 18:59 Intake Total 1320 2623.308 161.025 Output Total 710 955 50 Balance 610 1668.308 111.025 Weight 102.3 kg Intake: IV 1320 2600 150 ACETAMINOPHEN IV (For NPO 100 100 ) 1,000 mg In Empty Bag 1 bag @ 400 mls/hr IVPB ONCE ONE Rx#:[id number] Dextrose 5% in Water 1, 450 1800 150 000 ml @ 150 mls/hr IV . Q7H40M SHASHI with Sodium Bicarb (1 Meq/ml) 150 ml Rx#:[id number] Invasive Line 1 20 20 Invasive Line 2 30 60 Invasive Line 3 20 20 Magnesium Sulfate-D5w Pmx 400 1 gm In Dextrose/Water 1 100ml.bag @ 100 mls/hr IVPB Q1H [facility] Rx#: [id number] Piperacillin-Tazobactam 3 100 100 .375 gm In Sodium Chloride 0.9% 100 ml @ 25 mls/hr IVPB Q8HR [facility] Rx# :[id number] Vancomycin 1,750 mg In 500 Sodium Chloride 0.9% 500 ml 500 ml @ 167 mls/hr IVPB Q12H [facility] Rx#: [id number] metroNIDAZOLE-NS PMX 500 100 100 mg In Saline 1 100ml.bag @ 100 mls/hr IVPB Q8HR [facility] Rx#:[id number] Intake, IV Titration 23.308 11.025 Amount Insulin Regular 100 unit 23.308 11.025 In Sodium Chloride 0.9% 100 ml @ Titrate IV .Q0M [facility] Rx#:[id number] Oral 0 Output: Urine 710 955 50 Other: Voiding Method Indwelling Catheter Indwelling Catheter # Bowel Movements 1 - Exam General appearance: The patient is alert, oriented, appears in no acute distress. Patient is currently on 4 L of O2 nasal cannula. Lethargic and encephalopathic Head exam was generally normal. There was no scleral icterus or corneal arcus. Mucous membranes were moist.. Neck: Supple without lymphadenopathy. Trachea midline. Heart: Cardiac exam revealed the PMI to be normally situated and sized. The rhythm was regular and no extrasystoles were noted during several minutes of auscultation. The first and second heart sounds were normal and physiologic splitting of the second heart sound was noted. There were no murmurs, rubs, clicks, or gallops. Lungs: Lungs were clear to auscultation and percussion, and with normal diaphragmatic excursion. No wheezes or rales were noted. Abdomen: Soft, nontender, nondistended with bowel sounds. No guarding or rigidity. Skin: No rashes. No jaundice. Extremities: Right [id number] amputation. Left lower extremity with edema, venous dermatitis and chronic wound to medial aspect of ankle. No active drainage is noted. Pulses in the lower extremity on the left is quite diminished. The extremity is warm. There is evidence of chronic venous stasis, there is a foul-smelling originating from the left foot. The ulcer is non- draining. Nevertheless, there is a vesicle/blister formation over the anterior aspect of the left foot extending to the sole of his foot with fluid collection. There is also a bluish discoloration involving the left foot which is marginating. Neurological: No focal deficits. Awake and and arousable. Overall, is encephalopathic. - Labs CBC & Chem 7: 06/26/22 03:50 06/26/22 03:50 Labs: Abnormal Lab Results - Last 24 Hours (Table) 06/25/22 06/25/22 06/25/22 Range/Units 08:48 08:48 09:17 RBC (4.30-5.90) m/uL Hgb (13.0-17.5) gm/dL Hct (39.0-53.0) % RDW (11.5-15.5) % Plt Count (150-450) k/uL Lymphocytes # (Manual) (1.0-4.8) k/uL Sodium (137-145) mmol/L Carbon Dioxide (22-30) mmol/L BUN (9-20) mg/dL Creatinine (0.66-1.25) mg/dL Glucose (74-99) mg/dL POC Glucose (mg/dL) 191 H (70-110) mg/dL Plasma Lactic Acid Jeremiah 2.8 H* (0.7-2.0) mmol/L Calcium (8.4-10.2) mg/dL Magnesium (1.6-2.3) mg/dL Troponin I 0.119 H* (0.000-0.034) ng/mL C-Reactive Protein (<1.0) mg/dL Procalcitonin (0.02-0.09) ng/mL 06/25/22 06/25/22 06/25/22 Range/Units 10:32 10:32 11:39 RBC (4.30-5.90) m/uL Hgb (13.0-17.5) gm/dL Hct (39.0-53.0) % RDW (11.5-15.5) % Plt Count (150-450) k/uL Lymphocytes # (Manual) (1.0-4.8) k/uL Sodium (137-145) mmol/L Carbon Dioxide (22-30) mmol/L BUN (9-20) mg/dL Creatinine (0.66-1.25) mg/dL Glucose (74-99) mg/dL POC Glucose (mg/dL) (70-110) mg/dL Plasma Lactic Acid Jeremiah (0.7-2.0) mmol/L Calcium (8.4-10.2) mg/dL Magnesium (1.6-2.3) mg/dL Troponin I 0.112 H* (0.000-0.034) ng/mL C-Reactive Protein 14.3 H (<1.0) mg/dL Procalcitonin 35.80 H (0.02-0.09) ng/mL 06/25/22 06/25/22 06/25/22 Range/Units 11:39 13:40 16:29 RBC (4.30-5.90) m/uL Hgb (13.0-17.5) gm/dL Hct (39.0-53.0) % RDW (11.5-15.5) % Plt Count (150-450) k/uL Lymphocytes # (Manual) (1.0-4.8) k/uL Sodium (137-145) mmol/L Carbon Dioxide (22-30) mmol/L BUN (9-20) mg/dL Creatinine (0.66-1.25) mg/dL Glucose (74-99) mg/dL POC Glucose (mg/dL) 177 H (70-110) mg/dL Plasma Lactic Acid Jeremiah 3.6 H* 4.4 H* (0.7-2.0) mmol/L Calcium (8.4-10.2) mg/dL Magnesium (1.6-2.3) mg/dL Troponin I (0.000-0.034) ng/mL C-Reactive Protein (<1.0) mg/dL Procalcitonin (0.02-0.09) ng/mL 06/25/22 06/25/22 06/25/22 Range/Units 16:29 17:38 19:24 RBC (4.30-5.90) m/uL Hgb (13.0-17.5) gm/dL Hct (39.0-53.0) % RDW (11.5-15.5) % Plt Count (150-450) k/uL Lymphocytes # (Manual) (1.0-4.8) k/uL Sodium 136 L (137-145) mmol/L Carbon Dioxide 16 L (22-30) mmol/L BUN 21 H (9-20) mg/dL Creatinine 1.31 H (0.66-1.25) mg/dL Glucose 238 H (74-99) mg/dL POC Glucose (mg/dL) 259 H (70-110) mg/dL Plasma Lactic Acid Jeremiah 3.4 H* (0.7-2.0) mmol/L Calcium 7.1 L (8.4-10.2) mg/dL Magnesium 1.2 L (1.6-2.3) mg/dL Troponin I (0.000-0.034) ng/mL C-Reactive Protein (<1.0) mg/dL Procalcitonin (0.02-0.09) ng/mL 06/25/22 06/25/22 06/25/22 Range/Units 19:52 22:01 23:49 RBC (4.30-5.90) m/uL Hgb (13.0-17.5) gm/dL Hct (39.0-53.0) % RDW (11.5-15.5) % Plt Count (150-450) k/uL Lymphocytes # (Manual) (1.0-4.8) k/uL Sodium (137-145) mmol/L Carbon Dioxide (22-30) mmol/L BUN (9-20) mg/dL Creatinine (0.66-1.25) mg/dL Glucose (74-99) mg/dL POC Glucose (mg/dL) 319 H 387 H (70-110) mg/dL Plasma Lactic Acid Jeremiah 4.5 H* (0.7-2.0) mmol/L Calcium (8.4-10.2) mg/dL Magnesium (1.6-2.3) mg/dL Troponin I (0.000-0.034) ng/mL C-Reactive Protein (<1.0) mg/dL Procalcitonin (0.02-0.09) ng/mL 06/26/22 06/26/22 06/26/22 Range/Units 02:02 02:30 03:10 RBC (4.30-5.90) m/uL Hgb (13.0-17.5) gm/dL Hct (39.0-53.0) % RDW (11.5-15.5) % Plt Count (150-450) k/uL Lymphocytes # (Manual) (1.0-4.8) k/uL Sodium (137-145) mmol/L Carbon Dioxide (22-30) mmol/L BUN (9-20) mg/dL Creatinine (0.66-1.25) mg/dL Glucose (74-99) mg/dL POC Glucose (mg/dL) 283 H 299 H (70-110) mg/dL Plasma Lactic Acid Jeremiah 3.9 H* (0.7-2.0) mmol/L Calcium (8.4-10.2) mg/dL Magnesium (1.6-2.3) mg/dL Troponin I (0.000-0.034) ng/mL C-Reactive Protein (<1.0) mg/dL Procalcitonin (0.02-0.09) ng/mL 06/26/22 06/26/22 06/26/22 Range/Units 03:50 03:50 04:18 RBC 3.30 L (4.30-5.90) m/uL Hgb 10.0 L D (13.0-17.5) gm/dL Hct 30.1 L (39.0-53.0) % RDW 17.6 H (11.5-15.5) % Plt Count 116 L (150-450) k/uL Lymphocytes # (Manual) 0.23 L (1.0-4.8) k/uL Sodium 134 L (137-145) mmol/L Carbon Dioxide (22-30) mmol/L BUN 24 H (9-20) mg/dL Creatinine 1.30 H (0.66-1.25) mg/dL Glucose 266 H (74-99) mg/dL POC Glucose (mg/dL) 303 H (70-110) mg/dL Plasma Lactic Acid Jeremiah (0.7-2.0) mmol/L Calcium 6.3 L* (8.4-10.2) mg/dL Magnesium 2.4 H (1.6-2.3) mg/dL Troponin I (0.000-0.034) ng/mL C-Reactive Protein (<1.0) mg/dL Procalcitonin (0.02-0.09) ng/mL 06/26/22 06/26/22 06/26/22 Range/Units 04:50 06:01 07:04 RBC (4.30-5.90) m/uL Hgb (13.0-17.5) gm/dL Hct (39.0-53.0) % RDW (11.5-15.5) % Plt Count (150-450) k/uL Lymphocytes # (Manual) (1.0-4.8) k/uL Sodium (137-145) mmol/L Carbon Dioxide (22-30) mmol/L BUN (9-20) mg/dL Creatinine (0.66-1.25) mg/dL Glucose (74-99) mg/dL POC Glucose (mg/dL) 272 H 222 H 224 H (70-110) mg/dL Plasma Lactic Acid Jeremiah (0.7-2.0) mmol/L Calcium (8.4-10.2) mg/dL Magnesium (1.6-2.3) mg/dL Troponin I (0.000-0.034) ng/mL C-Reactive Protein (<1.0) mg/dL Procalcitonin (0.02-0.09) ng/mL Assessment and Plan Plan: Acute febrile illness/sepsis currently under investigation. The exact source could be abdominal as the patient's CAT scan of the abdomen showed evidence of colitis without diverticulitis. The gallbladder is also distended and there is evidence of chronic cystitis probably related to radiation therapy to the patient received for bladder cancer. Other sources could be soft tissue/skin. The patient is a chronic wound in the left foot malleolus which is essentially dry and there is no active drainage at this point in time. No evidence of pneumonia. I suspect that the source of sepsis is the left lower extremity. There is a fall smell or genetic from the left foot. Nevertheless, there is no active drainage. There is vesicular formation consistent with soft tissue infection as the source of the underlying sepsis. The patient remains on accommodation of Zosyn and Flagyl and daptomycin Acute lactic acidosis secondary to above, improving and the lactic acid level is down to 2.6 Acute sepsis on that investigation, currently normotensive, no pressors Troponin leak secondary to above, nonspecific, likely type II ischemia Systolic heart failure with an ejection fraction of 30% Coronary artery disease CHF, systolic heart failure Severe peripheral vascular disease with previous aortobifemoral bypass surgery, arterial Dopplers showed no waveform in the popliteal, posterior tibialis and dorsalis pedis. There is Doppler signal in his left femoral artery. 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 Bladder cancer post-chemo and radiation therapy Plan Change IV fluids to normal saline at the rate of 150 mL an hour Stop the bicarb infusion Continue the Zosyn and daptomycin and Flagyl Awaiting vascular surgical evaluation Patient has made wishes not to do any form of surgical amputation of the left lower extremity. The disability discussed especially in light of ongoing sepsis. This may be potentially life-saving procedure. I would on this again with the family, the and the vascular surgeon and the final decision will made accordingly. Obtain blood cultures Obtain urine cultures Obtain a vascular surgery consultation regarding left lower extremity vascular insufficiency and chronic wound Obtain a general surgery consultation regarding colitis Admit this patient to the intensive care unit Continue insulin drip for blood sugar control Continue Xarelto Oxygen to be titrated to maintain a saturation above 90% Condition is critical and we'll continue to follow
[2022-06-26 08:15] LABS: Glucose,Whole Blood 173 mg/dL (70-110)
[2022-06-26] MEDS ORDERED: CALCIUM GLUCONATE IN NACL 2 GM in SALINE 1 100ML.BAG IVPB ONE (08:18)
[2022-06-26] MEDS: metroNIDAZOLE-NS PMX 500 MG in SALINE 1 100ML.BAG IVPB SCH (08:25)
[2022-06-26] MEDS: PIPERACILLIN-TAZOBACTAM 3.375 GM in SODIUM CHLORIDE 0.9% 100 ML IVPB SCH (08:25)
[2022-06-26] MEDS: carvediloL 6.25 MG TAB PO SCH (08:27)
[2022-06-26] MEDS: RIVAROXABAN 20 MG TAB PO SCH (08:28)
[2022-06-26] MEDS: ATORVASTATIN 40 MG TAB PO SCH (08:28)
[2022-06-26] MEDS: GABAPENTIN 300 MG CAP PO PRN (08:28)
[2022-06-26] MEDS ORDERED: SODIUM CHLORIDE 0.9% 1,000 ML IV SCH (08:30)
[2022-06-26] MEDS ORDERED: TAMSULOSIN 0.4 MG CAP.ER.24H PO SCH (09:00)
[2022-06-26] MEDS ORDERED: LORATADINE 10 MG TAB PO SCH (09:00)
[2022-06-26] MEDS ORDERED: ASPIRIN 81 MG PO SCH (09:00)
[2022-06-26] MEDS ORDERED: OXYBUTYNIN 10 MG TAB.ER.24 PO SCH (09:00)
[2022-06-26 09:03] LABS: Glucose,Whole Blood 141 mg/dL (70-110)
--- NOTE | 2022-06-26 09:05 | P.PN ---
Progress Note - Text Progress Note Date: 06/26/22 Patient is sleeping in his bed. His pain appears to be improved. On exam vital signs appear stable. Abdomen is soft with no significant tenderness. There is no rebound or guarding. Probable chronic cholecystitis and possible sigmoid colitis. No surgery she will intervention is planned at this point. Patient should receive supportive care.
[2022-06-26 10:02] LABS: Glucose,Whole Blood 135 mg/dL (70-110)
[2022-06-26] MEDS ORDERED: SODIUM CHLORIDE 0.9% 1,000 ML IV ONE (10:25)
[2022-06-26 10:28] VITALS: TEMP 102
[2022-06-26] MEDS ORDERED: NOREPINEPHRINE 4 MG in SODIUM CHLORIDE 0.9% 250 ML IV SCH (10:30)
[2022-06-26 10:42] LABS: Glucose,Whole Blood 119 mg/dL (70-110)
[2022-06-26] MEDS ORDERED: ACETAMINOPHEN IV (For NPO) 1,000 MG in EMPTY BAG 1 BAG IVPB PRN (10:49)
[2022-06-26 11:11] LABS: Glucose,Whole Blood 112 mg/dL (70-110)
--- NOTE | 2022-06-26 14:24 | P.HPIM ---
History of Present Illness H&P Date: 06/26/22 Chief Complaint: Palpitations/weakness 66-year-old male to the emergency department for evaluation. Patient comes in significant distress tachycardic lightheaded dizzy and swelling. Back pain with nausea vomiting and diarrhea for the last 4 days, increasing. Patient feels weak lightheaded dizzy and feels like he has palpitations. Patient has multiple medical issues with chronic comorbid medical conditions. EKG sinus tachycardia 109-138 bpm, multiple EKGs reviewed Chest x-ray: Correlate for interstitial phase pulmonary edema Repeat chest x-ray reveals improved aeration and decreased bibasilar atelectasis. Unchanged mild bilateral perihilar reticular opacities compatible with interstitial pulmonary edema CAT scan of the brain revealed no acute abnormalities CAT scan of the abdomen and pelvis revealed sigmoid colon thickening consistent with colitis. Scattered colonic diverticuli without diverticulitis. Contracted gallbladder with marked thickening consistent with cystitis. Well distended gallbladder without stones. Redemonstrated aortoiliac vascular bypass grafts. WBC 5.6, hemoglobin 11.5, platelet count 129. D-dimer 3.97. INR 1. Sodium 133, potassium 5.3, CO2 17, BUN 23 creatinine 1.25. Lactic acid 5.4 now 2.8. Troponin 0.042. ProBNP 251. Recent lipid panel revealed HDL 35, LDL 56. Review of Systems Constitutional: Documented fever, reports weakness, reports fatigue noted lethargy. EENT: No headache. Reports dizziness. Lungs: Reports shortness of breath, cough, no sputum production. No wheezing. Cardiovascular: No chest pain, + lower extremity edema. Reports lightheadedness or dizziness. Abdominal: Reported abdominal pain. Reported nausea, vomiting, diarrhea. Musculoskeletal: + muscle weakness. Integumentary: + wounds. Neurologic: No aphasia. No facial droop. Noted change in mentation. Past Medical History Past Medical History: Cancer, Diabetes Mellitus, Deep Vein Thrombosis (DVT), Hyperlipidemia, Hypertension, Myocardial Infarction (OR), Sleep Apnea/CPAP/BIPAP, Vascular Disorder Additional Past Medical History / Comment(s): HX OF DVT'S 2013 (legs & arm)., PAD, Hx DIABETIC ULCERS, LEFT ANKLE WOUND THAT IS HEALING, HX OF SLEEP APNEA(RESOLVED WITH WT LOSS)., RIGHT AKA , WEARS PROSTHESIS. bladder cancer get injections to his eyes for diabetic retinopathy approx q 6 weeks Last Myocardial Infarction Date:: 2001 History of Any Multi-Drug Resistant Organisms: None Reported Past Surgical History: Bladder Surgery, Heart Catheterization With Stent, Hernia Repair Additional Past Surgical History / Comment(s): right FEMPOP BYPASS by Dr. Orozco on 11/15/13, STENTS TO MARIANELA GROINS DONE AT [facility] in 2006, RIGHT ABOVE KNEE AMPUTATION 11/2013. AMPUTATION 4TH TOES LT FOOT, "BLADDER SCRAPING" X2 AT [facility], URETHRAL STENT PLACMENT AND REMOVAL. amputation revision feb 2021 Past Anesthesia/Blood Transfusion Reactions: No Reported Reaction Additional Past Anesthesia/Blood Transfusion Reaction / Comment(s): PT STATES HE FELT REALLY "POORLY" AFTER ONE OF HIS RECENT SURGERIES AT [facility] Date of Last Stent Placement:: 2001 & 2006 Past Psychological History: No Psychological Hx Reported Smoking Status: Former smoker Past Alcohol Use History: None Reported Past Drug Use History: None Reported - Past Family History Father Family Medical History: CVA/TIA, Diabetes Mellitus, Vascular Disorder Additional Family Medical History / Comment(s): leg amputation, in retirement d/t diabetic cx. Mother Family Medical History: Cancer, Coronary Artery Disease (CAD) Additional Family Medical History / Comment(s): LYMPHOMA Sister(s) Family Medical History: Cancer Medications and Allergies Home Medications Medication Instructions Recorded Confirmed Type Aspirin EC [Ecotrin Low Dose] 81 mg PO DAILY #30 tablet. 10/06/13 06/24/22 Rx Atorvastatin [Lipitor] 40 mg PO DAILY 11/07/13 06/24/22 History lisinopriL [Zestril] 2.5 mg PO DAILY 07/24/14 06/24/22 History Pentoxifylline [TRENtal] 400 mg PO TID 02/09/18 06/24/22 History Gabapentin [Neurontin] 300 mg PO QID PRN 12/10/19 06/24/22 History Ibuprofen 200 mg PO BID 12/10/19 06/24/22 History Rivaroxaban [Xarelto] 20 mg PO DAILY 12/10/19 06/24/22 History carvediloL [Coreg] 12.5 mg PO BID 12/10/19 06/24/22 History Insulin NPH Hum/Reg Insulin Hm 50 unit SQ BID 12/12/19 06/24/22 History [Novolin 70-30 Flexpen] Loratadine 10 mg PO DAILY 03/11/22 06/24/22 History Acetaminophen Tab [Tylenol Tab] 1,000 mg PO Q6HR PRN 06/24/22 06/24/22 History Oxybutynin Chloride [Ditropan XL] 10 mg PO DAILY 06/24/22 06/24/22 History Phenazopyridine [Pyridium] 200 mg PO TID PRN 06/24/22 06/24/22 History Prevalite 1 scoop PO DAILY 06/24/22 06/24/22 History Spironolactone [Aldactone] 12.5 mg PO DAILY 06/24/22 06/24/22 History Tamsulosin HCl [Flomax] 0.4 mg PO DAILY 06/24/22 06/24/22 History metFORMIN HCL ER [Glucophage XR] 1,000 mg PO BID 06/24/22 06/24/22 History Allergies Allergy/AdvReac Type Severity Reaction Status Date / Time empagliflozin AdvReac Unknown joints ache Verified 06/24/22 18:04 [From Jardiance] Physical Exam Vitals: Vital Signs Temp Pulse Resp BP Pulse Ox 06/25/22 10:41 101.3 F H 121 H 28 H 100/79 98 06/25/22 09:26 104 F H 06/25/22 08:50 105.9 F H 134 H 40 H 98 06/25/22 08:30 100.8 F H 06/25/22 08:00 98.2 F 128 H 20 127/62 100 06/25/22 07:39 100 06/25/22 07:00 98.3 F 123 H 20 127/62 100 06/25/22 06:21 98.5 F 06/25/22 06:00 117 H 20 117/73 66 L 06/25/22 05:45 115 H 20 116/65 92 L 06/25/22 05:30 123 H 20 109/65 95 06/25/22 05:15 125 H 19 151/73 95 06/25/22 05:00 101.7 F H 123 H 20 109/65 96 06/25/22 04:15 126 H 42 H 164/81 97 06/25/22 04:01 103 F H 06/25/22 04:00 129 H 42 H 160/98 92 L 06/25/22 03:50 46 H 06/25/22 03:30 130 H 39 H 165/69 93 L 06/25/22 03:04 129 H 28 H 165/69 96 06/25/22 03:02 129 H 39 H 165/69 96 06/25/22 02:58 126 H 37 H 158/69 98 06/25/22 02:56 126 H 37 H 158/69 98 06/25/22 02:52 125 H 34 H 158/69 92 L 06/25/22 02:51 125 H 34 H 158/69 92 L 06/25/22 02:48 126 H 34 H 158/69 95 06/25/22 02:47 126 H 34 H 158/69 95 06/25/22 02:40 128 H 36 H 158/69 96 06/25/22 02:38 128 H 35 H 158/69 94 L 06/25/22 02:36 128 H 35 H 158/69 94 L 06/25/22 01:00 118 H 16 119/62 100 06/25/22 00:00 111 H 14 103/42 97 06/24/22 22:00 104 H 11 L 115/86 06/24/22 21:14 103 H 22 115/86 06/24/22 21:00 103 H 20 92/58 06/24/22 20:30 105 H 18 92/58 96 06/24/22 20:00 109 H 18 94/59 97 06/24/22 19:30 106 H 15 109/70 97 06/24/22 19:00 106 H 13 109/70 100 06/24/22 18:30 103 H 24 06/24/22 18:00 111 H 22 06/24/22 17:30 116 H 06/24/22 17:00 123 H 06/24/22 16:30 133 H 12 130/67 06/24/22 16:00 137 H 8 L 115/83 98 06/24/22 15:55 137 H 30 H 06/24/22 15:36 99.6 F 140 H 18 105/65 94 L Intake and Output 06/24/22 06/25/22 06/25/22 22:59 06:59 14:59 Other: Weight 101.151 kg General appearance: alert, anxious, lethargic, in distress, obese Head exam: Present: atraumatic, normocephalic, normal inspection Eye exam: Present: normal appearance, PERRL, EOMI. Absent: scleral icterus, conjunctival injection, periorbital swelling Neck exam: Present: normal inspection. Absent: tenderness, meningismus, lymphadenopathy Respiratory exam: Present: normal lung sounds bilaterally. Absent: respiratory distress, wheezes, rales, rhonchi, stridor Cardiovascular Exam: Present: tachycardia, normal heart sounds. Absent: systol ic murmur, diastolic murmur, rubs, gallop, clicks GI/Abdominal exam: Present: soft, normal bowel sounds. Absent: distended, tenderness, guarding, rebound, rigid Extremities exam: Present: normal inspection, full ROM, normal capillary refill. Absent: tenderness, pedal edema, joint swelling, calf tenderness Neurological exam: Present: alert, oriented X3, CN II-XII intact Skin exam: Present: warm, dry, intact, normal color. Absent: rash Results CBC & Chem 7: 06/26/22 03:50 06/26/22 03:50 Labs: Abnormal Lab Results - Last 24 Hours (Table) 06/24/22 06/24/22 06/24/22 Range/Units 16:13 16:13 16:13 RBC (4.30-5.90) m/uL Hgb (13.0-17.5) gm/dL Hct (39.0-53.0) % RDW 17.3 H (11.5-15.5) % Plt Count (150-450) k/uL Lymphocytes # 0.6 L (1.0-4.8) k/uL APTT 17.7 L (22.0-30.0) sec D-Dimer (<0.60) mg/L FEU ABG pCO2 (35-45) mmHg ABG pO2 (83-108) mmHg ABG HCO3 (21-25) mmol/L ABG O2 Saturation (94-97) % Sodium (137-145) mmol/L Potassium (3.5-5.1) mmol/L Carbon Dioxide (22-30) mmol/L BUN (9-20) mg/dL Glucose (74-99) mg/dL POC Glucose (mg/dL) (70-110) mg/dL Plasma Lactic Acid Jeremiah (0.7-2.0) mmol/L Calcium (8.4-10.2) mg/dL Phosphorus (2.5-4.5) mg/dL Magnesium (1.6-2.3) mg/dL AST (17-59) U/L Troponin I (0.000-0.034) ng/mL Total Protein (6.3-8.2) g/dL Urine Protein 1+ H (Negative) Urine Glucose (UA) Trace H (Negative) Urine Ketones Trace H (Negative) Hyaline Casts 9 H (0-2) /lpf Urine Mucus Rare H (None) /hpf 06/24/22 06/24/22 06/24/22 Range/Units 16:13 16:13 16:13 RBC (4.30-5.90) m/uL Hgb (13.0-17.5) gm/dL Hct (39.0-53.0) % RDW (11.5-15.5) % Plt Count (150-450) k/uL Lymphocytes # (1.0-4.8) k/uL APTT (22.0-30.0) sec D-Dimer (<0.60) mg/L FEU ABG pCO2 (35-45) mmHg ABG pO2 (83-108) mmHg ABG HCO3 (21-25) mmol/L ABG O2 Saturation (94-97) % Sodium (137-145) mmol/L Potassium (3.5-5.1) mmol/L Carbon Dioxide 19 L (22-30) mmol/L BUN 23 H (9-20) mg/dL Glucose 282 H (74-99) mg/dL POC Glucose (mg/dL) (70-110) mg/dL Plasma Lactic Acid Jeremiah 5.4 H* (0.7-2.0) mmol/L Calcium (8.4-10.2) mg/dL Phosphorus 2.0 L (2.5-4.5) mg/dL Magnesium 1.4 L (1.6-2.3) mg/dL AST (17-59) U/L Troponin I 0.042 H* (0.000-0.034) ng/mL Total Protein (6.3-8.2) g/dL Urine Protein (Negative) Urine Glucose (UA) (Negative) Urine Ketones (Negative) Hyaline Casts (0-2) /lpf Urine Mucus (None) /hpf 06/24/22 06/24/2206/25/23 Range/Units 19:36 23:05 03:03 RBC 3.78 L (4.30-5.90) m/uL Hgb 11.5 L (13.0-17.5) gm/dL Hct 34.7 L (39.0-53.0) % RDW 17.4 H (11.5-15.5) % Plt Count 129 L (150-450) k/uL Lymphocytes # 0.3 L (1.0-4.8) k/uL APTT (22.0-30.0) sec D-Dimer (<0.60) mg/L FEU ABG pCO2 (35-45) mmHg ABG pO2 (83-108) mmHg ABG HCO3 (21-25) mmol/L ABG O2 Saturation (94-97) % Sodium (137-145) mmol/L Potassium (3.5-5.1) mmol/L Carbon Dioxide (22-30) mmol/L BUN (9-20) mg/dL Glucose (74-99) mg/dL POC Glucose (mg/dL) (70-110) mg/dL Plasma Lactic Acid Jeremiah 3.1 H* 3.8 H* (0.7-2.0) mmol/L Calcium (8.4-10.2) mg/dL Phosphorus (2.5-4.5) mg/dL Magnesium (1.6-2.3) mg/dL AST (17-59) U/L Troponin I (0.000-0.034) ng/mL Total Protein (6.3-8.2) g/dL Urine Protein (Negative) Urine Glucose (UA) (Negative) Urine Ketones (Negative) Hyaline Casts (0-2) /lpf Urine Mucus (None) /hpf 06/25/22 06/25/22 06/25/22 Range/Units 03:03 03:03 03:37 RBC (4.30-5.90) m/uL Hgb (13.0-17.5) gm/dL Hct (39.0-53.0) % RDW (11.5-15.5) % Plt Count (150-450) k/uL Lymphocytes # (1.0-4.8) k/uL APTT (22.0-30.0) sec D-Dimer (<0.60) mg/L FEU ABG pCO2 (35-45) mmHg ABG pO2 (83-108) mmHg ABG HCO3 (21-25) mmol/L ABG O2 Saturation (94-97) % Sodium 133 L (137-145) mmol/L Potassium 5.3 H (3.5-5.1) mmol/L Carbon Dioxide 17 L (22-30) mmol/L BUN 23 H (9-20) mg/dL Glucose 208 H (74-99) mg/dL POC Glucose (mg/dL) 208 H (70-110) mg/dL Plasma Lactic Acid Jeremiah 3.7 H* (0.7-2.0) mmol/L Calcium 7.6 L (8.4-10.2) mg/dL Phosphorus 2.2 L (2.5-4.5) mg/dL Magnesium 1.0 L (1.6-2.3) mg/dL AST 134 H (17-59) U/L Troponin I (0.000-0.034) ng/mL Total Protein 6.2 L (6.3-8.2) g/dL Urine Protein (Negative) Urine Glucose (UA) (Negative) Urine Ketones (Negative) Hyaline Casts (0-2) /lpf Urine Mucus (None) /hpf 06/25/22 06/25/22 06/25/22 Range/Units 04:03 04:15 08:48 RBC (4.30-5.90) m/uL Hgb (13.0-17.5) gm/dL Hct (39.0-53.0) % RDW (11.5-15.5) % Plt Count (150-450) k/uL Lymphocytes # (1.0-4.8) k/uL APTT (22.0-30.0) sec D-Dimer 3.97 H (<0.60) mg/L FEU ABG pCO2 31 L (35-45) mmHg ABG pO2 60 L (83-108) mmHg ABG HCO3 19 L (21-25) mmol/L ABG O2 Saturation 92.8 L (94-97) % Sodium (137-145) mmol/L Potassium (3.5-5.1) mmol/L Carbon Dioxide (22-30) mmol/L BUN (9-20) mg/dL Glucose (74-99) mg/dL POC Glucose (mg/dL) (70-110) mg/dL Plasma Lactic Acid Jeremiah 2.8 H* (0.7-2.0) mmol/L Calcium (8.4-10.2) mg/dL Phosphorus (2.5-4.5) mg/dL Magnesium (1.6-2.3) mg/dL AST (17-59) U/L Troponin I (0.000-0.034) ng/mL Total Protein (6.3-8.2) g/dL Urine Protein (Negative) Urine Glucose (UA) (Negative) Urine Ketones (Negative) Hyaline Casts (0-2) /lpf Urine Mucus (None) /hpf 06/25/22 06/25/22 Range/Units 08:48 09:17 RBC (4.30-5.90) m/uL Hgb (13.0-17.5) gm/dL Hct (39.0-53.0) % RDW (11.5-15.5) % Plt Count (150-450) k/uL Lymphocytes # (1.0-4.8) k/uL APTT (22.0-30.0) sec D-Dimer (<0.60) mg/L FEU ABG pCO2 (35-45) mmHg ABG pO2 (83-108) mmHg ABG HCO3 (21-25) mmol/L ABG O2 Saturation (94-97) % Sodium (137-145) mmol/L Potassium (3.5-5.1) mmol/L Carbon Dioxide (22-30) mmol/L BUN (9-20) mg/dL Glucose (74-99) mg/dL POC Glucose (mg/dL) 191 H (70-110) mg/dL Plasma Lactic Acid Jeremiah (0.7-2.0) mmol/L Calcium (8.4-10.2) mg/dL Phosphorus (2.5-4.5) mg/dL Magnesium (1.6-2.3) mg/dL AST (17-59) U/L Troponin I 0.119 H* (0.000-0.034) ng/mL Total Protein (6.3-8.2) g/dL Urine Protein (Negative) Urine Glucose (UA) (Negative) Urine Ketones (Negative) Hyaline Casts (0-2) /lpf Urine Mucus (None) /hpf Assessment and Plan Assessment: 1. Sepsis; likely related to acute cystitis versus colitis - CT of abdomen completed in ED reveals colitis without diverticulitis along with cystitis- likely related to radiation therapy patient received for bladder cancer - Patient has been placed on IV antibiotics in form of IV vancomycin and Zosyn - Is going to be admitted to ICU; critical care and general surgery consulted - We will monitor CBC, CRP and pro-calcitonin 2. Acute Lactic acidosis; related to sepsis; patient received IV fluid bolus in ED; we will monitor and trend lactic acid levels; patient has received a total of 4 L of normal saline 3. Elevated troponin; non-ST OR versus type II ischemia; secondary to sepsis; we will continue to trend troponins and monitor EKG; consult cardiology for further recommendations 4. History of CAD/CHF; patient remains on aspirin and statin therapy 5. Severe PVD; patient has history of aortobifemoral bypass surgery - Status post right above-knee amputee - Vascular surgery consulted 6. Diabetic foot ulcer; stage IV, left malleolus 7. Hypertension; currently not on an antihypertensive therapy 8. Hyperlipidemia; Lipitor 40 mg by mouth daily at bedtime 9. History of chronic DVT left lower extremity; continue with home dose of Xarelto DVT prophylaxis; SCDs/Xarelto CODE STATUS; DO NOT RESUSCITATE per 's request at bedside
--- NOTE | 2022-06-26 14:30 | P.PN ---
Subjective Progress Note Date: 06/26/22 Principal diagnosis: Sepsis 66-year-old male to the emergency department for evaluation. Patient comes in significant distress tachycardic lightheaded dizzy and swelling. Back pain with nausea vomiting and diarrhea for the last 4 days, increasing. Patient feels weak lightheaded dizzy and feels like he has palpitations. Patient has multiple medical issues with chronic comorbid medical conditions. EKG sinus tachycardia 109-138 bpm, multiple EKGs reviewed Chest x-ray: Correlate for interstitial phase pulmonary edema Repeat chest x-ray reveals improved aeration and decreased bibasilar atelectasis. Unchanged mild bilateral perihilar reticular opacities compatible with interstitial pulmonary edema CAT scan of the brain revealed no acute abnormalities CAT scan of the abdomen and pelvis revealed sigmoid colon thickening consistent with colitis. Scattered colonic diverticuli without diverticulitis. Contracted gallbladder with marked thickening consistent with cystitis. Well distended gallbladder without stones. Redemonstrated aortoiliac vascular bypass grafts. WBC 5.6, hemoglobin 11.5, platelet count 129. D-dimer 3.97. INR 1. Sodium 133, potassium 5.3, CO2 17, BUN 23 creatinine 1.25. Lactic acid 5.4 now 2.8. Troponin 0.042. ProBNP 251. Recent lipid panel revealed HDL 35, LDL 56. 06/26/2022 the patient is seen and evaluated with at bedside; arousable but does not follow any commands; continues to request DO NOT RESUSCITATE per patient's wishes -- fever with a T-max of 101.8, BP is 114/75. He is on 4 L of Oxymizer nasal cannula with a pulse ox of 95%. Patient was given aggressive fluid resuscitation and antibiotics and he remains on a combination of Zosyn and Flagyl and vancomycin -- The chest x-ray showed no evidence of any pneumonia; pro calcitonin level was quite elevated at 35.8; white cell count is at 7.5, hemoglobin is at panel with a platelet count of 116. BUN is 24 with a creatinine of 1.3. Lactic acid levels improved compared to yesterday. It is currently down to 2.6. BUN is 24 with a creatinine of 1.3. Serum bicarb is up to 22. The serum albumin is at 3.7. Calcium levels have been low at 6.3. In terms of blood sugar control, the patient is receiving insulin drip and this is running at 11 units an hour. Awaiting further input from consultants including vascular surgery and hematology oncology. ---- Prognosis remains guarded; is aware of patient's condition and prognosis and continues to request DO NOT RESUSCITATE Objective - Vital Signs Vital signs: Vital Signs Temp 102.0 F H 06/26/22 10:00 Pulse 102 H 06/26/22 10:15 Resp 21 06/26/22 10:15 BP 63/50 06/26/22 10:15 Pulse Ox 98 06/26/22 10:15 FiO2 50 06/26/22 04:00 Intake & Output 06/25/22 06/26/22 06/26/22 18:59 06:59 18:59 Intake Total 1320 2623.308 2336.626 Output Total 710 955 290 Balance 610 9025.968 9213.626 Weight 102.3 kg Intake: IV 1320 2600 2250 ACETAMINOPHEN IV (For NPO 100 100 ) 1,000 mg In Empty Bag 1 bag @ 400 mls/hr IVPB ONCE ONE Rx#:[id number] ACETAMINOPHEN IV (For NPO 100 ) 1,000 mg In Empty Bag 1 bag @ 400 mls/hr IVPB Q6H PRN Rx#:[id number] Calcium Gluconate in NaCl 100 2 gm In Saline 1 100ml. bag @ 50 mls/hr IVPB ONCE ONE Rx#:[id number] DAPTOmycin 600 mg In 50 Sodium Chloride 0.9% 50 ml @ 100 mls/hr IVPB Q24HR [facility] Rx#:[id number] Dextrose 5% in Water 1, 450 1800 150 000 ml @ 150 mls/hr IV . Q7H40M [facility] with Sodium Bicarb (1 Meq/ml) 150 ml Rx#:[id number] Invasive Line 1 20 20 10 Invasive Line 2 30 60 30 Invasive Line 3 20 20 10 Magnesium Sulfate-D5w Pmx 400 1 gm In Dextrose/Water 1 100ml.bag @ 100 mls/hr IVPB Q1H [facility] Rx#: [id number] Piperacillin-Tazobactam 3 100 100 100 .375 gm In Sodium Chloride 0.9% 100 ml @ 25 mls/hr IVPB Q8HR [facility] Rx# :[id number] Sodium Chloride 0.9% 1, 600 000 ml @ 150 mls/hr IV . Q6H40M [facility] Rx#:[id number] Sodium Chloride 0.9% 1, 1000 000 ml @ 999 mls/hr IV . Q1H1M [facility] Rx#:[id number] Vancomycin 1,750 mg In 500 Sodium Chloride 0.9% 500 ml 500 ml @ 167 mls/hr IVPB Q12H [facility] Rx#: [id number] metroNIDAZOLE-NS PMX 500 100 100 100 mg In Saline 1 100ml.bag @ 100 mls/hr IVPB Q8HR [facility] Rx#:[id number] Intake, IV Titration 23.308 86.626 Amount Insulin Regular 100 unit 23.308 34.983 In Sodium Chloride 0.9% 100 ml @ Titrate IV .Q0M [facility] Rx#:[id number] Norepinephrine 4 mg In 51.643 Sodium Chloride 0.9% 250 ml @ 0.03 MCG/KG/MIN 11. 693 mls/hr IV .[id number] [facility] Rx#:[id number] Oral 0 Output: Urine 710 955 290 Stool 0 Other: Voiding Method Indwelling Catheter Indwelling Catheter # Bowel Movements 1 - Exam General appearance: alert, anxious, lethargic, in distress, obese Head exam: Present: atraumatic, normocephalic, normal inspection Eye exam: Present: normal appearance, PERRL, EOMI. Absent: scleral icterus, conjunctival injection, periorbital swelling Neck exam: Present: normal inspection. Absent: tenderness, meningismus, lymphadenopathy Respiratory exam: Present: normal lung sounds bilaterally. Absent: respiratory distress, wheezes, rales, rhonchi, stridor Cardiovascular Exam: Present: tachycardia, normal heart sounds. Absent: systolic murmur, diastolic murmur, rubs, gallop, clicks GI/Abdominal exam: Present: soft, normal bowel sounds. Absent: distended, tenderness, guarding, rebound, rigid Extremities exam: Present: normal inspection, full ROM, normal capillary refill. Absent: tenderness, pedal edema, joint swelling, calf tenderness Neurological exam: Present: alert, oriented X3, CN II-XII intact Skin exam: Present: warm, dry, intact, normal color. Absent: rash - Labs CBC & Chem 7: 06/26/22 03:50 06/26/22 03:50 Labs: Abnormal Lab Results - Last 24 Hours (Table) 06/25/22 06/25/22 06/25/22 Range/Units 10:32 11:39 13:40 RBC (4.30-5.90) m/uL Hgb (13.0-17.5) gm/dL Hct (39.0-53.0) % RDW (11.5-15.5) % Plt Count (150-450) k/uL Lymphocytes # (Manual) (1.0-4.8) k/uL Sodium (137-145) mmol/L Carbon Dioxide (22-30) mmol/L BUN (9-20) mg/dL Creatinine (0.66-1.25) mg/dL Glucose (74-99) mg/dL POC Glucose (mg/dL) 177 H (70-110) mg/dL Plasma Lactic Acid Jeremiah (0.7-2.0) mmol/L Calcium (8.4-10.2) mg/dL Magnesium (1.6-2.3) mg/dL Troponin I 0.112 H* (0.000-0.034) ng/mL Procalcitonin 35.80 H (0.02-0.09) ng/mL 06/25/22 06/25/22 06/25/22 Range/Units 16:29 16:29 17:38 RBC (4.30-5.90) m/uL Hgb (13.0-17.5) gm/dL Hct (39.0-53.0) % RDW (11.5-15.5) % Plt Count (150-450) k/uL Lymphocytes # (Manual) (1.0-4.8) k/uL Sodium 136 L (137-145) mmol/L Carbon Dioxide 16 L (22-30) mmol/L BUN 21 H (9-20) mg/dL Creatinine 1.31 H (0.66-1.25) mg/dL Glucose 238 H (74-99) mg/dL POC Glucose (mg/dL) 259 H (70-110) mg/dL Plasma Lactic Acid Jeremiah 4.4 H* (0.7-2.0) mmol/L Calcium 7.1 L (8.4-10.2) mg/dL Magnesium 1.2 L (1.6-2.3) mg/dL Troponin I (0.000-0.034) ng/mL Procalcitonin (0.02-0.09) ng/mL 06/25/22 06/25/22 06/25/22 Range/Units 19:24 19:52 22:01 RBC (4.30-5.90) m/uL Hgb (13.0-17.5) gm/dL Hct (39.0-53.0) % RDW (11.5-15.5) % Plt Count (150-450) k/uL Lymphocytes # (Manual) (1.0-4.8) k/uL Sodium (137-145) mmol/L Carbon Dioxide (22-30) mmol/L BUN (9-20) mg/dL Creatinine (0.66-1.25) mg/dL Glucose (74-99) mg/dL POC Glucose (mg/dL) 319 H (70-110) mg/dL Plasma Lactic Acid Jeremiah 3.4 H* 4.5 H* (0.7-2.0) mmol/L Calcium (8.4-10.2) mg/dL Magnesium (1.6-2.3) mg/dL Troponin I (0.000-0.034) ng/mL Procalcitonin (0.02-0.09) ng/mL 06/25/22 06/26/22 06/26/22 Range/Units 23:49 02:02 02:30 RBC (4.30-5.90) m/uL Hgb (13.0-17.5) gm/dL Hct (39.0-53.0) % RDW (11.5-15.5) % Plt Count (150-450) k/uL Lymphocytes # (Manual) (1.0-4.8) k/uL Sodium (137-145) mmol/L Carbon Dioxide (22-30) mmol/L BUN (9-20) mg/dL Creatinine (0.66-1.25) mg/dL Glucose (74-99) mg/dL POC Glucose (mg/dL) 387 H 283 H (70-110) mg/dL Plasma Lactic Acid Jeremiah 3.9 H* (0.7-2.0) mmol/L Calcium (8.4-10.2) mg/dL Magnesium (1.6-2.3) mg/dL Troponin I (0.000-0.034) ng/mL Procalcitonin (0.02-0.09) ng/mL 06/26/22 06/26/22 06/26/22 Range/Units 03:10 03:50 03:50 RBC 3.30 L (4.30-5.90) m/uL Hgb 10.0 L D (13.0-17.5) gm/dL Hct 30.1 L (39.0-53.0) % RDW 17.6 H (11.5-15.5) % Plt Count 116 L (150-450) k/uL Lymphocytes # (Manual) 0.23 L (1.0-4.8) k/uL Sodium 134 L (137-145) mmol/L Carbon Dioxide (22-30) mmol/L BUN 24 H (9-20) mg/dL Creatinine 1.30 H (0.66-1.25) mg/dL Glucose 266 H (74-99) mg/dL POC Glucose (mg/dL) 299 H (70-110) mg/dL Plasma Lactic Acid Jeremiah (0.7-2.0) mmol/L Calcium 6.3 L* (8.4-10.2) mg/dL Magnesium 2.4 H (1.6-2.3) mg/dL Troponin I (0.000-0.034) ng/mL Procalcitonin (0.02-0.09) ng/mL 06/26/22 06/26/22 06/26/22 Range/Units 04:18 04:50 06:01 RBC (4.30-5.90) m/uL Hgb (13.0-17.5) gm/dL Hct (39.0-53.0) % RDW (11.5-15.5) % Plt Count (150-450) k/uL Lymphocytes # (Manual) (1.0-4.8) k/uL Sodium (137-145) mmol/L Carbon Dioxide (22-30) mmol/L BUN (9-20) mg/dL Creatinine (0.66-1.25) mg/dL Glucose (74-99) mg/dL POC Glucose (mg/dL) 303 H 272 H 222 H (70-110) mg/dL Plasma Lactic Acid Jeremiah (0.7-2.0) mmol/L Calcium (8.4-10.2) mg/dL Magnesium (1.6-2.3) mg/dL Troponin I (0.000-0.034) ng/mL Procalcitonin (0.02-0.09) ng/mL 06/26/22 06/26/22 06/26/22 Range/Units 07:04 07:38 08:14 RBC (4.30-5.90) m/uL Hgb (13.0-17.5) gm/dL Hct (39.0-53.0) % RDW (11.5-15.5) % Plt Count (150-450) k/uL Lymphocytes # (Manual) (1.0-4.8) k/uL Sodium (137-145) mmol/L Carbon Dioxide (22-30) mmol/L BUN (9-20) mg/dL Creatinine (0.66-1.25) mg/dL Glucose (74-99) mg/dL POC Glucose (mg/dL) 224 H 173 H (70-110) mg/dL Plasma Lactic Acid Jeremiah 2.6 H* (0.7-2.0) mmol/L Calcium (8.4-10.2) mg/dL Magnesium (1.6-2.3) mg/dL Troponin I (0.000-0.034) ng/mL Procalcitonin (0.02-0.09) ng/mL 06/26/22 06/26/22 06/26/22 Range/Units 09:02 10:00 10:40 RBC (4.30-5.90) m/uL Hgb (13.0-17.5) gm/dL Hct (39.0-53.0) % RDW (11.5-15.5) % Plt Count (150-450) k/uL Lymphocytes # (Manual) (1.0-4.8) k/uL Sodium (137-145) mmol/L Carbon Dioxide (22-30) mmol/L BUN (9-20) mg/dL Creatinine (0.66-1.25) mg/dL Glucose (74-99) mg/dL POC Glucose (mg/dL) 141 H 135 H 119 H (70-110) mg/dL Plasma Lactic Acid Jeremiah (0.7-2.0) mmol/L Calcium (8.4-10.2) mg/dL Magnesium (1.6-2.3) mg/dL Troponin I (0.000-0.034) ng/mL Procalcitonin (0.02-0.09) ng/mL 06/26/22 Range/Units 11:09 RBC (4.30-5.90) m/uL Hgb (13.0-17.5) gm/dL Hct (39.0-53.0) % RDW (11.5-15.5) % Plt Count (150-450) k/uL Lymphocytes # (Manual) (1.0-4.8) k/uL Sodium (137-145) mmol/L Carbon Dioxide (22-30) mmol/L BUN (9-20) mg/dL Creatinine (0.66-1.25) mg/dL Glucose (74-99) mg/dL POC Glucose (mg/dL) 112 H (70-110) mg/dL Plasma Lactic Acid Jeremiah (0.7-2.0) mmol/L Calcium (8.4-10.2) mg/dL Magnesium (1.6-2.3) mg/dL Troponin I (0.000-0.034) ng/mL Procalcitonin (0.02-0.09) ng/mL Assessment and Plan Assessment: 1. Sepsis; likely related to acute cystitis versus colitis - CT of abdomen completed in ED reveals colitis without diverticulitis along with cystitis- likely related to radiation therapy patient received for bladder cancer - Patient has been placed on IV antibiotics in form of IV vancomycin and Zosyn - Is going to be admitted to ICU; critical care and general surgery consulted - We will monitor CBC, CRP and pro-calcitonin 2. Acute Lactic acidosis; related to sepsis; patient received IV fluid bolus in ED; we will monitor and trend lactic acid levels; patient has received a total of 4 L of normal saline 3. Elevated troponin; non-ST MT versus type II ischemia; secondary to sepsis; we will continue to trend troponins and monitor EKG; consult cardiology for further recommendations 4. History of CAD/CHF; patient remains on aspirin and statin therapy 5. Severe PVD; patient has history of aortobifemoral bypass surgery - Status post right above-knee amputee - Vascular surgery consulted 6. Diabetic foot ulcer; stage IV, left malleolus 7. Hypertension; currently not on an antihypertensive therapy 8. Hyperlipidemia; Lipitor 40 mg by mouth daily at bedtime 9. History of chronic DVT left lower extremity; continue with home dose of Xarelto DVT prophylaxis; SCDs/Xarelto CODE STATUS; DO NOT RESUSCITATE per 's request at bedside
[2022-06-26 14:41] VITALS: BP 77/51; PULSE 0; RESP 0
--- NOTE | 2022-06-28 15:34 | US ---
EXAMINATION TYPE: US arterial LE single level DATE OF EXAM: 06/25/2022 3:39 PM CLINICAL INDICATION: Male, 66 years old with history of PAD, chronic wounds, cool foot; Discoloration left lower leg, purple. wound left medial ankle. right above knee amputation. amputation left 4th to e. history of chronic DVT left leg *Unable to detect waveforms at left popliteal artery, left PT or left DP, Inaudible History of: Smoker: previous Hypertension: y Diabetic: y Hyperlipidemia: unsure Right Brachial Pressure: 140 Left Brachial Pressure: unable to obtain due to IV GINAA GIANA indices could not be performed due to the inability to detect flow beyond the popliteal arter y. IMPRESSION: Unable to detect waveforms at the popliteal artery or distal infrapopliteal vasculature. Correlate for occlusion or thrombosis.
--- NOTE | 2022-07-04 18:52 | P.DS ---
Providers Date of admission: 06/24/22 19:08 Expected date of discharge: 06/26/22 Attending physician: Howie Marshall Primary care physician: Ember Gage [facility] Course: 66-year-old male to the emergency department for evaluation. Patient comes in significant distress tachycardic lightheaded dizzy and swelling. Back pain with nausea vomiting and diarrhea for the last 4 days, increasing. Patient feels weak lightheaded dizzy and feels like he has palpitations. Patient has multiple medical issues with chronic comorbid medical conditions. EKG sinus tachycardia 109-138 bpm, multiple EKGs reviewed Chest x-ray: Correlate for interstitial phase pulmonary edema Repeat chest x-ray reveals improved aeration and decreased bibasilar atelectasis. Unchanged mild bilateral perihilar reticular opacities compatible with interstitial pulmonary edema CAT scan of the brain revealed no acute abnormalities CAT scan of the abdomen and pelvis revealed sigmoid colon thickening consistent with colitis. Scattered colonic diverticuli without diverticulitis. Contracted gallbladder with marked thickening consistent with cystitis. Well distended gallbladder without stones. Redemonstrated aortoiliac vascular bypass grafts. WBC 5.6, hemoglobin 11.5, platelet count 129. D-dimer 3.97. INR 1. Sodium 133, potassium 5.3, CO2 17, BUN 23 creatinine 1.25. Lactic acid 5.4 now 2.8. Troponin 0.042. ProBNP 251. Recent lipid panel revealed HDL 35, LDL 56. 06/26/2022 the patient is seen and evaluated with at bedside; arousable but does not follow any commands; continues to request DO NOT RESUSCITATE per patient's wishes -- fever with a T-max of 101.8, BP is 114/75. He is on 4 L of Oxymizer nasal cannula with a pulse ox of 95%. Patient was given aggressive fluid resuscitation and antibiotics and he remains on a combination of Zosyn and Flagyl and vancomycin -- The chest x-ray showed no evidence of any pneumonia; pro calcitonin level was quite elevated at 35.8; white cell count is at 7.5, hemoglobin is at panel with a platelet count of 116. BUN is 24 with a creatinine of 1.3. Lactic acid levels improved compared to yesterday. It is currently down to 2.6. BUN is 24 with a creatinine of 1.3. Serum bicarb is up to 22. The serum albumin is at 3.7. Calcium levels have been low at 6.3. In terms of blood sugar control, the patient is receiving insulin drip and this is running at 11 units an hour. Awaiting further input from consultants including vascular surgery and hematology oncology. ---- Prognosis remains guarded; is aware of patient's condition and prognosis and continues to request DO NOT RESUSCITATE . Sepsis; likely related to acute cystitis versus colitis - CT of abdomen completed in ED reveals colitis without diverticulitis along with cystitis- likely related to radiation therapy patient received for bladder cancer - Patient has been placed on IV antibiotics in form of IV vancomycin and Zosyn - Is going to be admitted to ICU; critical care and general surgery consulted - We will monitor CBC, CRP and pro-calcitonin 2. Acute Lactic acidosis; related to sepsis; patient received IV fluid bolus in ED; we will monitor and trend lactic acid levels; patient has received a total of 4 L of normal saline 3. Elevated troponin; non-ST SD versus type II ischemia; secondary to sepsis; we will continue to trend troponins and monitor EKG; consult cardiology for fur ther recommendations 4. History of CAD/CHF; patient remains on aspirin and statin therapy 5. Severe PVD; patient has history of aortobifemoral bypass surgery - Status post right above-knee amputee - Vascular surgery consulted 6. Diabetic foot ulcer; stage IV, left malleolus 7. Hypertension; currently not on an antihypertensive therapy 8. Hyperlipidemia; Lipitor 40 mg by mouth daily at bedtime 9. History of chronic DVT left lower extremity; continue with home dose of Xarelto Patient Condition at Discharge: Fair Plan - Discharge Summary New Discharge Prescriptions: No Action Aspirin EC [Ecotrin Low Dose] 81 mg PO DAILY #30 tablet. Atorvastatin [Lipitor] 40 mg PO DAILY lisinopriL [Zestril] 2.5 mg PO DAILY Pentoxifylline [TRENtal] 400 mg PO TID Rivaroxaban [Xarelto] 20 mg PO DAILY Ibuprofen 200 mg PO BID Gabapentin [Neurontin] 300 mg PO QID PRN PRN Reason: phantom pain carvediloL [Coreg] 12.5 mg PO BID Insulin NPH Hum/Reg Insulin Hm [Novolin 70-30 Flexpen] 50 unit SQ BID Loratadine 10 mg PO DAILY Prevalite 1 scoop PO DAILY Phenazopyridine [Pyridium] 200 mg PO TID PRN PRN Reason: urinary discomfort oxyBUTYnin chloride [Ditropan XL] 10 mg PO DAILY metFORMIN HCL ER [Glucophage XR] 1,000 mg PO BID Acetaminophen Tab [Tylenol Tab] 1,000 mg PO Q6HR PRN PRN Reason: Pain Tamsulosin HCl [Flomax] 0.4 mg PO DAILY Spironolactone [Aldactone] 12.5 mg PO DAILY Discharge Medication List Aspirin EC [Ecotrin Low Dose] 81 mg PO DAILY #30 tablet. 10/06/13 [Rx] Atorvastatin [Lipitor] 40 mg PO DAILY 11/07/13 [History] lisinopriL [Zestril] 2.5 mg PO DAILY 07/24/14 [History] Pentoxifylline [TRENtal] 400 mg PO TID 02/09/18 [History] Gabapentin [Neurontin] 300 mg PO QID PRN 12/10/19 [History] Ibuprofen 200 mg PO BID 12/10/19 [History] Rivaroxaban [Xarelto] 20 mg PO DAILY 12/10/19 [History] carvediloL [Coreg] 12.5 mg PO BID 12/10/19 [History] Insulin NPH Hum/Reg Insulin Hm [Novolin 70-30 Flexpen] 50 unit SQ BID 12/12/19 [History] Loratadine 10 mg PO DAILY 03/11/22 [History] Acetaminophen Tab [Tylenol Tab] 1,000 mg PO Q6HR PRN 06/24/22 [History] Phenazopyridine [Pyridium] 200 mg PO TID PRN 06/24/22 [History] Prevalite 1 scoop PO DAILY 06/24/22 [History] Spironolactone [Aldactone] 12.5 mg PO DAILY 06/24/22 [History] Tamsulosin HCl [Flomax] 0.4 mg PO DAILY 06/24/22 [History] metFORMIN HCL ER [Glucophage XR] 1,000 mg PO BID 06/24/22 [History] oxyBUTYnin chloride [Ditropan XL] 10 mg PO DAILY 06/24/22 [History] Follow up Appointment(s)/Referral(s): Ember Almonte DO [Primary Care Provider] - 1-2 days Discharge Disposition: - Preliminary Cause of Preliminary Cause of : sepsis
--- NOTE | 2022-07-05 19:23 | CDI ---
Documentation Clarification Form Date: 07/05/2022 7:07:36 PM From: Ofelia Simpson RN, CCDS Email: [email or web address] Admit Date: 06/24/2022 7:08:00 PM Patient Name: Kurt Yeager Visit Number: [id number] Discharge Date: 06/26/2022 8:04:00 PM ATTENTION: The Clinical Documentation Specialists (CDI) and [facility] Coding Staff appreciate your assistance in clarifying documentation. Please respond to the clarification below the line at the bottom and electronically sign. The CDI & [facility] Coding staff will review the response and follow-up if needed. Please note: Queries are made part of the Legal Health Record. If you have any questions, please contact the author of this message via ITS. Dr. Artemio Stacy Your patient had Sepsis and was hypoxic. Based on this information and the findings below, is there an additional diagnosis that is clinically appropriate for this patient? History/Risk Factors: The patient was admitted with Sepsis; likely related to acute cystitis versus colitis. CT of the abdomen completed in ED revealed colitis without diverticulitis along with cystitis- likely related to radiation therapy. CAD, HTN, Systolic CHF. Tobacco use: former smoker Clinical Indicators: 06/24 Vital signs: HR 140, RR 30, BP 105/65 06/26 RR 54-33-24 06/24 pox: 94% 06/25 pox: 66% 06/26 pox: 57% 06/25 Consult: Lung/Breathing assessment: decreased breath sounds at the bases 06/25 ABG: pH 7.41, pO2 60, pCO2 31, HCO3 19 Treatment: O2/BiPap: 2-6LNC 06/25-06/26 Bipap on 06/25 Venti mask on 06/26 Is there an additional diagnosis that is clinically appropriate for this patient? [ ] Acute Hypoxic Respiratory Failure (pO2 <60 mm Hg or SpO2 <91% on room air) [ ] Other Diagnosis, please specify [ ] Unable to determine MTDD
== END 2022-06-26 20:04 | disposition expired | DRG 871 ==
LOC: EC 15:13 → 3SCARD 19:08 → 2SICU 06-25 12:04
PROVIDERS: ADMIT Hospitalist; ATTEND Hospitalist
PROC: 02HV33Z Insertion of Infusion Device into Superior Vena Cava, Percutaneous Approach (ICD-10-PCS; principal; 2022-06-25)
PROC: 3E043XZ Introduction of Vasopressor into Central Vein, Percutaneous Approach (ICD-10-PCS; 2022-06-26)
DX: A41.9 Sepsis, unspecified organism (principal); I21.A1 Myocardial infarction type 2; L89.524 Pressure ulcer of left ankle, stage 4; J96.01 Acute respiratory failure with hypoxia; A09 Infectious gastroenteritis and colitis, unspecified; E87.21 Acute metabolic acidosis; G93.40 Encephalopathy, unspecified; I82.502 Chronic embolism and thrombosis of unspecified deep veins of left lower extremity; D69.6 Thrombocytopenia, unspecified; N30.90 Cystitis, unspecified without hematuria; E11.319 Type 2 diabetes mellitus with unspecified diabetic retinopathy without macular edema; E11.51 Type 2 diabetes mellitus with diabetic peripheral angiopathy without gangrene; E11.621 Type 2 diabetes mellitus with foot ulcer; E66.9 Obesity, unspecified; Z68.30 Body mass index [BMI] 30.0-30.9, adult; Z66 Do not resuscitate; I11.0 Hypertensive heart disease with heart failure; I08.1 Rheumatic disorders of both mitral and tricuspid valves; L97.509 Non-pressure chronic ulcer of other part of unspecified foot with unspecified severity; I50.9 Heart failure, unspecified; Z89.611 Acquired absence of right leg above knee; K81.1 Chronic cholecystitis; I25.10 Atherosclerotic heart disease of native coronary artery without angina pectoris; Z51.5 Encounter for palliative care; I25.2 Old myocardial infarction; I25.5 Ischemic cardiomyopathy; K57.30 Diverticulosis of large intestine without perforation or abscess without bleeding; I87.8 Other specified disorders of veins; K82.8 Other specified diseases of gallbladder; Z92.3 Personal history of irradiation; E78.5 Hyperlipidemia, unspecified; Z92.21 Personal history of antineoplastic chemotherapy; Z79.01 Long term (current) use of anticoagulants; E86.0 Dehydration; Z20.822 Contact with and (suspected) exposure to COVID-19; Z79.4 Long term (current) use of insulin; Z79.82 Long term (current) use of aspirin; Z79.84 Long term (current) use of oral hypoglycemic drugs; Z79.899 Other long term (current) drug therapy; Z82.49 Family history of ischemic heart disease and other diseases of the circulatory system; Z83.3 Family history of diabetes mellitus; Z85.51 Personal history of malignant neoplasm of bladder; Z86.010 Personal history of colon polyps; Z87.891 Personal history of nicotine dependence; Z89.422 Acquired absence of other left toe(s)
CPT/HCPCS: 36415; 36600; 70450; 71045; 74176; 80048; 80053; 81001; 82553; 82805; 83605; 83735; 83880; 84100; 84145; 84484; 85025; 85379; 85610; 85730; 86140; 87040; 87636; 93005; 93306; 93922; 96361; 96365; 96366; 96367; 96375; 96376; 99291